=== PATIENT | male | born 1950 | race African-American/Black ===

== ENCOUNTER 2017-11-18 10:57 | Inpatient (IN) | payer OTHER, MEDICAID ==
[2017-11-18 13:33] LABS: BASOPHILS % (AUTO) 0.9 % (0.2-1.0); EOSINOPHILS # (AUTO) 0.1 x10^3/uL (0.0-0.2); EOSINOPHILS % (AUTO) 2.3 % (0.9-2.9); HEMATOCRIT 46.6 % (42.0-54.0); LYMPHOCYTES # (AUTO) 0.7 X10^3/uL (1.3-2.9); LYMPHOCYTES % (AUTO) 13.2 % (21.0-51.0); MEAN CORPUSCULAR HGB CONC 32.2 g/dL (33.0-35.0); MEAN CORPUSCULAR VOLUME 83.7 fL (80.0-100.0); MEAN PLATELET VOLUME 8.1 fL (7.4-11.0); MONOCYTES # (AUTO) 0.5 x10^3/uL (0.3-0.8); NEUTROPHILS % (AUTO) 74.6 % (42.0-75.0); PLATELET COUNT 249 X10^3/uL (150.0-450.0); RED BLOOD COUNT 5.57 X10^6/uL (4.7-6.0); RED CELL DISTRIBUTION WIDTH 18.3 % (11.6-16.5); WHITE BLOOD COUNT 5.4 X10^3/uL (3.6-10.0)
[2017-11-18 13:43] LABS: ALANINE AMINOTRANSFERASE 39 Units/L (12-78); ALKALINE PHOSPHATASE 82 Units/L (46-116); ASPARTATE AMINO TRANSFERASE 23 Units/L (15-37); BLOOD UREA NITROGEN 32 mg/dL (7-18); CALCIUM 8.9 mg/dL (8.5-10.1); CARBON DIOXIDE 29.3 mmol/L (21-32); CHLORIDE 105 mmol/L (98-107); COR CA(FOR HYPOALB) 9.7 mg/dL (8.5-10.1); CREATININE 1.22 mg/dL (0.70-1.30); SODIUM 139 mmol/L (136-145); TOTAL PROTEIN 7.8 g/dL (6.4-8.2); eGFR BLACK RACES > 60 (>60); eGFR NON BLACK RACES > 60 (>60)
[2017-11-18] MEDS: ROCEPHIN VIAL 1 GM 1 GM in NS 100 ML IV + SPIKE MINIBAG* 100 ML IV SCH (14:00)
[2017-11-18] MEDS: NS 1000 ML 1,000 ML IV SCH (14:15)
[2017-11-18 15:00] LABS: BILIRUBIN,URINE NEGATIVE (NEGATIVE); BLOOD/HEMOGLOBIN,URINE 1+ (NEGATIVE); GLUCOSE, URINE NEGATIVE (NEGATIVE); KETONES,URINE NEGATIVE (NEGATIVE); LEUKOCYTE ESTERASE ,URINE 3+ (NEGATIVE); NITRITES,URINE POSITIVE (NEGATIVE); PROTEIN,URINE 2+ (NEGATIVE); UROBILINOGEN,URINE NORMAL (NORMAL)
[2017-11-18 15:08] LABS: APPEARANCE,URINE SLIGHTLY HAZY (CLEAR); BACTERIA,URINE 3+ /HPF (NEGATIVE); COLOR,URINE YELLOW (YELLOW); RBC,URINE 0-5 /HPF (NONE SEEN); SQUAMOUS EPITHELIAL CELL,UR RARE /HPF (NEGATIVE)
--- NOTE | 2017-11-18 15:59 | DR.UPDATE ---
H&P Update History and Physical Update: WAS SEEN IN THE OFFICE TODAY. HE WAS ADMITTED FOR LLE PAIN, EDEMA, AND CELLULITIS WELL SHORTNESS OF BREATH. AN H&P WAS COMPLETED PRIOR TO ADMISSION. PATIENT HAS BEEN SEEN AND EXAMINED WITH NO CHANGES NOTED TO H&P. Changes noted: NO Yes with the following:
[2017-11-18] MEDS: DUONEB 0.5 MG/3 MG NEB SCH ×2 (17:30→20:00)
--- NOTE | 2017-11-18 17:33 | CT ---
CT head without contrast Indication: Fall with dyspnea and soft tissue swelling to the frontal region. Small laceration. Technique: Axial images the skullbase to the vertex without contrast. Coronal and sagittal reformats provided. Findings: There is contusion over the frontal bone with soft tissue swelling. There is no acute intra cranial hemorrhage, mass or mass effect. No extra-axial fluid collection identified. Global atrophy n oted. Paranasal sinuses and mastoid air cells are clear. Impression: No acute intracranial hemorrhage. Contusion over the frontal bone. Mild global cerebral a trophy. Reported By:
--- NOTE | 2017-11-18 17:44 | VAS ---
Ultrasound bilateral lower extremity venous Doppler Indication: Left lower extremity pain and swelling. Technique: Dynamic grayscale and Doppler imaging through the bilateral lower extremity veins compress ion techniques and spectral analysis. Findings: The bilateral common femoral veins, superficial femoral veins, and popliteal veins are covington nt and compressible with normal respiratory phasicity. Impression: No right or left lower extremity deep vein thrombosis. Reported By:
--- NOTE | 2017-11-18 17:47 | RAD ---
Chest AP portable Indicates though and dyspnea. Fall. Findings: There is cardiomegaly and COPD change with scarring in the bases. Fullness of the right hil a is noted, possibly prominent pulmonary arteries but underlying lesion should be excluded. PA and la teral chest follow-up recommended. Impression: Cardiomegaly and COPD change. Fullness of the right juan could represent lesion. PA and l ateral chest follow-up recommended to further evaluate the possibility of neoplasia Reported By:
[2017-11-18] MEDS: COLACE CAP 100 MG PO PRN (21:10)
[2017-11-18] MEDS: MILK OF MAGNESIA PO PRN (21:11)
[2017-11-19] MEDS: DUONEB 0.5 MG/3 MG NEB SCH ×7 (00:30→20:34)
[2017-11-19] MEDS: NS 1000 ML 1,000 ML IV SCH ×3 (03:19→21:05)
[2017-11-19 06:40] LABS: BASOPHILS % (AUTO) 0.8 % (0.2-1.0); EOSINOPHILS # (AUTO) 0.2 x10^3/uL (0.0-0.2); EOSINOPHILS % (AUTO) 4.7 % (0.9-2.9); HEMATOCRIT 40.9 % (42.0-54.0); HEMOGLOBIN 13.2 g/dL (13.5-18.0); LYMPHOCYTES # (AUTO) 0.7 X10^3/uL (1.3-2.9); MEAN CORPUSCULAR HEMOGLOBIN 26.9 pg (27.0-34.0); MEAN CORPUSCULAR HGB CONC 32.3 g/dL (33.0-35.0); MEAN CORPUSCULAR VOLUME 83.2 fL (80.0-100.0); MONOCYTES # (AUTO) 0.6 x10^3/uL (0.3-0.8); MONOCYTES % (AUTO) 13.2 % (0.0-13.0); NEUTROPHILS % (AUTO) 66.3 % (42.0-75.0); PLATELET COUNT 202 X10^3/uL (150.0-450.0); RED BLOOD COUNT 4.91 X10^6/uL (4.7-6.0); RED CELL DISTRIBUTION WIDTH 17.8 % (11.6-16.5); WHITE BLOOD COUNT 4.5 X10^3/uL (3.6-10.0)
[2017-11-19 06:59] LABS: ALANINE AMINOTRANSFERASE 29 Units/L (12-78); ALBUMIN 2.5 g/dL (3.4-5.0); ALKALINE PHOSPHATASE 64 Units/L (46-116); ASPARTATE AMINO TRANSFERASE 20 Units/L (15-37); BLOOD UREA NITROGEN 23 mg/dL (7-18); CALCIUM 7.8 mg/dL (8.5-10.1); CARBON DIOXIDE 28.8 mmol/L (21-32); CHLORIDE 107 mmol/L (98-107); CREATININE 0.93 mg/dL (0.70-1.30); SODIUM 141 mmol/L (136-145); TOTAL PROTEIN 6.6 g/dL (6.4-8.2); eGFR BLACK RACES > 60 (>60); eGFR NON BLACK RACES > 60 (>60)
[2017-11-19] MEDS ORDERED: ROCEPHIN VIAL 1 GM ONE (08:39)
[2017-11-19] MEDS: ROCEPHIN VIAL 1 GM 1 GM in NS 100 ML IV + SPIKE MINIBAG* 100 ML IV SCH (08:41)
--- NOTE | 2017-11-19 16:31 | CT ---
CT chest with contrast Indication: Shortness of breath Comparison: None available Technique: Multiple axial images of the chest were obtained from the thoracic inlet to the upper abdo men after the administration of IV contrast. Findings: The thyroid gland is unremarkable. Heart size is normal without pericardial effusion. Moderate lopez ry artery atherosclerotic disease is noted. The thoracic aorta is tortuous with however normal in gabriel iber and configuration. The pulmonary artery demonstrates normal opacification without central fillin g defect to suggest PTE. There is dilatation the pulmonary artery measuring 3.9 cm in greatest calibe r. There is centrilobular emphysema and diffuse peribronchial thickening. A few foci of ground-glass opacity within the periphery the right upper lobe scattered within the periphery the right lower lobe and more severely affecting the the right lower lobe most consistent with multi focal infiltrates. T here is mild scarring/atelectasis within the left lung base otherwise left lung is clear. No pleural effusion or pneumothorax. Imaging of the upper abdomen demonstrates no acute inflammatory process. No acute osseous abnormality. Impression: 1. Small peripheral ground-glass opacities within the right upper and middle lobes with more confluen t ground-glass opacities within the dependent right lower lobe are most consistent with multi focal i nfiltrate/pneumonia. 2. Bilateral peribronchial thickening likely represents acute on chronic bronchitis in the setting of COPD. 3. Small right-sided pleural effusion. 4. Borderline enlarged lower paratracheal, subcarinal and bilateral hilar lymph nodes are indetermina te, this is likely reactive to the above described acute infiltrates however correlation with follow- up imaging in 3-6 months is recommended to ensure stability/resolution. 5. Mild pulmonary arterial dilatation is most consistent with pulmonary arterial hypertension. 6. Moderate coronary artery atherosclerotic disease. Reported By:
[2017-11-20] MEDS: DUONEB 0.5 MG/3 MG NEB SCH ×6 (01:07→16:45)
[2017-11-20] MEDS ORDERED: LASIX IVP SCH (06:00)
[2017-11-20 06:46] LABS: BASOPHILS % (AUTO) 0.7 % (0.2-1.0); EOSINOPHILS # (AUTO) 0.2 x10^3/uL (0.0-0.2); EOSINOPHILS % (AUTO) 2.6 % (0.9-2.9); HEMOGLOBIN 13.4 g/dL (13.5-18.0); LYMPHOCYTES # (AUTO) 0.5 X10^3/uL (1.3-2.9); LYMPHOCYTES % (AUTO) 8.6 % (21.0-51.0); MEAN CORPUSCULAR HGB CONC 31.9 g/dL (33.0-35.0); MEAN CORPUSCULAR VOLUME 84.5 fL (80.0-100.0); MEAN PLATELET VOLUME 7.9 fL (7.4-11.0); MONOCYTES # (AUTO) 0.7 x10^3/uL (0.3-0.8); MONOCYTES % (AUTO) 11.2 % (0.0-13.0); NEUTROPHILS # (AUTO) 4.8 x10^3/uL (2.2-4.8); NEUTROPHILS % (AUTO) 76.9 % (42.0-75.0); PLATELET COUNT 219 X10^3/uL (150.0-450.0); RED BLOOD COUNT 4.97 X10^6/uL (4.7-6.0); RED CELL DISTRIBUTION WIDTH 18.4 % (11.6-16.5); WHITE BLOOD COUNT 6.3 X10^3/uL (3.6-10.0)
[2017-11-20 06:51] LABS: ALANINE AMINOTRANSFERASE 28 Units/L (12-78); ALBUMIN 2.7 g/dL (3.4-5.0); ALKALINE PHOSPHATASE 67 Units/L (46-116); ASPARTATE AMINO TRANSFERASE 27 Units/L (15-37); BLOOD UREA NITROGEN 14 mg/dL (7-18); CALCIUM 8.5 mg/dL (8.5-10.1); CARBON DIOXIDE 30.2 mmol/L (21-32); CHLORIDE 105 mmol/L (98-107); COR CA(FOR HYPOALB) 9.5 mg/dL (8.5-10.1); CREATININE 0.83 mg/dL (0.70-1.30); SODIUM 140 mmol/L (136-145); TOTAL PROTEIN 7.2 g/dL (6.4-8.2); eGFR BLACK RACES > 60 (>60); eGFR NON BLACK RACES > 60 (>60)
--- NOTE | 2017-11-20 07:33 | RAD ---
HISTORY: Shortness of breath. Prior history of COPD, PAD and diabetes. Study: Single-view chest Comparison: CT scan of the chest done 11/19/2017. Findings: Trachea is midline. There is cardiomegaly with aortic uncoiling and pulmonary vascular congestion. Th ere are changes of COPD with bronchitic changes in the lung bases. No significant pleural fluid is se en. A pneumothorax is not identified. Osseous structures are intact. IMPRESSION: COPD with bronchitic changes in the lung bases, more so on the right. Reported By:
[2017-11-20] MEDS: NS 1000 ML 1,000 ML IV SCH ×2 (08:25→17:31)
[2017-11-20] MEDS ORDERED: ROCEPHIN VIAL 1 GM ONE (08:33)
[2017-11-20] MEDS: ROCEPHIN VIAL 1 GM 1 GM in NS 100 ML IV + SPIKE MINIBAG* 100 ML IV SCH (08:34)
[2017-11-20] MEDS ORDERED: PATIENT'S HOME MEDICATION (Albuterol Sulfate [Proair Hfa] 2 PUFF) INH PRN (09:38)
[2017-11-20] MEDS ORDERED: PATIENT'S HOME MEDICATION (Aspirin [Aspirin] 81 MG) PO SCH (09:45)
[2017-11-20] MEDS: NORCO 5/325 MG TAB PO PRN (09:46)
[2017-11-20] MEDS: COLACE CAP 100 MG PO PRN (09:46)
[2017-11-20] MEDS: MILK OF MAGNESIA PO PRN (09:46)
[2017-11-20] MEDS: ZESTRIL TAB 5 MG PO SCH (10:23)
[2017-11-20] MEDS: NORVASC TAB 5 MG PO SCH (10:23)
[2017-11-20] MEDS ORDERED: PROVENTIL NEB TX 0.083% 2.5MG/ 3ML NEB PRN (13:00)
--- NOTE | 2017-11-20 14:25 | PCM.PROG ---
Progress Note - Progress Note for Day of Date: 11/19/17 - Subjective Subjective: WAS ADMITTED FOR LLE EDEMA, CELLULITIS, AND SHORTNESS OF BREATH. TODAY, HE IS ALERT AND ORIENTED, LYING IN BED ON MORNING ROUNDS. HE CONTINUES WITH COMPLAINTS OF SHORTNESS OF BREATH AND PAIN TO THE LEFT LOWER LEG. ON EXAMINATION, HEART IS REGULAR IN RATE AND RHYTHM. BIALTERAL LUNGS ARE NOTED WITH RHONCHI THROUGHOUT. HE IS CURRENTLY UTILIZING OXYGEN VIA NASAL CANNULA AT 2L/MIN. STAFF REPORTS THAT OXYGEN SATURATION HAVE DROPPED TO HIGH 80S ON NASAL CANNULA THROUGHOUT THE NIGHT. ABDOMEN IS ROUND, SOFT, AND NON- TENDER WITH NORMAL BOWEL SOUNDS NOTED IN ALL QUADRANTS. LEFT LOWER EXTREMITY CONTINUES WITH EDEMA AND PAIN TO PALPATION. WARMTH NOTED TO SITE. THERE IS NORMAL RANGE OF MOTION NOTED TO ALL EXTREMITIES. VENOUS DOPPLER WAS NEGATIVE FOR DVT. HIS VITALS THIS MORNING ARE 98.3-73-18-93%-105/70. LABS WERE OBTAINED. ABNORMAL LAB VALUES INCLUDE THE FOLLOWING: HGB 13.2, HCT 40.9, BUN 23, CALCIUM 7.8, ALBUMIN 2.5. A URINALYSIS WAS OBTAINED ON ADMISSION AND REVEALED WBC TNTC, RBC 0-5, BACTERIA 3+, LEUKOCYTES 3+. URINE CULTURE, SPUTUM CULTURE, AND BLOOD CULTURES ARE PENDING. A CHEST XRAY WAS OBTAINED ON ADMISSION AND REPORTED CARDIOMEGALY AND COPD CHANGE. FULLNESS OF THE RGHT VELIA COULD REPRESENT LESION. FOLLOW-UP RECOMMENDED TO FURTHER EVALUATE THE POSSIBILITY OF NEOPLASIA. TODAY, WE PLAN TO OBTAIN AN ECHOCARDIOGRAM AND A CHEST CT WITH CONTRAST. OTHERWISE, WE WILL CONTINUE WITH ROCEPHIN 1GM IV DAILY FOR CELLULITIS AND URINARY TRACT INFECTION. WE PLAN TO FOLLOW UP WITH AM LABS AND CONTINUE TO MONITOR PATIENT . - Past Medical Family Social History Past Med/Fam/Surg Hx: No changes since H&P Allergies: Allergies No Known Drug Allergies Allergy (Verified 11/18/17 13:50) - Review of Systems ROS: No change since H&P - Vital Signs and I&O's Vital Signs: Temperature 98.0 F Pulse Rate [Left Brachial] 75 Pulse Rate [Bilateral Radial] 77 Pulse Rate 79 Respiratory Rate 21 Blood Pressure [Right Arm] 102/76 Blood Pressure [Left Arm] 114/74 Blood Pressure 128/79 O2 Sat by Pulse Oximetry 92 Intake and Output: Intake & Output 11/18/17 11/19/17 11/20/1711/21/18 11:59 11:59 11:59 11:59 Intake Total 8667 9043 Output Total 485 7120 Balance 974 165 - Physical Exam Oriented: Normal Eyes: Normal Ear: Normal Nose: Normal Throat: Normal Respiratory: Right, Left, Generalized, Diminished, Rhonchi Cardiovascular: Normal : Normal Auscultation: Bowel Sounds: Normal Palpation: Normal Tenderness: Normal Skin: Tender (LEFT LOWER EXTREMITY ), Hot Musculoskeletal: Left, Leg, Swelling, Tender Psychiatric: Normal Mood Description: Calm Affect: Normal Speech Pattern: Clear, Appropriate - Laboratory and Diagnostics Result Diagrams: 11/20/17 06:07 11/20/17 06:07 Labs: 11/18/17 13:16 Blood Blood Culture - Preliminary 11/18/17 13:10 Blood Blood Culture - Preliminary 11/18/17 14:45 Urine,Clean Catch Urine Culture - Final Escherichia Coli 11/18/17 14:35 Sputum - Expectorated Sputum Sputum Culture - Final Enterobacter Cloacae 11/18/17 14:35 Sputum - Expectorated Sputum - Final Laboratory WBC 6.3 X10^3/uL (3.6-10.0) 11/20/17 06:07 RBC 4.97 X10^6/uL (4.7-6.0) 11/20/17 06:07 Hgb 13.4 g/dL (13.5-18.0) L 11/20/17 06:07 Hct 42.0 % (42.0-54.0) 11/20/17 06:07 MCV 84.5 fL (80.0-100.0) 11/20/17 06:07 MCH 27.0 pg (27.0-34.0) 11/20/17 06:07 MCHC 31.9 g/dL (33.0-35.0) L 11/20/17 06:07 RDW 18.4 % (11.6-16.5) H 11/20/17 06:07 Plt Count 219 X10^3/uL (150.0-450.0) 11/20/17 06:07 MPV 7.9 fL (7.4-11.0) 11/20/17 06:07 Neut % 76.9 % (42.0-75.0) H 11/20/17 06:07 Lymph % 8.6 % (21.0-51.0) L 11/20/17 06:07 [place] % 11.2 % (0.0-13.0) 11/20/17 06:07 Eos % 2.6 % (0.9-2.9) 11/20/17 06:07 Baso % 0.7 % (0.2-1.0) 11/20/17 06:07 Neut # 4.8 x10^3/uL (2.2-4.8) 11/20/17 06:07 Lymph # 0.5 X10^3/uL (1.3-2.9) L 11/20/17 06:07 [place] # 0.7 x10^3/uL (0.3-0.8) 11/20/17 06:07 Eos # 0.2 x10^3/uL (0.0-0.2) 11/20/17 06:07 Baso # 0.0 X10^3/uL (0.0-0.1) 11/20/17 06:07 Absolute Nucleated RBC 0.1 /100WBC 11/20/17 06:07 Sodium 140 mmol/L (136-145) 11/20/17 06:07 Corrected Sodium TNP 11/20/17 06:07 Potassium 4.6 mmol/L (3.5-5.1) 11/20/17 06:07 Chloride 105 mmol/L (98-107) 11/20/17 06:07 Carbon Dioxide 30.2 mmol/L (21-32) 11/20/17 06:07 BUN 14 mg/dL (7-18) 11/20/17 06:07 Creatinine 0.83 mg/dL (0.70-1.30) 11/20/17 06:07 Est GFR (MDRD) Af Amer > 60 (>60) 11/20/17 06:07 Est GFR (MDRD) Non-Af > 60 (>60) 11/20/17 06:07 Glucose 73 mg/dL (65-99) 11/20/17 06:07 Calcium 8.5 mg/dL (8.5-10.1) 11/20/17 06:07 Corrected Calcium 9.5 mg/dL (8.5-10.1) 11/20/17 06:07 Total Bilirubin 0.50 mg/dL (0.2-1.0) 11/20/17 06:07 AST 27 Units/L (15-37) 11/20/17 06:07 ALT 28 Units/L (12-78) 11/20/17 06:07 Alkaline Phosphatase 67 Units/L (46-116) 11/20/17 06:07 Total Protein 7.2 g/dL (6.4-8.2) 11/20/17 06:07 Albumin 2.7 g/dL (3.4-5.0) L 11/20/17 06:07 Globulin 4.5 g/dL (2.5-4.5) 11/20/17 06:07 Albumin/Globulin Ratio 0.6 Ratio (1.1-2.1) L 11/20/17 06:07 Specimen Type Clean catch urine 11/18/17 14:45 Urine Color Yellow (YELLOW) 11/18/17 14:45 Urine Appearance Slightly hazy (CLEAR) 11/18/17 14:45 Urine pH 5.0 (5.0 - 8.0) 11/18/17 14:45 Ur Specific [place] 1.020 (1.000-1.030) 11/18/17 14:45 Urine Protein 2+ (NEGATIVE) 11/18/17 14:45 Urine Glucose (UA) Negative (NEGATIVE) 11/18/17 14:45 Urine Ketones Negative (NEGATIVE) 11/18/17 14:45 Urine Occult Blood 1+ (NEGATIVE) 11/18/17 14:45 Urine Nitrite Positive (NEGATIVE) 11/18/17 14:45 Urine Bilirubin Negative (NEGATIVE) 11/18/17 14:45 Urine Urobilinogen Normal (NORMAL) 11/18/17 14:45 Ur Leukocyte Esterase 3+ (NEGATIVE) 11/18/17 14:45 Urine RBC 0-5 /HPF (NONE SEEN) 11/18/17 14:45 Urine WBC Tntc /HPF (NONE SEEN) 11/18/17 14:45 Ur Squamous Epith Cells Rare /HPF (NEGATIVE) 11/18/17 14:45 Urine Bacteria 3+ /HPF (NEGATIVE) 11/18/17 14:45 Ur Culture Indicated? Yes/culture set up 11/18/17 14:45 - Plan (1) Cellulitis Status: Acute Qualifiers: Site of cellulitis: extremity Site of cellulitis of extremity: lower extremity Laterality: left Qualified Code(s): L03.116 - Cellulitis of left lower limb Plan: ROCEPHIN 1GM IV DAILY, CONTINUE TO MONITOR (2) Shortness of breath Status: Acute Plan: CONTINUE SUPPLEMENTAL OXYGEN, OBTAIN ECHO AND CHEST CT, CONTINUE TO MONITOR (3) Urinary tract infection Status: Acute Qualifiers: Urinary tract infection type: acute cystitis Hematuria presence: without hematuria Qualified Code(s): N30.00 - Acute cystitis without hematuria Plan: CONTINUE ROCEPHIN 1GM IV DAILY, CONTINUE TO MONITOR
[2017-11-20 15:48] LABS: ABG BASE EXCESS 6.3 mmol/L (-2.0-2.0)
[2017-11-20 15:50] LABS: ABG HCO3 33.7 mmol/L (22-26)
--- NOTE | 2017-11-20 17:54 | RAD ---
STUDY: CHEST, ONE VIEW History: Decreased O2 saturations. Comparison: November 20, 2017 at 7:12 a.m. Findings: The trachea is midline. There are changes of COPD in both lungs. Patchy airspace and interstitial opa cities are noted in both lung bases. There is prominence of the right hilum. Multiple suprahilar mass on the right is noted. The cardiac silhouette, mediastinum and osseous structures are unchanged. IMPRESSION: 1. Bilateral basilar infiltrates. 2. COPD. 3. Hilar prominence, possible right suprahilar mass. Would consider CT chest for further evaluation. Reported By:
[2017-11-20] MEDS: PEPCID 20 MG IV PREMIX* 20 MG/50 ML BAG IV SCH (21:40)
[2017-11-20] MEDS: PROTONIX INJ 40 MG VIAL IVP SCH (21:40)
[2017-11-20] MEDS: SOLU-Medrol 40 MG VIAL IVP SCH (21:40)
[2017-11-21] MEDS: DUONEB 0.5 MG/3 MG NEB SCH ×6 (01:40→19:57)
[2017-11-21] MEDS: NS 1000 ML 1,000 ML IV SCH ×3 (04:59→19:49)
[2017-11-21] MEDS: SOLU-Medrol 40 MG VIAL IVP SCH ×3 (05:00→22:11)
[2017-11-21 05:30] LABS: ABG BASE EXCESS 5.9 mmol/L (-2.0-2.0)
[2017-11-21 06:50] LABS: BASOPHILS % (AUTO) 0.2 % (0.2-1.0); HEMATOCRIT 40.9 % (42.0-54.0); HEMOGLOBIN 13.1 g/dL (13.5-18.0); LYMPHOCYTES # (AUTO) 0.3 X10^3/uL (1.3-2.9); LYMPHOCYTES % (AUTO) 4.7 % (21.0-51.0); MEAN CORPUSCULAR HEMOGLOBIN 27.1 pg (27.0-34.0); MEAN CORPUSCULAR HGB CONC 31.9 g/dL (33.0-35.0); MEAN CORPUSCULAR VOLUME 84.8 fL (80.0-100.0); MEAN PLATELET VOLUME 8.3 fL (7.4-11.0); MONOCYTES # (AUTO) 0 x10^3/uL (0.3-0.8); MONOCYTES % (AUTO) 0.7 % (0.0-13.0); NEUTROPHILS # (AUTO) 5.1 x10^3/uL (2.2-4.8); NEUTROPHILS % (AUTO) 94.4 % (42.0-75.0); PLATELET COUNT 197 X10^3/uL (150.0-450.0); RED BLOOD COUNT 4.83 X10^6/uL (4.7-6.0); RED CELL DISTRIBUTION WIDTH 18.1 % (11.6-16.5); WHITE BLOOD COUNT 5.4 X10^3/uL (3.6-10.0)
[2017-11-21 07:12] LABS: PLATELET MORPHOLOGY COMMENT NORMAL (NORMAL)
[2017-11-21 07:27] LABS: ALANINE AMINOTRANSFERASE 27 Units/L (12-78); ALBUMIN 2.6 g/dL (3.4-5.0); ALKALINE PHOSPHATASE 59 Units/L (46-116); ASPARTATE AMINO TRANSFERASE 27 Units/L (15-37); BLOOD UREA NITROGEN 20 mg/dL (7-18); CALCIUM 7.9 mg/dL (8.5-10.1); CARBON DIOXIDE 28.6 mmol/L (21-32); CHLORIDE 106 mmol/L (98-107); COR NA(FOR HYPERGLY) 142 mmol/L (136-145); CREATININE 0.95 mg/dL (0.70-1.30); SODIUM 141 mmol/L (136-145); TOTAL PROTEIN 6.9 g/dL (6.4-8.2); eGFR BLACK RACES > 60 (>60); eGFR NON BLACK RACES > 60 (>60)
--- NOTE | 2017-11-21 07:44 | RAD ---
HISTORY: Shortness of breath Study: Chest AP portable Comparison: 11/20/2017 Findings: The heart is mildly enlarged. The aorta is calcified. The juan are normal. No congestive heart failur e is noted. The upper lung gonzalez are clear. Interstitial lung changes are present in the lower lobes bilaterally. There is some clearing of the peribronchial infiltrates present on the prior examinatio n. No pleural effusions are identified. IMPRESSION: Mild cardiomegaly without congestive heart failure Improving bibasilar peribronchial infiltrates which are superimposed on chronic interstitial lung prema nges Reported By:
[2017-11-21] MEDS: NORVASC TAB 5 MG PO SCH (09:56)
[2017-11-21] MEDS: ASPIRIN EC 81 MG PO SCH (09:56)
[2017-11-21] MEDS: ZESTRIL TAB 5 MG PO SCH (09:56)
[2017-11-21] MEDS: ROCEPHIN VIAL 1 GM 1 GM in NS 100 ML IV + SPIKE MINIBAG* 100 ML IV SCH (09:57)
[2017-11-21] MEDS: PROTONIX INJ 40 MG VIAL IVP SCH ×2 (09:57→22:10)
[2017-11-21] MEDS: PEPCID 20 MG IV PREMIX* 20 MG/50 ML BAG IV SCH ×2 (13:56→22:11)
[2017-11-21] MEDS ORDERED: VALIUM PO PRN (20:21)
[2017-11-21] MEDS: NORCO 5/325 MG TAB PO PRN (22:10)
[2017-11-21] MEDS: COLACE CAP 100 MG PO PRN (22:10)
[2017-11-21] MEDS: MILK OF MAGNESIA PO PRN (22:20)
[2017-11-22] MEDS: DUONEB 0.5 MG/3 MG NEB SCH ×5 (00:27→20:58)
[2017-11-22] MEDS: SOLU-Medrol 40 MG VIAL IVP SCH ×3 (05:20→21:36)
[2017-11-22 06:52] LABS: BASOPHILS % (AUTO) 0.3 % (0.2-1.0); HEMATOCRIT 39.5 % (42.0-54.0); HEMOGLOBIN 12.5 g/dL (13.5-18.0); LYMPHOCYTES # (AUTO) 0.3 X10^3/uL (1.3-2.9); LYMPHOCYTES % (AUTO) 7.4 % (21.0-51.0); MEAN CORPUSCULAR HEMOGLOBIN 26.8 pg (27.0-34.0); MEAN CORPUSCULAR HGB CONC 31.7 g/dL (33.0-35.0); MEAN CORPUSCULAR VOLUME 84.6 fL (80.0-100.0); MEAN PLATELET VOLUME 8.2 fL (7.4-11.0); MONOCYTES # (AUTO) 0.1 x10^3/uL (0.3-0.8); NEUTROPHILS # (AUTO) 3.2 x10^3/uL (2.2-4.8); NEUTROPHILS % (AUTO) 89.3 % (42.0-75.0); PLATELET COUNT 174 X10^3/uL (150.0-450.0); RED BLOOD COUNT 4.67 X10^6/uL (4.7-6.0); RED CELL DISTRIBUTION WIDTH 18.2 % (11.6-16.5); WHITE BLOOD COUNT 3.6 X10^3/uL (3.6-10.0)
[2017-11-22 06:59] LABS: ALANINE AMINOTRANSFERASE 27 Units/L (12-78); ALBUMIN 2.6 g/dL (3.4-5.0); ALKALINE PHOSPHATASE 52 Units/L (46-116); ASPARTATE AMINO TRANSFERASE 21 Units/L (15-37); BLOOD UREA NITROGEN 29 mg/dL (7-18); CHLORIDE 107 mmol/L (98-107); COR CA(FOR HYPOALB) 9.1 mg/dL (8.5-10.1); COR NA(FOR HYPERGLY) 144 mmol/L (136-145); CREATININE 1.03 mg/dL (0.70-1.30); SODIUM 142 mmol/L (136-145); TOTAL PROTEIN 6.6 g/dL (6.4-8.2); eGFR BLACK RACES > 60 (>60); eGFR NON BLACK RACES > 60 (>60)
--- NOTE | 2017-11-22 07:02 | RAD ---
HISTORY: Shortness of breath Study: Single-view chest Comparison: 11/21/2017 Findings: The trachea is midline. The cardiac silhouette is borderline in size with a tortuous thoracic aorta. Chronic interstitial lung changes throughout the right and left chest are observed with improved aer ation of the right and left base. The bony thorax is unremarkable. IMPRESSION: 1. Chronic interstitial lung changes with improving airspace opacification of the right and left bas e. Reported By:
[2017-11-22] MEDS: NS 1000 ML 1,000 ML IV SCH ×2 (08:49→21:36)
[2017-11-22] MEDS: ASPIRIN EC 81 MG PO SCH (09:02)
[2017-11-22] MEDS: NORVASC TAB 5 MG PO SCH (09:03)
[2017-11-22] MEDS: PEPCID 20 MG IV PREMIX* 20 MG/50 ML BAG IV SCH ×2 (09:03→21:45)
[2017-11-22] MEDS: ROCEPHIN VIAL 1 GM 1 GM in NS 100 ML IV + SPIKE MINIBAG* 100 ML IV SCH (09:03)
[2017-11-22] MEDS: PROTONIX INJ 40 MG VIAL IVP SCH ×2 (09:03→21:36)
[2017-11-22] MEDS: ZESTRIL TAB 5 MG PO SCH (09:04)
[2017-11-23] MEDS: DUONEB 0.5 MG/3 MG NEB SCH ×6 (01:10→20:53)
[2017-11-23 03:52] LABS: BILIRUBIN,URINE NEGATIVE (NEGATIVE); BLOOD/HEMOGLOBIN,URINE 2+ (NEGATIVE); GLUCOSE, URINE NEGATIVE (NEGATIVE); KETONES,URINE NEGATIVE (NEGATIVE); LEUKOCYTE ESTERASE ,URINE NEGATIVE (NEGATIVE); NITRITES,URINE NEGATIVE (NEGATIVE); PROTEIN,URINE 2+ (NEGATIVE); UROBILINOGEN,URINE NORMAL (NORMAL)
[2017-11-23 04:05] LABS: APPEARANCE,URINE CLEAR (CLEAR); BACTERIA,URINE NEGATIVE /HPF (NEGATIVE); COLOR,URINE YELLOW (YELLOW); HYALINE CASTS, URINE MODERATE /LPF (NEGATIVE); MUCUS,URINE FEW /HPF (NEGATIVE); SQUAMOUS EPITHELIAL CELL,UR RARE /HPF (NEGATIVE)
[2017-11-23 05:45] LABS: ABG BASE EXCESS 4.2 mmol/L (-2.0-2.0)
[2017-11-23 05:47] LABS: ABG ALLEN TEST POS
[2017-11-23] MEDS: SOLU-Medrol 40 MG VIAL IVP SCH ×3 (06:05→21:00)
[2017-11-23] MEDS: NS 1000 ML 1,000 ML IV SCH (06:05)
[2017-11-23 06:40] LABS: HEMOGLOBIN 14.2 g/dL (13.5-18.0); LYMPHOCYTES # (AUTO) 0.3 X10^3/uL (1.3-2.9); MEAN PLATELET VOLUME 8.3 fL (7.4-11.0)
[2017-11-23 06:50] LABS: BASOPHILS % (AUTO) 0.4 % (0.2-1.0); EOSINOPHILS % (AUTO) 0.1 % (0.9-2.9); HEMATOCRIT 44.4 % (42.0-54.0); LYMPHOCYTES % (AUTO) 6.1 % (21.0-51.0); MEAN CORPUSCULAR HEMOGLOBIN 27.4 pg (27.0-34.0); MEAN CORPUSCULAR VOLUME 85.6 fL (80.0-100.0); MONOCYTES # (AUTO) 0.2 x10^3/uL (0.3-0.8); MONOCYTES % (AUTO) 5.2 % (0.0-13.0); NEUTROPHILS % (AUTO) 88.2 % (42.0-75.0); PLATELET COUNT 191 X10^3/uL (150.0-450.0); RED BLOOD COUNT 5.19 X10^6/uL (4.7-6.0); RED CELL DISTRIBUTION WIDTH 18.4 % (11.6-16.5); WHITE BLOOD COUNT 4.5 X10^3/uL (3.6-10.0)
[2017-11-23 07:23] LABS: eGFR BLACK RACES > 60 (>60); eGFR NON BLACK RACES > 60 (>60)
--- NOTE | 2017-11-23 07:34 | RAD ---
HISTORY: Shortness of breath Study: Single-view chest Comparison: 11/22/2017 Findings: The trachea is midline. The cardiac silhouette is unremarkable. Improved aeration of left lower lob e. However, worsening opacification of the right base consistent with persistent bronchopneumonia. T he bony thorax is unremarkable. IMPRESSION: Worsening opacification of the right base consistent with persistent bronchopneumonia Reported By:
[2017-11-23 08:36] LABS: ALANINE AMINOTRANSFERASE 42 Units/L (12-78); ALBUMIN 3.2 g/dL (3.4-5.0); ALKALINE PHOSPHATASE 61 Units/L (46-116); ASPARTATE AMINO TRANSFERASE 34 Units/L (15-37); BLOOD UREA NITROGEN 32 mg/dL (7-18); CALCIUM 8.5 mg/dL (8.5-10.1); CARBON DIOXIDE 33.7 mmol/L (21-32); CHLORIDE 107 mmol/L (98-107); COR CA(FOR HYPOALB) 9.1 mg/dL (8.5-10.1); COR NA(FOR HYPERGLY) 143 mmol/L (136-145); CREATININE 1.08 mg/dL (0.70-1.30); SODIUM 142 mmol/L (136-145); TOTAL PROTEIN 8.4 g/dL (6.4-8.2)
[2017-11-23] MEDS: ASPIRIN EC 81 MG PO SCH (09:03)
[2017-11-23] MEDS: NORVASC TAB 5 MG PO SCH (09:04)
[2017-11-23] MEDS: PROTONIX INJ 40 MG VIAL IVP SCH ×2 (09:04→20:18)
[2017-11-23] MEDS: ZESTRIL TAB 5 MG PO SCH (09:04)
[2017-11-23] MEDS: ROCEPHIN VIAL 1 GM 1 GM in NS 100 ML IV + SPIKE MINIBAG* 100 ML IV SCH (09:05)
[2017-11-23] MEDS: D5W 1000 ML IV 1,000 ML IV SCH ×2 (09:10→18:16)
[2017-11-23] MEDS: PEPCID TAB 20 MG PO SCH ×3 (10:07→20:20)
[2017-11-23] MEDS: VALIUM INJ IVP PRN ×2 (11:46→21:56)
[2017-11-23 12:19] LABS: ABG BASE EXCESS 6.4 mmol/L (-2.0-2.0)
[2017-11-23 12:20] LABS: ABG HCO3 36.4 mmol/L (22-26)
[2017-11-23 13:57] LABS: APPEARANCE,URINE CLOUDY (CLEAR); COLOR,URINE YELLOW (YELLOW); GLUCOSE, URINE NEGATIVE (NEGATIVE); KETONES,URINE NEGATIVE (NEGATIVE); PROTEIN,URINE 2+ (NEGATIVE)
[2017-11-23 13:58] LABS: BILIRUBIN,URINE NEGATIVE (NEGATIVE); BLOOD/HEMOGLOBIN,URINE 5+ (NEGATIVE); NITRITES,URINE NEGATIVE (NEGATIVE)
[2017-11-23 13:59] LABS: BACTERIA,URINE TRACE /HPF (NEGATIVE); LEUKOCYTE ESTERASE ,URINE 1+ (NEGATIVE); RBC,URINE 3+ /HPF (NONE SEEN); SQUAMOUS EPITHELIAL CELL,UR FEW /HPF (NEGATIVE); UROBILINOGEN,URINE NORMAL (NORMAL)
[2017-11-23 14:00] LABS: YEAST,URINE FEW /HPF (NEGATIVE)
[2017-11-23 16:29] LABS: ABG BASE EXCESS 7.3 mmol/L (-2.0-2.0); ABG HCO3 35.1 mmol/L (22-26)
[2017-11-24] MEDS: DUONEB 0.5 MG/3 MG NEB SCH ×6 (01:14→20:05)
[2017-11-24] MEDS: D5W 1000 ML IV 1,000 ML IV SCH ×3 (02:28→21:24)
--- NOTE | 2017-11-24 05:27 | PCM.PROG ---
Progress Note - Progress Note for Day of Date: 11/20/17 - Subjective Subjective: DEMAR WAS ADMITTED FOR LLE EDEMA, CELLULITIS, AND SHORTNESS OF BREATH. TODAY, HE IS ALERT AND ORIENTED, LYING IN BED ON MORNING ROUNDS. HE CONTINUES WITH COMPLAINTS OF SHORTNESS OF BREATH AND PAIN TO THE LEFT LOWER LEG. ON EXAMINATION, HEART IS REGULAR IN RATE AND RHYTHM. BIALTERAL LUNGS ARE NOTED WITH RHONCHI THROUGHOUT. HE IS CURRENTLY UTILIZING OXYGEN VIA VENTI-MASK. ABDOMEN IS ROUND, SOFT, AND NON-TENDER WITH NORMAL BOWEL SOUNDS NOTED IN ALL QUADRANTS. LEFT LOWER EXTREMITY CONTINUES WITH EDEMA AND PAIN TO PALPATION. WARMTH NOTED TO SITE. THERE IS NORMAL RANGE OF MOTION NOTED TO ALL EXTREMITIES. HIS VITALS THIS MORNING ARE 98.2-82-25-93%98/63. OXYGEN SATURATION FELL INTO THE 80S THROUGHOUT THE NIGHT AND PATIENT WAS PLACED ON VENTI-MASK. LABS WERE OBTAINED. ABNORMAL LAB VALUES INCLUDE THE FOLLOWING: HGB 13.4, ALBUMIN 2.7. URINE CULTURE REPORTS GROWTH OF E.COLI. SPUTUM CULTURE REPORTS GROWTH OF ENTEROBACTER CLOACAE. BOTH ARE SENSITIVE TO THE ROCEPHIN THAT HE IS CURRENTLY ON. BLOOD CULTURES ARE PENDING. A CHEST XRAY WAS OBTAINED AND REPORTED COPD WITH BRONCHIATIC CHANGES IN THE LUNG BASES, MORESO ON THE RIGHT. AN ECHOCARDIOGRAM WAS OBTAINED YESTERDAY AND REPORTED AN EJECTION FRACTION OF 60%. CHEST CT REPORTED SMALL PERIPHERAL GROUND GLASS OPACITIES IN THE RIGHT UPPER AND MIDDLE LOBES CONSISTENT WITH PNEUMONIA. BILATERAL PERIBRONCHIAL THICKENING LIKELY REPRESENTING ACUTE ON CHRONIC IN THE SETTING OF COPD. SMALL RIGHT SIDED PLEURAL EFFUSION. MILD PULMONARY ARTERIAL DILATION MOST CONSISTENT WITH PULMONARY ARTERIAL HTN. MILD CORONARY ARTERY ATHEROSCLEROTIC DISEASE. AN ABG WAS OBTAINED DUE TO COMPLAINTS OF SHORTNESS OF BREATH AND DECREASED OXYGEN SATURATIONS. IT REVEALED PC02 61, P02 26, HC03 33.47, 02 SATURATION 44.0 RA, BASE EXCESS 6.3. TODAY, WE WILL START PATIENT ON SOLU-MEDROL 80MG IV Q8H, PROVENTIL NEB TX, NORVASC 5MG DAILY, AD WILL DECREASE LISINOPRIL TO 5MG PO DAILY , AND PROTONIX 40MG IV BID. OTHERWISE, WE WILL CONTINUE WITH ROCEPHIN 1GM IV DAILY FOR CELLULITIS AND URINARY TRACT INFECTION. WE PLAN TO FOLLOW UP WITH AM LABS AND CONTINUE TO MONITOR PATIENT . - Past Medical Family Social History Past Med/Fam/Surg Hx: No changes since H&P Allergies: Allergies No Known Drug Allergies Allergy (Verified 11/18/17 13:50) - Review of Systems ROS: No change since H&P - Vital Signs and I&O's Vital Signs: Temperature 97.8 F Pulse Rate [Left Brachial] 56 Pulse Rate [Bilateral Radial] 77 Pulse Rate 60 Respiratory Rate 25 Blood Pressure [Right Arm] 102/76 Blood Pressure [Left Arm] 117/75 Blood Pressure 128/79 O2 Sat by Pulse Oximetry 100 Intake and Output: Intake & Output 11/21/17 11/22/17 11/23/17 11/24/17 11:59 11:59 11:59 11:59 Intake Total 2730 1481 1120 1087 Output Total 800 179 260 1623 Balance 1930 581 520 87 - Physical Exam Oriented: Normal Eyes: Normal Ear: Normal Nose: Normal Throat: Normal Respiratory: Right, Left, Generalized, Diminished, Rhonchi Cardiovascular: Normal : Normal Auscultation: Bowel Sounds: Normal Palpation: Normal Tenderness: Normal Skin: Tender (LEFT LOWER EXTREMITY ), Hot Musculoskeletal: Left, Leg, Swelling, Tender Psychiatric: Normal Mood Description: Calm Affect: Normal Speech Pattern: Clear, Appropriate - Laboratory and Diagnostics Result Diagrams: 11/23/17 05:59 11/23/17 05:59 Labs: 11/18/17 13:10 Blood Blood Culture - Preliminary 11/18/17 13:16 Blood Blood Culture - Preliminary 11/18/17 14:45 Urine,Clean Catch Urine Culture - Final Escherichia Coli 11/18/17 14:35 Sputum - Expectorated Sputum Sputum Culture - Final Enterobacter Cloacae 11/18/17 14:35 Sputum - Expectorated Sputum - Final Laboratory WBC 4.5 X10^3/uL (3.6-10.0) 11/23/17 05:59 RBC 5.19 X10^6/uL (4.7-6.0) 11/23/17 05:59 Hgb 14.2 g/dL (13.5-18.0) 11/23/17 05:59 Hct 44.4 % (42.0-54.0) 11/23/17 05:59 MCV 85.6 fL (80.0-100.0) 11/23/17 05:59 MCH 27.4 pg (27.0-34.0) 11/23/17 05:59 MCHC 32.0 g/dL (33.0-35.0) L 11/23/17 05:59 RDW 18.4 % (11.6-16.5) H 11/23/17 05:59 Plt Count 191 X10^3/uL (150.0-450.0) 11/23/17 05:59 Plt Count Comment Adequate (ADEQUATE) 11/21/17 05:55 MPV 8.3 fL (7.4-11.0) 11/23/17 05:59 Neut % 88.2 % (42.0-75.0) H 11/23/17 05:59 Lymph % 6.1 % (21.0-51.0) L 11/23/17 05:59 [place] % 5.2 % (0.0-13.0) 11/23/17 05:59 Eos % 0.1 % (0.9-2.9) L 11/23/17 05:59 Baso % 0.4 % (0.2-1.0) 11/23/17 05:59 Neut # 4.0 x10^3/uL (2.2-4.8) 11/23/17 05:59 Lymph # 0.3 X10^3/uL (1.3-2.9) L 11/23/17 05:59 [place] # 0.2 x10^3/uL (0.3-0.8) L 11/23/17 05:59 Eos # 0.0 x10^3/uL (0.0-0.2) 11/23/17 05:59 Baso # 0.0 X10^3/uL (0.0-0.1) 11/23/17 05:59 Absolute Nucleated RBC 0.2 /100WBC 11/23/17 05:59 Total Counted 100 11/21/17 05:55 Neutrophils % (Manual) 93 % (39-76) H 11/21/17 05:55 Lymphocytes % (Manual) 6 % (13-43) L 11/21/17 05:55 Monocytes % (Manual) 1 % (4-9) L 11/21/17 05:55 Plt Morphology Comment Normal (NORMAL) 11/21/17 05:55 RBC Morphology Normal (NORMAL) 11/21/17 05:55 Sample Site Rb 11/23/17 16:22 ABG pH 7.340 (7.35-7.45) L 11/23/17 16:22 ABG pCO2 65.0 mmHg (35.0-45.0) H* 11/23/17 16:22 ABG pO2 89.0 mmHg (80.0-100.0) 11/23/17 16:22 ABG HCO3 35.1 mmol/L (22-26) H* 11/23/17 16:22 ABG O2 Saturation 96.0 % (90-100) 11/23/17 16:22 ABG Base Excess 7.3 mmol/L (-2.0-2.0) H 11/23/17 16:22 Colin Test Na 11/23/17 16:22 A-a Gradient 79.0 mmHg 11/23/17 16:22 FiO2 35.000 11/23/17 16:22 Blood Gas Comments Pt linda well. cdn 11/23/17 16:22 Sodium 142 mmol/L (136-145) 11/23/17 05:59 Corrected Sodium 143 mmol/L (136-145) 11/23/17 05:59 Potassium 6.0 mmol/L (3.5-5.1) H* 11/23/17 05:59 Chloride 107 mmol/L (98-107) 11/23/17 05:59 Carbon Dioxide 33.7 mmol/L (21-32) H 11/23/17 05:59 BUN 32 mg/dL (7-18) H 11/23/17 05:59 Creatinine 1.08 mg/dL (0.70-1.30) 11/23/17 05:59 Est GFR (MDRD) Af Amer > 60 (>60) 11/23/17 05:59 Est GFR (MDRD) Non-Af > 60 (>60) 11/23/17 05:59 Glucose 126 mg/dL (65-99) H 11/23/17 05:59 Calcium 8.5 mg/dL (8.5-10.1) 11/23/17 05:59 Corrected Calcium 9.1 mg/dL (8.5-10.1) 11/23/17 05:59 Total Bilirubin 0.30 mg/dL (0.2-1.0) 11/23/17 05:59 AST 34 Units/L (15-37) 11/23/17 05:59 ALT 42 Units/L (12-78) 11/23/17 05:59 Alkaline Phosphatase 61 Units/L (46-116) 11/23/17 05:59 Total Protein 8.4 g/dL (6.4-8.2) H 11/23/17 05:59 Albumin 3.2 g/dL (3.4-5.0) L 11/23/17 05:59 Globulin 5.2 g/dL (2.5-4.5) H 11/23/17 05:59 Albumin/Globulin Ratio 0.6 Ratio (1.1-2.1) L 11/23/17 05:59 Specimen Type Catherized urine 11/23/17 13:37 Urine Color Yellow (YELLOW) 11/23/17 13:37 Urine Appearance Cloudy (CLEAR) 11/23/17 13:37 Urine pH 5.0 (5.0 - 8.0) 11/23/17 13:37 Ur Specific [place] 1.025 (1.000-1.030) 11/23/17 13:37 Urine Protein 2+ (NEGATIVE) 11/23/17 13:37 Urine Glucose (UA) Negative (NEGATIVE) 11/23/17 13:37 Urine Ketones Negative (NEGATIVE) 11/23/17 13:37 Urine Occult Blood 5+ (NEGATIVE) 11/23/17 13:37 Urine Nitrite Negative (NEGATIVE) 11/23/17 13:37 Urine Bilirubin Negative (NEGATIVE) 11/23/17 13:37 Urine Urobilinogen Normal (NORMAL) 11/23/17 13:37 Ur Leukocyte Esterase 1+ (NEGATIVE) 11/23/17 13:37 Urine RBC 3+ /HPF (NONE SEEN) 11/23/17 13:37 Urine WBC 2+ /HPF (NONE SEEN) 11/23/17 13:37 Ur Squamous Epith Cells Few /HPF (NEGATIVE) 11/23/17 13:37 Urine Bacteria Trace /HPF (NEGATIVE) 11/23/17 13:37 Hyaline Casts Moderate /LPF (NEGATIVE) 11/23/17 02:24 Urine Mucus Few /HPF (NEGATIVE) 11/23/17 02:24 Urine Yeast Few /HPF (NEGATIVE) 11/23/17 13:37 Ur Culture Indicated? Yes/culture set up 11/23/17 13:37 - Plan (1) Cellulitis Status: Acute Qualifiers: Site of cellulitis: extremity Site of cellulitis of extremity: lower extremity Laterality: left Qualified Code(s): L03.116 - Cellulitis of left lower limb Plan: ROCEPHIN 1GM IV DAILY, CONTINUE TO MONITOR (2) Shortness of breath Status: Acute Plan: CONTINUE SUPPLEMENTAL OXYGEN, OBTAIN ECHO AND CHEST CT, CONTINUE TO MONITOR (3) Urinary tract infection Status: Acute Qualifiers: Urinary tract infection type: acute cystitis Hematuria presence: without hematuria Qualified Code(s): N30.00 - Acute cystitis without hematuria Plan: CONTINUE ROCEPHIN 1GM IV DAILY, CONTINUE TO MONITOR
[2017-11-24 05:37] LABS: ABG HCO3 38.1 mmol/L (22-26)
[2017-11-24 06:17] LABS: BASOPHILS % (AUTO) 0.9 % (0.2-1.0); HEMATOCRIT 42.3 % (42.0-54.0); HEMOGLOBIN 13.5 g/dL (13.5-18.0); LYMPHOCYTES # (AUTO) 0.2 X10^3/uL (1.3-2.9); LYMPHOCYTES % (AUTO) 5.6 % (21.0-51.0); MEAN CORPUSCULAR HEMOGLOBIN 27.1 pg (27.0-34.0); MEAN CORPUSCULAR HGB CONC 31.9 g/dL (33.0-35.0); MEAN CORPUSCULAR VOLUME 84.9 fL (80.0-100.0); MEAN PLATELET VOLUME 8.5 fL (7.4-11.0); MONOCYTES # (AUTO) 0.2 x10^3/uL (0.3-0.8); MONOCYTES % (AUTO) 5.9 % (0.0-13.0); NEUTROPHILS # (AUTO) 3.1 x10^3/uL (2.2-4.8); NEUTROPHILS % (AUTO) 87.6 % (42.0-75.0); PLATELET COUNT 147 X10^3/uL (150.0-450.0); RED BLOOD COUNT 4.98 X10^6/uL (4.7-6.0); RED CELL DISTRIBUTION WIDTH 17.6 % (11.6-16.5); WHITE BLOOD COUNT 3.6 X10^3/uL (3.6-10.0)
[2017-11-24 06:23] LABS: ALANINE AMINOTRANSFERASE 40 Units/L (12-78); ALBUMIN 2.8 g/dL (3.4-5.0); ALKALINE PHOSPHATASE 50 Units/L (46-116); ASPARTATE AMINO TRANSFERASE 26 Units/L (15-37); BLOOD UREA NITROGEN 33 mg/dL (7-18); CALCIUM 8.4 mg/dL (8.5-10.1); CARBON DIOXIDE 31.6 mmol/L (21-32); CHLORIDE 106 mmol/L (98-107); COR CA(FOR HYPOALB) 9.4 mg/dL (8.5-10.1); COR NA(FOR HYPERGLY) 142 mmol/L (136-145); CREATININE 1.02 mg/dL (0.70-1.30); SODIUM 141 mmol/L (136-145); TOTAL PROTEIN 7.1 g/dL (6.4-8.2); eGFR BLACK RACES > 60 (>60); eGFR NON BLACK RACES > 60 (>60)
[2017-11-24 07:00] LABS: BAND NEUTROPHILS % 4 % (0-10)
[2017-11-24 07:01] LABS: PLATELET MORPHOLOGY COMMENT NORMAL (NORMAL)
--- NOTE | 2017-11-24 07:44 | RAD ---
History: Shortness of breath, COPD, diabetes, comparison 11/23/2017 Study: Portable AP erect chest labeled 6:44 a.m. shows the cardiac silhouette to be mildly enlarged. The pulmonary vasculature appears at upper limits normal. There has been improvement in the opacity in the right base. Overall fluid status has improved. Impression: 1. Improving fluid status. 2. Clearing infiltration right base. Reported By:
[2017-11-24] MEDS: ASPIRIN EC 81 MG PO SCH (09:58)
[2017-11-24] MEDS: NORVASC TAB 5 MG PO SCH ×2 (09:59→10:06)
[2017-11-24] MEDS: PEPCID TAB 20 MG PO SCH ×2 (09:59→22:25)
[2017-11-24] MEDS: ROCEPHIN VIAL 1 GM 1 GM in NS 100 ML IV + SPIKE MINIBAG* 100 ML IV SCH (09:59)
[2017-11-24] MEDS: PROTONIX INJ 40 MG VIAL IVP SCH ×2 (10:00→21:00)
[2017-11-24] MEDS: ZESTRIL TAB 5 MG PO SCH ×2 (10:00→10:05)
--- NOTE | 2017-11-24 13:08 | PCM.PROG ---
Progress Note - Progress Note for Day of Date: 11/21/17 - Subjective Subjective: IS BEING TREATED FOR LLE CELLULITIS, PEUMONIA, COPD EXACERBATION, AND A URINARY TRACT INFECTION. TODAY, HE IS ALERT AND ORIENTED, LYING IN BED ON MORNING ROUNDS. HE CONTINUES WITH COMPLAINTS OF SHORTNESS OF BREATH AND PAIN TO THE LEFT LOWER LEG. ON EXAMINATION, HEART IS REGULAR IN RATE AND RHYTHM. BIALTERAL LUNGS ARE NOTED WITH RHONCHI THROUGHOUT. HE IS CURRENTLY UTILIZING HIGH FLOW HEATED OXYGEN. ABDOMEN IS ROUND, SOFT, AND NON-TENDER WITH NORMAL BOWEL SOUNDS NOTED IN ALL QUADRANTS. LEFT LOWER EXTREMITY CONTINUES WITH EDEMA AND PAIN TO PALPATION. WARMTH NOTED TO SITE. THERE IS NORMAL RANGE OF MOTION NOTED TO ALL EXTREMITIES. HIS VITALS THIS MORNING ARE 99.2-90-32-90%-99/ 57. OXYGEN SATURATIONS CONTINUE TO RUN IN THE LOW 90S ON OXYGEN. LABS WERE OBTAINED. ABNORMAL LAB VALUES INCLUDE THE FOLLOWING: HGB 13.1, HCT 40.9, POTASSIUM 5.3, BUN 20, GLUCOSE 133, CALCIUM 7.9. AN ABG WAS OBTAINED AND REVEALED PH 7.320, PC02 66, P02 77, HC03 34, BASE EXCESS 5.9. A CHEST XRAY WAS OBTAINED AND REPORTED MILD CARDIOMEGALY WITHOUT CONGESTIVE HEART FAILURE. IMPROVING BIBASILAR PERIBRONCHIAL INFILTRATES WHICH ARE SUPERIMPOSED ON CHRONIC INTERSTITIAL LUNG CHANGES. TODAY, WE WILL CONTINUE WITH IV ANTIBIOTICS, RESPIRATORY TREATMENTS, AND SUPPLEMENTAL OXYGEN. WE PLAN TO FOLLOW UP WITH AM LABS AND CONTINUE TO MONITOR PATIENT. - Past Medical Family Social History Past Med/Fam/Surg Hx: No changes since H&P Allergies: Allergies No Known Drug Allergies Allergy (Verified 11/18/17 13:50) - Review of Systems ROS: No change since H&P - Vital Signs and I&O's Vital Signs: Temperature 97.8 F Pulse Rate [Left Brachial] 66 Pulse Rate [Bilateral Radial] 77 Pulse Rate 60 Respiratory Rate 24 Blood Pressure [Right Arm] 102/76 Blood Pressure [Left Arm] 118/67 Blood Pressure 128/79 O2 Sat by Pulse Oximetry 99 Intake and Output: Intake & Output 11/22/17 11/23/17 11/24/17 11/25/17 11:59 11:59 11:59 11:59 Intake Total 1481 1120 1087 Output Total 560 378 9289 Balance 581 520 87 - Physical Exam Oriented: Normal Eyes: Normal Ear: Normal Nose: Normal Throat: Normal Respiratory: Right, Left, Generalized, Diminished, Rhonchi Cardiovascular: Normal : Normal Auscultation: Bowel Sounds: Normal Palpation: Normal Tenderness: Normal Skin: Tender (LEFT LOWER EXTREMITY ), Hot Musculoskeletal: Left, Leg, Swelling, Tender Psychiatric: Normal Mood Description: Calm Affect: Normal Speech Pattern: Clear, Appropriate - Laboratory and Diagnostics Result Diagrams: 11/24/17 05:37 11/24/17 05:37 Labs: 11/18/17 13:10 Blood Blood Culture - Final 11/18/17 13:16 Blood Blood Culture - Final 11/18/17 14:45 Urine,Clean Catch Urine Culture - Final Escherichia Coli 11/18/17 14:35 Sputum - Expectorated Sputum Sputum Culture - Final Enterobacter Cloacae 11/18/17 14:35 Sputum - Expectorated Sputum - Final Laboratory WBC 3.6 X10^3/uL (3.6-10.0) 11/24/17 05:37 RBC 4.98 X10^6/uL (4.7-6.0) 11/24/17 05:37 Hgb 13.5 g/dL (13.5-18.0) 11/24/17 05:37 Hct 42.3 % (42.0-54.0) 11/24/17 05:37 MCV 84.9 fL (80.0-100.0) 11/24/17 05:37 MCH 27.1 pg (27.0-34.0) 11/24/17 05:37 MCHC 31.9 g/dL (33.0-35.0) L 11/24/17 05:37 RDW 17.6 % (11.6-16.5) H 11/24/17 05:37 Plt Count 147 X10^3/uL (150.0-450.0) L 11/24/17 05:37 Plt Count Comment Adequate (ADEQUATE) 11/24/17 05:37 MPV 8.5 fL (7.4-11.0) 11/24/17 05:37 Neut % 87.6 % (42.0-75.0) H 11/24/17 05:37 Lymph % 5.6 % (21.0-51.0) L 11/24/17 05:37 [place] % 5.9 % (0.0-13.0) 11/24/17 05:37 Eos % 0.0 % (0.9-2.9) L 11/24/17 05:37 Baso % 0.9 % (0.2-1.0) 11/24/17 05:37 Neut # 3.1 x10^3/uL (2.2-4.8) 11/24/17 05:37 Lymph # 0.2 X10^3/uL (1.3-2.9) L 11/24/17 05:37 [place] # 0.2 x10^3/uL (0.3-0.8) L 11/24/17 05:37 Eos # 0.0 x10^3/uL (0.0-0.2) 11/24/17 05:37 Baso # 0.0 X10^3/uL (0.0-0.1) 11/24/17 05:37 Absolute Nucleated RBC 0.1 /100WBC 11/24/17 05:37 Total Counted 100 11/24/17 05:37 Neutrophils % (Manual) 80 % (39-76) H 11/24/17 05:37 Band Neutrophils % 4 % (0-10) 11/24/17 05:37 Lymphocytes % (Manual) 12 % (13-43) L 11/24/17 05:37 Monocytes % (Manual) 4 % (4-9) 11/24/17 05:37 Plt Morphology Comment Normal (NORMAL) 11/24/17 05:37 RBC Morphology Normal (NORMAL) 11/24/17 05:37 Sample Site [facility] 11/24/17 05:19 ABG pH 7.260 (7.35-7.45) L 11/24/17 05:19 ABG pCO2 85.0 mmHg (35.0-45.0) H* 11/24/17 05:19 ABG pO2 78.0 mmHg (80.0-100.0) L 11/24/17 05:19 ABG HCO3 38.1 mmol/L (22-26) H* 11/24/17 05:19 ABG O2 Saturation 93.0 % (90-100) 11/24/17 05:19 ABG Base Excess 8.0 mmol/L (-2.0-2.0) H 11/24/17 05:19 Colin Test Na 11/24/17 05:19 A-a Gradient 65.0 mmHg 11/24/17 05:19 FiO2 35.000 11/24/17 05:19 Blood Gas Comments Sally abg well-mtf 11/24/17 05:19 Sodium 141 mmol/L (136-145) 11/24/17 05:37 Corrected Sodium 142 mmol/L (136-145) 11/24/17 05:37 Potassium 5.7 mmol/L (3.5-5.1) H 11/24/17 05:37 Chloride 106 mmol/L (98-107) 11/24/17 05:37 Carbon Dioxide 31.6 mmol/L (21-32) 11/24/17 05:37 BUN 33 mg/dL (7-18) H 11/24/17 05:37 Creatinine 1.02 mg/dL (0.70-1.30) 11/24/17 05:37 Est GFR (MDRD) Af Amer > 60 (>60) 11/24/17 05:37 Est GFR (MDRD) Non-Af > 60 (>60) 11/24/17 05:37 Glucose 144 mg/dL (65-99) H 11/24/17 05:37 Calcium 8.4 mg/dL (8.5-10.1) L 11/24/17 05:37 Corrected Calcium 9.4 mg/dL (8.5-10.1) 11/24/17 05:37 Total Bilirubin 0.40 mg/dL (0.2-1.0) 11/24/17 05:37 AST 26 Units/L (15-37) 11/24/17 05:37 ALT 40 Units/L (12-78) 11/24/17 05:37 Alkaline Phosphatase 50 Units/L (46-116) 11/24/17 05:37 Total Protein 7.1 g/dL (6.4-8.2) 11/24/17 05:37 Albumin 2.8 g/dL (3.4-5.0) L 11/24/17 05:37 Globulin 4.3 g/dL (2.5-4.5) 11/24/17 05:37 Albumin/Globulin Ratio 0.7 Ratio (1.1-2.1) L 11/24/17 05:37 Specimen Type Catherized urine 11/23/17 13:37 Urine Color Yellow (YELLOW) 11/23/17 13:37 Urine Appearance Cloudy (CLEAR) 11/23/17 13:37 Urine pH 5.0 (5.0 - 8.0) 11/23/17 13:37 Ur Specific [place] 1.025 (1.000-1.030) 11/23/17 13:37 Urine Protein 2+ (NEGATIVE) 11/23/17 13:37 Urine Glucose (UA) Negative (NEGATIVE) 11/23/17 13:37 Urine Ketones Negative (NEGATIVE) 11/23/17 13:37 Urine Occult Blood 5+ (NEGATIVE) 11/23/17 13:37 Urine Nitrite Negative (NEGATIVE) 11/23/17 13:37 Urine Bilirubin Negative (NEGATIVE) 11/23/17 13:37 Urine Urobilinogen Normal (NORMAL) 11/23/17 13:37 Ur Leukocyte Esterase 1+ (NEGATIVE) 11/23/17 13:37 Urine RBC 3+ /HPF (NONE SEEN) 11/23/17 13:37 Urine WBC 2+ /HPF (NONE SEEN) 11/23/17 13:37 Ur Squamous Epith Cells Few /HPF (NEGATIVE) 11/23/17 13:37 Urine Bacteria Trace /HPF (NEGATIVE) 11/23/17 13:37 Hyaline Casts Moderate /LPF (NEGATIVE) 11/23/17 02:24 Urine Mucus Few /HPF (NEGATIVE) 11/23/17 02:24 Urine Yeast Few /HPF (NEGATIVE) 11/23/17 13:37 Ur Culture Indicated? Yes/culture set up 11/23/17 13:37 - Plan (1) Pneumonia Status: Acute Qualifiers: Pneumonia type: due to other aerobic Gram-negative bacteria Laterality: bilateral Lung location: lower lobe of lung Qualified Code(s): J15.6 - Pneumonia due to other Gram-negative bacteria Plan: CONTINUE ROCEPHIN, CONTINUE RESPIRATORY TREATMENTS, CONTINUE SUPPLEMETAL OXYGEN, CONTINUE TO MONITOR (2) COPD with acute exacerbation Status: Acute Plan: CONTINUE RESPIRATORY TREATMENTS, CONTINUE SUPPLEMETAL OXYGEN, CONTINUE TO MONITOR (3) Respiratory failure with hypercapnia Status: Acute Qualifiers: Chronicity: acute Qualified Code(s): J96.02 - Acute respiratory failure with hypercapnia Plan: CONTINUE ROCEPHIN, CONTINUE RESPIRATORY TREATMENTS, CONTINUE SUPPLEMETAL OXYGEN, CONTINUE TO MONITOR (4) Cellulitis Status: Acute Qualifiers: Site of cellulitis: extremity Site of cellulitis of extremity: lower extremity Laterality: left Qualified Code(s): L03.116 - Cellulitis of left lower limb Plan: ROCEPHIN 1GM IV DAILY, CONTINUE TO MONITOR (5) Shortness of breath Status: Acute Plan: CONTINUE SUPPLEMENTAL OXYGEN, OBTAIN ECHO AND CHEST CT, CONTINUE TO MONITOR (6) Urinary tract infection Status: Acute Qualifiers: Urinary tract infection type: acute cystitis Hematuria presence: without hematuria Qualified Code(s): N30.00 - Acute cystitis without hematuria Plan: CONTINUE ROCEPHIN 1GM IV DAILY, CONTINUE TO MONITOR
[2017-11-24 13:34] LABS: ABG HCO3 35.7 mmol/L (22-26)
[2017-11-24 14:18] LABS: ABG BASE EXCESS 9.8 mmol/L (-2.0-2.0)
[2017-11-24] MEDS: COLACE CAP 100 MG PO SCH (22:24)
[2017-11-24] MEDS: MILK OF MAGNESIA PO SCH (22:25)
[2017-11-25] MEDS: DUONEB 0.5 MG/3 MG NEB SCH ×6 (00:52→22:00)
[2017-11-25 06:00] LABS: ABG BASE EXCESS 13.7 mmol/L (-2.0-2.0)
[2017-11-25 06:01] LABS: ABG HCO3 42.4 mmol/L (22-26)
[2017-11-25 06:13] LABS: BASOPHILS % (AUTO) 0.1 % (0.2-1.0); EOSINOPHILS % (AUTO) 0.9 % (0.9-2.9); HEMATOCRIT 43.7 % (42.0-54.0); HEMOGLOBIN 13.9 g/dL (13.5-18.0); LYMPHOCYTES # (AUTO) 0.4 X10^3/uL (1.3-2.9); LYMPHOCYTES % (AUTO) 6.6 % (21.0-51.0); MEAN CORPUSCULAR HEMOGLOBIN 26.8 pg (27.0-34.0); MEAN CORPUSCULAR HGB CONC 31.9 g/dL (33.0-35.0); MEAN CORPUSCULAR VOLUME 84.1 fL (80.0-100.0); MEAN PLATELET VOLUME 8.5 fL (7.4-11.0); MONOCYTES # (AUTO) 0.6 x10^3/uL (0.3-0.8); MONOCYTES % (AUTO) 10.8 % (0.0-13.0); NEUTROPHILS # (AUTO) 4.5 x10^3/uL (2.2-4.8); NEUTROPHILS % (AUTO) 81.6 % (42.0-75.0); PLATELET COUNT 161 X10^3/uL (150.0-450.0); RED CELL DISTRIBUTION WIDTH 17.3 % (11.6-16.5); WHITE BLOOD COUNT 5.5 X10^3/uL (3.6-10.0)
[2017-11-25 06:23] LABS: ALANINE AMINOTRANSFERASE 43 Units/L (12-78); ALBUMIN 2.7 g/dL (3.4-5.0); ALKALINE PHOSPHATASE 51 Units/L (46-116); ASPARTATE AMINO TRANSFERASE 28 Units/L (15-37); BLOOD UREA NITROGEN 25 mg/dL (7-18); CALCIUM 8.2 mg/dL (8.5-10.1); CARBON DIOXIDE 34.3 mmol/L (21-32); CHLORIDE 103 mmol/L (98-107); COR CA(FOR HYPOALB) 9.2 mg/dL (8.5-10.1); CREATININE 0.82 mg/dL (0.70-1.30); SODIUM 140 mmol/L (136-145); TOTAL PROTEIN 6.9 g/dL (6.4-8.2); eGFR BLACK RACES > 60 (>60); eGFR NON BLACK RACES > 60 (>60)
--- NOTE | 2017-11-25 06:31 | RAD ---
HISTORY: Shortness of breath Study: Chest AP portable Comparison: 11/24/2017 Findings: The heart is within normal limits in size. The juan are normal. The aorta is calcified. No congestive heart failure is noted. The lungs are generally hyperinflated although there is some subsegmental at electasis in the right lung base. No acute infiltrates or pleural effusions are identified. The bony thorax is unremarkable. IMPRESSION: Mild cardiomegaly without congestive heart failure Subsegmental atelectasis right lung base Reported By:
[2017-11-25] MEDS: D5W 1000 ML IV 1,000 ML IV SCH ×3 (08:18→16:07)
[2017-11-25] MEDS ORDERED: AMINOPHYLLINE INJ 1,000 MG in DEXTROSE 5% 460 ML IV PRN (09:40)
[2017-11-25] MEDS: MILK OF MAGNESIA PO SCH ×3 (09:44→22:07)
[2017-11-25] MEDS: COLACE CAP 100 MG PO SCH ×2 (09:44→22:06)
[2017-11-25] MEDS: PEPCID TAB 20 MG PO SCH ×2 (09:44→22:07)
[2017-11-25] MEDS: NORVASC TAB 5 MG PO SCH (09:45)
[2017-11-25] MEDS: ZESTRIL TAB 5 MG PO SCH (09:46)
[2017-11-25] MEDS: ASPIRIN EC 81 MG PO SCH (09:46)
[2017-11-25] MEDS ORDERED: NS 100 ML IV 100 ML IV ONE (09:47)
[2017-11-25] MEDS: PROTONIX INJ 40 MG VIAL IVP SCH ×2 (09:53→21:00)
[2017-11-25] MEDS: ROCEPHIN VIAL 1 GM 1 GM in NS 100 ML IV + SPIKE MINIBAG* 100 ML IV SCH (09:53)
[2017-11-25] MEDS: AMINOPHYLLINE IV PRN ×3 (11:20→22:05)
[2017-11-25] MEDS: D5W IV PRN ×3 (11:20→22:05)
--- NOTE | 2017-11-25 13:12 | PCM.PROG ---
Progress Note - Progress Note for Day of Date: 11/22/17 - Subjective Subjective: IS BEING TREATED FOR LLE CELLULITIS, PEUMONIA, COPD EXACERBATION, AND A URINARY TRACT INFECTION. TODAY, HE IS LYING IN BED WITH EYES CLOSED ON MORNING ROUNDS. PATIENT IS DIFFICULT TO AROUSE THIS MORNING. ON EXAMINATION, HEART IS REGULAR IN RATE AND RHYTHM. BIALTERAL LUNGS ARE NOTED WITH SCATTERED WHEEZING AND RHONCHI THROUGHOUT. HE IS CURRENTLY UTILIZING HIGH FLOW HEATED OXYGEN. ABDOMEN IS ROUND, SOFT, AND NON-TENDER WITH NORMAL BOWEL SOUNDS NOTED IN ALL QUADRANTS. LEFT LOWER EXTREMITY CONTINUES WITH EDEMA AND WARMTH NOTED TO SITE. STAFF REPORTS THAT PATIENT HAS HAD INTERMITTENT CONFUSION THROUGHOUT THE NIGHT. HIS VITALS THIS MORNING ARE 98.7-73-18-93%-91/51. OXYGEN SATURATIONS CONTINUE TO RUN IN THE LOW 90S ON OXYGEN. LABS WERE OBTAINED. ABNORMAL LAB VALUES INCLUDE THE FOLLOWING: RBC 4.67, HGB 12.5, HCT 39.5, POTASSIUM 5.4, BUN 29, GLUCOSE 168, CALCIUM 8.0, ALBUMIN 2.6. A CHEST XRAY WAS OBTAINED AND REPORTED CHRONIC INTERSTITIAL LUNG CHANGES WITH IMPROVING AIRSPACE OPACIFICATION OF THE RIGHT AND LEFT BASE. TODAY, WE WILL CONTINUE WITH IV ANTIBIOTICS, RESPIRATORY TREATMENTS, AND SUPPLEMENTAL OXYGEN. WE PLAN TO FOLLOW UP WITH AM LABS AND CONTINUE TO MONITOR PATIENT. - Past Medical Family Social History Past Med/Fam/Surg Hx: No changes since H&P Allergies: Allergies No Known Drug Allergies Allergy (Verified 11/18/17 13:50) - Review of Systems ROS: No change since H&P - Vital Signs and I&O's Vital Signs: Temperature 98.1 F Pulse Rate [Left Brachial] 83 Pulse Rate [Bilateral Radial] 77 Pulse Rate 79 Respiratory Rate 25 Blood Pressure [Right Arm] 102/76 Blood Pressure [Left Arm] 127/76 Blood Pressure 128/79 O2 Sat by Pulse Oximetry 99 Intake and Output: Intake & Output 11/23/17 11/24/17 11/25/17 11/26/17 11:59 11:59 11:59 11:59 Intake Total 1120 1087 1159 Output Total 600 1000 1350 Balance 520 87 -191 - Physical Exam Oriented: Other (DROWSY ) Eyes: Normal Ear: Normal Nose: Normal Throat: Normal Respiratory: Right, Left, Generalized, Wheezes, Rhonchi Cardiovascular: Normal : Normal Auscultation: Bowel Sounds: Normal Palpation: Normal Tenderness: Normal Skin: Tender (LEFT LOWER EXTREMITY ), Hot Musculoskeletal: Left, Leg, Swelling, Tender Psychiatric: Normal Mood Description: Calm Affect: Normal Speech Pattern: Clear, Appropriate - Laboratory and Diagnostics Result Diagrams: 11/25/17 05:35 11/25/17 05:35 Labs: 11/23/17 13:37 Urine,Catheterized Urine Culture - Final 11/18/17 13:10 Blood Blood Culture - Final 11/18/17 13:16 Blood Blood Culture - Final 11/18/17 14:45 Urine,Clean Catch Urine Culture - Final Escherichia Coli 11/18/17 14:35 Sputum - Expectorated Sputum Sputum Culture - Final Enterobacter Cloacae 11/18/17 14:35 Sputum - Expectorated Sputum - Final Laboratory WBC 5.5 X10^3/uL (3.6-10.0) 11/25/17 05:35 RBC 5.20 X10^6/uL (4.7-6.0) 11/25/17 05:35 Hgb 13.9 g/dL (13.5-18.0) 11/25/17 05:35 Hct 43.7 % (42.0-54.0) 11/25/17 05:35 MCV 84.1 fL (80.0-100.0) 11/25/17 05:35 MCH 26.8 pg (27.0-34.0) L 11/25/17 05:35 MCHC 31.9 g/dL (33.0-35.0) L 11/25/17 05:35 RDW 17.3 % (11.6-16.5) H 11/25/17 05:35 Plt Count 161 X10^3/uL (150.0-450.0) 11/25/17 05:35 Plt Count Comment Adequate (ADEQUATE) 11/24/17 05:37 MPV 8.5 fL (7.4-11.0) 11/25/17 05:35 Neut % 81.6 % (42.0-75.0) H 11/25/17 05:35 Lymph % 6.6 % (21.0-51.0) L 11/25/17 05:35 [place] % 10.8 % (0.0-13.0) 11/25/17 05:35 Eos % 0.9 % (0.9-2.9) 11/25/17 05:35 Baso % 0.1 % (0.2-1.0) L 11/25/17 05:35 Neut # 4.5 x10^3/uL (2.2-4.8) 11/25/17 05:35 Lymph # 0.4 X10^3/uL (1.3-2.9) L 11/25/17 05:35 [place] # 0.6 x10^3/uL (0.3-0.8) 11/25/17 05:35 Eos # 0.0 x10^3/uL (0.0-0.2) 11/25/17 05:35 Baso # 0.0 X10^3/uL (0.0-0.1) 11/25/17 05:35 Absolute Nucleated RBC 0.3 /100WBC 11/25/17 05:35 Total Counted 100 11/24/17 05:37 Neutrophils % (Manual) 80 % (39-76) H 11/24/17 05:37 Band Neutrophils % 4 % (0-10) 11/24/17 05:37 Lymphocytes % (Manual) 12 % (13-43) L 11/24/17 05:37 Monocytes % (Manual) 4 % (4-9) 11/24/17 05:37 Plt Morphology Comment Normal (NORMAL) 11/24/17 05:37 RBC Morphology Normal (NORMAL) 11/24/17 05:37 Sample Site [facility] 11/25/17 05:42 ABG pH 7.360 (7.35-7.45) 11/25/17 05:42 ABG pCO2 75.0 mmHg (35.0-45.0) H* 11/25/17 05:42 ABG pO2 67.0 mmHg (80.0-100.0) L 11/25/17 05:42 ABG HCO3 42.4 mmol/L (22-26) H* 11/25/17 05:42 ABG O2 Saturation 92.0 % (90-100) 11/25/17 05:42 ABG Base Excess 13.7 mmol/L (-2.0-2.0) H 11/25/17 05:42 Colin Test Na 11/25/17 05:42 A-a Gradient 89.0 mmHg 11/25/17 05:42 FiO2 35.000 11/25/17 05:42 Blood Gas Comments Sally abg well-mtf 11/25/17 05:42 Sodium 140 mmol/L (136-145) 11/25/17 05:35 Corrected Sodium TNP 11/25/17 05:35 Potassium 4.7 mmol/L (3.5-5.1) 11/25/17 05:35 Chloride 103 mmol/L (98-107) 11/25/17 05:35 Carbon Dioxide 34.3 mmol/L (21-32) H 11/25/17 05:35 BUN 25 mg/dL (7-18) H 11/25/17 05:35 Creatinine 0.82 mg/dL (0.70-1.30) 11/25/17 05:35 Est GFR (MDRD) Af Amer > 60 (>60) 11/25/17 05:35 Est GFR (MDRD) Non-Af > 60 (>60) 11/25/17 05:35 Glucose 95 mg/dL (65-99) 11/25/17 05:35 Calcium 8.2 mg/dL (8.5-10.1) L 11/25/17 05:35 Corrected Calcium 9.2 mg/dL (8.5-10.1) 11/25/17 05:35 Total Bilirubin 0.80 mg/dL (0.2-1.0) 11/25/17 05:35 AST 28 Units/L (15-37) 11/25/17 05:35 ALT 43 Units/L (12-78) 11/25/17 05:35 Alkaline Phosphatase 51 Units/L (46-116) 11/25/17 05:35 Total Protein 6.9 g/dL (6.4-8.2) 11/25/17 05:35 Albumin 2.7 g/dL (3.4-5.0) L 11/25/17 05:35 Globulin 4.2 g/dL (2.5-4.5) 11/25/17 05:35 Albumin/Globulin Ratio 0.6 Ratio (1.1-2.1) L 11/25/17 05:35 Specimen Type Catherized urine 11/23/17 13:37 Urine Color Yellow (YELLOW) 11/23/17 13:37 Urine Appearance Cloudy (CLEAR) 11/23/17 13:37 Urine pH 5.0 (5.0 - 8.0) 11/23/17 13:37 Ur Specific [place] 1.025 (1.000-1.030) 11/23/17 13:37 Urine Protein 2+ (NEGATIVE) 11/23/17 13:37 Urine Glucose (UA) Negative (NEGATIVE) 11/23/17 13:37 Urine Ketones Negative (NEGATIVE) 11/23/17 13:37 Urine Occult Blood 5+ (NEGATIVE) 11/23/17 13:37 Urine Nitrite Negative (NEGATIVE) 11/23/17 13:37 Urine Bilirubin Negative (NEGATIVE) 11/23/17 13:37 Urine Urobilinogen Normal (NORMAL) 11/23/17 13:37 Ur Leukocyte Esterase 1+ (NEGATIVE) 11/23/17 13:37 Urine RBC 3+ /HPF (NONE SEEN) 11/23/17 13:37 Urine WBC 2+ /HPF (NONE SEEN) 11/23/17 13:37 Ur Squamous Epith Cells Few /HPF (NEGATIVE) 11/23/17 13:37 Urine Bacteria Trace /HPF (NEGATIVE) 11/23/17 13:37 Hyaline Casts Moderate /LPF (NEGATIVE) 11/23/17 02:24 Urine Mucus Few /HPF (NEGATIVE) 11/23/17 02:24 Urine Yeast Few /HPF (NEGATIVE) 11/23/17 13:37 Ur Culture Indicated? Yes/culture set up 11/23/17 13:37 Theophylline 8.1 ug/mL (10-20) L 11/25/17 12:25 - Plan (1) Pneumonia Status: Acute Qualifiers: Pneumonia type: due to other aerobic Gram-negative bacteria Laterality: bilateral Lung location: lower lobe of lung Qualified Code(s): J15.6 - Pneumonia due to other Gram-negative bacteria Plan: CONTINUE ROCEPHIN, CONTINUE RESPIRATORY TREATMENTS, CONTINUE SUPPLEMETAL OXYGEN, CONTINUE TO MONITOR (2) COPD with acute exacerbation Status: Acute Plan: CONTINUE RESPIRATORY TREATMENTS, CONTINUE SUPPLEMETAL OXYGEN, CONTINUE TO MONITOR (3) Respiratory failure with hypercapnia Status: Acute Qualifiers: Chronicity: acute Qualified Code(s): J96.02 - Acute respiratory failure with hypercapnia Plan: CONTINUE ROCEPHIN, CONTINUE RESPIRATORY TREATMENTS, CONTINUE SUPPLEMETAL OXYGEN, CONTINUE TO MONITOR (4) Cellulitis Status: Acute Qualifiers: Site of cellulitis: extremity Site of cellulitis of extremity: lower extremity Laterality: left Qualified Code(s): L03.116 - Cellulitis of left lower limb Plan: ROCEPHIN 1GM IV DAILY, CONTINUE TO MONITOR (5) Shortness of breath Status: Acute Plan: CONTINUE SUPPLEMENTAL OXYGEN, OBTAIN ECHO AND CHEST CT, CONTINUE TO MONITOR (6) Urinary tract infection Status: Acute Qualifiers: Urinary tract infection type: acute cystitis Hematuria presence: without hematuria Qualified Code(s): N30.00 - Acute cystitis without hematuria Plan: CONTINUE ROCEPHIN 1GM IV DAILY, CONTINUE TO MONITOR
[2017-11-25 16:59] VITALS: BMI 19.5
[2017-11-26] MEDS: DUONEB 0.5 MG/3 MG NEB SCH ×5 (01:02→20:46)
[2017-11-26] MEDS: D5W 1000 ML IV 1,000 ML IV SCH ×3 (04:30→17:25)
[2017-11-26 05:10] LABS: ABG BASE EXCESS 16.4 mmol/L (-2.0-2.0)
[2017-11-26 05:11] LABS: ABG HCO3 44.4 mmol/L (22-26)
[2017-11-26 06:19] LABS: BASOPHILS % (AUTO) 0.4 % (0.2-1.0); EOSINOPHILS % (AUTO) 0.3 % (0.9-2.9); HEMATOCRIT 43.3 % (42.0-54.0); LYMPHOCYTES # (AUTO) 0.4 X10^3/uL (1.3-2.9); MEAN CORPUSCULAR HEMOGLOBIN 26.7 pg (27.0-34.0); MEAN CORPUSCULAR HGB CONC 32.4 g/dL (33.0-35.0); MEAN CORPUSCULAR VOLUME 82.7 fL (80.0-100.0); MEAN PLATELET VOLUME 8.4 fL (7.4-11.0); MONOCYTES # (AUTO) 0.8 x10^3/uL (0.3-0.8); MONOCYTES % (AUTO) 9.7 % (0.0-13.0); NEUTROPHILS # (AUTO) 6.7 x10^3/uL (2.2-4.8); NEUTROPHILS % (AUTO) 84.6 % (42.0-75.0); PLATELET COUNT 135 X10^3/uL (150.0-450.0); RED BLOOD COUNT 5.24 X10^6/uL (4.7-6.0); RED CELL DISTRIBUTION WIDTH 16.9 % (11.6-16.5); WHITE BLOOD COUNT 7.9 X10^3/uL (3.6-10.0)
[2017-11-26 06:36] LABS: ALANINE AMINOTRANSFERASE 33 Units/L (12-78); ALBUMIN 2.4 g/dL (3.4-5.0); ALKALINE PHOSPHATASE 48 Units/L (46-116); ASPARTATE AMINO TRANSFERASE 23 Units/L (15-37); BLOOD UREA NITROGEN 18 mg/dL (7-18); CALCIUM 8.2 mg/dL (8.5-10.1); CHLORIDE 98 mmol/L (98-107); COR CA(FOR HYPOALB) 9.5 mg/dL (8.5-10.1); COR NA(FOR HYPERGLY) 136 mmol/L (136-145); CREATININE 0.88 mg/dL (0.70-1.30); SODIUM 136 mmol/L (136-145); TOTAL PROTEIN 6.3 g/dL (6.4-8.2); eGFR BLACK RACES > 60 (>60); eGFR NON BLACK RACES > 60 (>60)
--- NOTE | 2017-11-26 07:15 | RAD ---
AP chest. Indication: Shortness of breath Comparison: 11/25/2017. Findings: There is increasing patchy consolidation within the right lower lob e consistent with a right lower lobe pneumonia. Small right-sided pleural effusion. Chronic interstit ial lung changes are noted bilaterally. No left-sided pleural effusion or pneumothorax. Heart size un changed. No pneumothorax. No acute osseous abnormality. Impression: Increasing patchy consolidation within the right lower lobe is most consistent with an ac violeta pneumonia with a small right-sided parapneumonic effusion. Reported By:
[2017-11-26] MEDS: AMINOPHYLLINE IV PRN ×2 (07:50→15:30)
[2017-11-26] MEDS: D5W IV PRN ×2 (07:50→15:30)
[2017-11-26] MEDS ORDERED: NS 100 ML IV 100 ML IV ONE (08:48)
[2017-11-26] MEDS: ZESTRIL TAB 5 MG PO SCH (08:55)
[2017-11-26] MEDS: COLACE CAP 100 MG PO SCH ×2 (08:55→20:58)
[2017-11-26] MEDS: NORCO 5/325 MG TAB PO PRN (08:55)
[2017-11-26] MEDS: PEPCID TAB 20 MG PO SCH ×2 (08:55→20:58)
[2017-11-26] MEDS: ASPIRIN EC 81 MG PO SCH (08:55)
[2017-11-26] MEDS: NORVASC TAB 5 MG PO SCH (08:55)
[2017-11-26] MEDS: ROCEPHIN VIAL 1 GM 1 GM in NS 100 ML IV + SPIKE MINIBAG* 100 ML IV SCH (08:56)
[2017-11-26] MEDS: PROTONIX INJ 40 MG VIAL IVP SCH ×2 (08:56→20:59)
[2017-11-26] MEDS: MILK OF MAGNESIA PO SCH ×2 (10:05→21:05)
--- NOTE | 2017-11-26 15:37 | CT ---
HISTORY: Shortness of breath, pneumonia, COPD, and ARDS. Study: CT chest with contrast Comparison: CT chest dated November 19, 2017 and chest x-ray dated same day. Technique: Multiple axial images of the chest were obtained from the thoracic inlet to the upper abdo men after the administration of IV contrast. MIP images were obtained. Dose reduction techniques incl uding Automated Exposure Control (AEC) and adjustment of mA and kV were utilized. Findings: The mediastinum does not demonstrate significant pathological lymphadenopathy. There is no paracardi al effusion observed. The thoracic aorta is normal in its contour without evidence for aneurysmal di latation. The central pulmonary arterial system does not demonstrate central filling defects to sugg est pulmonary emboli. Coronary artery and thoracic aorta calcifications. Enlarged main and bilateral pulmonary arteries likely representing pulmonary hypertension. Moderate centrilobular and paraseptal emphysematous changes. Right lower lobe focal consolidation wit h associated small pleural effusion. Small left pleural effusion with associated compressive atelecta sis versus early infiltrate. Patchy airspace disease is also seen within the right middle lobe. No lomeli spicious pulmonary nodule, mass, or pneumothorax. The visualized upper abdominal structures are unrem arkable. Degenerative changes of the spine. No aggressive osseous lesions. IMPRESSION: 1. Constellation of findings likely representing multifocal pneumonia. 2. No CT evidence to suggest pulmonary embolus. 3. Other chronic findings as above. Reported By:
--- NOTE | 2017-11-26 20:45 | PCM.PROG ---
Progress Note - Progress Note for Day of Date: 11/23/17 - Subjective Subjective: IS BEING TREATED FOR LLE CELLULITIS, PEUMONIA, COPD EXACERBATION, AND A URINARY TRACT INFECTION. TODAY, HE IS LYING IN BED WITH EYES CLOSED ON MORNING ROUNDS. PATIENT CONTINUES TO BE DIFFICULT TO AROUSE THIS MORNING. HE IS CURRENTLY UTILIZING THE BIPAP. ON EXAMINATION, HEART IS REGULAR IN RATE AND RHYTHM. BIALTERAL LUNGS ARE CONTINUE WITH SCATTERED WHEEZING AND RHONCHI THROUGHOUT. ABDOMEN IS ROUND, SOFT, AND NON-TENDER WITH NORMAL BOWEL SOUNDS NOTED IN ALL QUADRANTS. LEFT LOWER EXTREMITY CONTINUES WITH EDEMA AND WARMTH NOTED TO SITE, HOWEVER, THIS HAS DECREASED SINCE YESTERDAY. STAFF REPORTS THAT PATIENT HAS BEEN DROWSY AND DIFFICULT TO AROUSE SINCE YESTERDAY. HIS VITALS THIS MORNING ARE 97.7-76-27-98%-128/84. OXYGEN SATURATIONS CONTINUE TO RUN IN THE LOW 90S ON OXYGEN. LABS WERE OBTAINED. ABNORMAL LAB VALUES INCLUDE THE FOLLOWING: POTASSIUM 6.0, CARBON DIOXIDE 33.7, BUN 32, GLUCOSE 126, TOTAL PROTEIN 8.4, ALBUMIN 3.2, GLOBULIN 5.2. AN ABG WAS OBTAINED AND REVEALED PH 7.340, PC02 65, P02 89, HC03 35.1, BASE EXCESS 7.3. PATIENT WAS CATHETERIZED THROUGHOUT THE NIGHT DUE TO SHORNTESS OF BREATH AND TO OBTAIN ACCURATE OUTPUT. A URINALYSIS WAS OBTAINED AND HAS IMPROVED SINCE URINALYSIS ON ADMISSION. A CHEST XRAY WAS OBTAINED AND REPORTED WORSENING OPACIFICATION OF THE RIGHT LUNG BASE CONSISTENT WITH PERSISTENT BRONCHOPNEUMONIA. TODAY, WE WILL PLACE PATIENT ON THE BIPAP. OTHERWISE, WE WILL CONTINUE WITH IV ANTIBIOTICS AND RESPIRATORY TREATMENTS. WE PLAN TO FOLLOW UP WITH AM LABS AND CONTINUE TO MONITOR PATIENT. - Past Medical Family Social History Past Med/Fam/Surg Hx: No changes since H&P Allergies: Allergies No Known Drug Allergies Allergy (Verified 11/18/17 13:50) - Review of Systems ROS: No change since H&P - Vital Signs and I&O's Vital Signs: Temperature 98.6 F Pulse Rate [Left Brachial] 82 Pulse Rate [Bilateral Radial] 77 Pulse Rate 76 Respiratory Rate 20 Blood Pressure [Right Arm] 102/76 Blood Pressure [Left Arm] 97/58 Blood Pressure 128/79 O2 Sat by Pulse Oximetry 90 Intake and Output: Intake & Output 03/05/18 11/25/17 11/26/17 11/27/17 11:59 11:59 11:59 11:59 Intake Total 1087 1159 1272 660 Output Total 1000 1350 3400 2200 Balance 38 -745 -0054 -2409 - Physical Exam Oriented: Other (DROWSY ) Eyes: Normal Ear: Normal Nose: Normal Throat: Normal Respiratory: Right, Left, Generalized, Wheezes, Rhonchi Cardiovascular: Normal : Normal Auscultation: Bowel Sounds: Normal Palpation: Normal Tenderness: Normal Skin: Tender, Hot Musculoskeletal: Left, Leg, Swelling, Tender Psychiatric: Normal Mood Description: Calm Affect: Normal Speech Pattern: Clear, Appropriate - Laboratory and Diagnostics Result Diagrams: 11/26/17 05:45 11/26/17 05:45 Labs: 11/23/17 13:37 Urine,Catheterized Urine Culture - Final 11/18/17 13:10 Blood Blood Culture - Final 11/18/17 13:16 Blood Blood Culture - Final 11/18/17 14:45 Urine,Clean Catch Urine Culture - Final Escherichia Coli 11/18/17 14:35 Sputum - Expectorated Sputum Sputum Culture - Final Enterobacter Cloacae 11/18/17 14:35 Sputum - Expectorated Sputum - Final Laboratory WBC 7.9 X10^3/uL (3.6-10.0) 11/26/17 05:45 RBC 5.24 X10^6/uL (4.7-6.0) 11/26/17 05:45 Hgb 14.0 g/dL (13.5-18.0) 11/26/17 05:45 Hct 43.3 % (42.0-54.0) 11/26/17 05:45 MCV 82.7 fL (80.0-100.0) 11/26/17 05:45 MCH 26.7 pg (27.0-34.0) L 11/26/17 05:45 MCHC 32.4 g/dL (33.0-35.0) L 11/26/17 05:45 RDW 16.9 % (11.6-16.5) H 11/26/17 05:45 Plt Count 135 X10^3/uL (150.0-450.0) L 11/26/17 05:45 Plt Count Comment Adequate (ADEQUATE) 11/24/17 05:37 MPV 8.4 fL (7.4-11.0) 11/26/17 05:45 Neut % 84.6 % (42.0-75.0) H 11/26/17 05:45 Lymph % 5.0 % (21.0-51.0) L 11/26/17 05:45 Randall % 9.7 % (0.0-13.0) 11/26/17 05:45 Eos % 0.3 % (0.9-2.9) L 11/26/17 05:45 Baso % 0.4 % (0.2-1.0) 11/26/17 05:45 Neut # 6.7 x10^3/uL (2.2-4.8) H 11/26/17 05:45 Lymph # 0.4 X10^3/uL (1.3-2.9) L 11/26/17 05:45 Randall # 0.8 x10^3/uL (0.3-0.8) 11/26/17 05:45 Eos # 0.0 x10^3/uL (0.0-0.2) 11/26/17 05:45 Baso # 0.0 X10^3/uL (0.0-0.1) 11/26/17 05:45 Absolute Nucleated RBC 0.1 /100WBC 11/26/17 05:45 Total Counted 100 11/24/17 05:37 Neutrophils % (Manual) 80 % (39-76) H 11/24/17 05:37 Band Neutrophils % 4 % (0-10) 11/24/17 05:37 Lymphocytes % (Manual) 12 % (13-43) L 11/24/17 05:37 Monocytes % (Manual) 4 % (4-9) 11/24/17 05:37 Plt Morphology Comment Normal (NORMAL) 11/24/17 05:37 RBC Morphology Normal (NORMAL) 11/24/17 05:37 Sample Site Lbra 11/26/17 04:55 ABG pH 7.410 (7.35-7.45) 11/26/17 04:55 ABG pCO2 70.0 mmHg (35.0-45.0) H* 11/26/17 04:55 ABG pO2 63.0 mmHg (80.0-100.0) L 11/26/17 04:55 ABG HCO3 44.4 mmol/L (22-26) H* 11/26/17 04:55 ABG O2 Saturation 92.0 % (90-100) 11/26/17 04:55 ABG Base Excess 16.4 mmol/L (-2.0-2.0) H 11/26/17 04:55 Colin Test Na 11/26/17 04:55 A-a Gradient 78.0 mmHg 11/26/17 04:55 FiO2 32.000 11/26/17 04:55 Blood Gas Comments Sally abg well-mtf 11/26/17 04:55 Sodium 136 mmol/L (136-145) 11/26/17 05:45 Corrected Sodium 136 mmol/L (136-145) 11/26/17 05:45 Potassium 4.6 mmol/L (3.5-5.1) 11/26/17 05:45 Chloride 98 mmol/L (98-107) 11/26/17 05:45 Carbon Dioxide 37.0 mmol/L (21-32) H 11/26/17 05:45 BUN 18 mg/dL (7-18) 11/26/17 05:45 Creatinine 0.88 mg/dL (0.70-1.30) 11/26/17 05:45 Est GFR (MDRD) Af Amer > 60 (>60) 11/26/17 05:45 Est GFR (MDRD) Non-Af > 60 (>60) 11/26/17 05:45 Glucose 117 mg/dL (65-99) H 11/26/17 05:45 Calcium 8.2 mg/dL (8.5-10.1) L 11/26/17 05:45 Corrected Calcium 9.5 mg/dL (8.5-10.1) 11/26/17 05:45 Total Bilirubin 1.10 mg/dL (0.2-1.0) H 11/26/17 05:45 AST 23 Units/L (15-37) 11/26/17 05:45 ALT 33 Units/L (12-78) 11/26/17 05:45 Alkaline Phosphatase 48 Units/L (46-116) 11/26/17 05:45 Total Protein 6.3 g/dL (6.4-8.2) L 11/26/17 05:45 Albumin 2.4 g/dL (3.4-5.0) L 11/26/17 05:45 Globulin 3.9 g/dL (2.5-4.5) 11/26/17 05:45 Albumin/Globulin Ratio 0.6 Ratio (1.1-2.1) L 11/26/17 05:45 Specimen Type Catherized urine 11/23/17 13:37 Urine Color Yellow (YELLOW) 11/23/17 13:37 Urine Appearance Cloudy (CLEAR) 11/23/17 13:37 Urine pH 5.0 (5.0 - 8.0) 11/23/17 13:37 Ur Specific [place] 1.025 (1.000-1.030) 11/23/17 13:37 Urine Protein 2+ (NEGATIVE) 11/23/17 13:37 Urine Glucose (UA) Negative (NEGATIVE) 11/23/17 13:37 Urine Ketones Negative (NEGATIVE) 11/23/17 13:37 Urine Occult Blood 5+ (NEGATIVE) 11/23/17 13:37 Urine Nitrite Negative (NEGATIVE) 11/23/17 13:37 Urine Bilirubin Negative (NEGATIVE) 11/23/17 13:37 Urine Urobilinogen Normal (NORMAL) 11/23/17 13:37 Ur Leukocyte Esterase 1+ (NEGATIVE) 11/23/17 13:37 Urine RBC 3+ /HPF (NONE SEEN) 11/23/17 13:37 Urine WBC 2+ /HPF (NONE SEEN) 11/23/17 13:37 Ur Squamous Epith Cells Few /HPF (NEGATIVE) 11/23/17 13:37 Urine Bacteria Trace /HPF (NEGATIVE) 11/23/17 13:37 Hyaline Casts Moderate /LPF (NEGATIVE) 11/23/17 02:24 Urine Mucus Few /HPF (NEGATIVE) 11/23/17 02:24 Urine Yeast Few /HPF (NEGATIVE) 11/23/17 13:37 Ur Culture Indicated? Yes/culture set up 11/23/17 13:37 Theophylline 8.8 ug/mL (10-20) L 11/26/17 14:06 - Plan (1) Pneumonia Status: Acute Qualifiers: Pneumonia type: due to other aerobic Gram-negative bacteria Laterality: bilateral Lung location: lower lobe of lung Qualified Code(s): J15.6 - Pneumonia due to other Gram-negative bacteria Plan: CONTINUE ROCEPHIN, CONTINUE RESPIRATORY TREATMENTS, CONTINUE SUPPLEMETAL OXYGEN, CONTINUE TO MONITOR (2) COPD with acute exacerbation Status: Acute Plan: CONTINUE RESPIRATORY TREATMENTS, CONTINUE SUPPLEMETAL OXYGEN, CONTINUE TO MONITOR (3) Respiratory failure with hypercapnia Status: Acute Qualifiers: Chronicity: acute Qualified Code(s): J96.02 - Acute respiratory failure with hypercapnia Plan: BIPAP, CONTINUE ROCEPHIN, CONTINUE RESPIRATORY TREATMENTS, CONTINUE SUPPLEMETAL OXYGEN, CONTINUE TO MONITOR (4) Cellulitis Status: Acute Qualifiers: Site of cellulitis: extremity Site of cellulitis of extremity: lower extremity Laterality: left Qualified Code(s): L03.116 - Cellulitis of left lower limb Plan: ROCEPHIN 1GM IV DAILY, CONTINUE TO MONITOR (5) Shortness of breath Status: Acute Plan: PLACE ON BIPAP, CONTINUE TO MONITOR (6) Urinary tract infection Status: Acute Qualifiers: Urinary tract infection type: acute cystitis Hematuria presence: without hematuria Qualified Code(s): N30.00 - Acute cystitis without hematuria Plan: CONTINUE ROCEPHIN 1GM IV DAILY, CONTINUE TO MONITOR
--- NOTE | 2017-11-26 21:39 | PCM.PROG ---
Progress Note - Progress Note for Day of Date: 11/24/17 - Subjective Subjective: IS BEING TREATED FOR LLE CELLULITIS, PEUMONIA, COPD EXACERBATION, AND A URINARY TRACT INFECTION. TODAY, HE IS LYING IN BED WITH EYES CLOSED ON MORNING ROUNDS. PATIENT AWAKENS TO VERBAL STIMULI, BUT QUICKLY FALLS BACK TO SLEEP. HE CONTINUES TO UTILIZE THE BIPAP. PATIENTS SON IS AT BEDSIDE. ON EXAMINATION, HEART IS REGULAR IN RATE AND RHYTHM. BIALTERAL LUNGS CONTINUE WITH SCATTERED WHEEZING AND RHONCHI THROUGHOUT. ABDOMEN IS ROUND, SOFT , AND NON-TENDER WITH NORMAL BOWEL SOUNDS NOTED IN ALL QUADRANTS. LEFT LOWER EXTREMITY CONTINUES WITH EDEMA AND WARMTH NOTED TO SITE, HOWEVER, IT CONTINUES TO IMPROVE. STAFF REPORTS THAT PATIENT HAS BEEN COMBATIVE AND CONFUSED AT TIMES. THEY REPORT HAVING A DIFFICULT TIME GETTING PATIENT TO LEAVE BIPAP MASK ON. PATIENT WAS PLACED IN SOFT WRIST RESTRAINTS DUE TO PULLING AT IV LINES AND MONTENEGRO CATHETER. HIS VITALS THIS MORNING ARE 97.8-56-19-100%-112/72. LABS WERE OBTAINED. ABNORMAL LAB VALUES INCLUDE THE FOLLOWING: PLT COUNT 147, POTASSIUM 5.7, BUN 33, GLUCOSE 144, CALCIUM 8.4, ALBUMIN 2.8. AN ABG WAS OBTAINED AND REVEALED PH 7.270, PC02 87.0, P02 72, HC03 40, BASE EXCESS 9.8. A CHEST XRAY WAS OBTAINED AND REPORTED IMPROVING FLUID STATUS, CLEARING INFILTRATION RIGHT BASE. WE DISCUSSED PATIENTS CONDITION WITH HIS SON. PATIENTS SON WISHES THAT ALL MEASURES EXCEPT CPR BE TAKEN SHOULD PATIENTS RESPIRATORY STATUS WORSEN. WE WILL CONTINUE WITH IV ANTIBIOTICS AND RESPIRATORY TREATMENTS TODAY. WE PLAN TO FOLLOW UP WITH AM LABS AND CONTINUE TO MONITOR PATIENT. - Past Medical Family Social History Past Med/Fam/Surg Hx: No changes since H&P Allergies: Allergies No Known Drug Allergies Allergy (Verified 11/18/17 13:50) - Review of Systems ROS: No change since H&P - Vital Signs and I&O's Vital Signs: Temperature 98.6 F Pulse Rate [Left Brachial] 82 Pulse Rate [Bilateral Radial] 77 Pulse Rate 103 Respiratory Rate 20 Blood Pressure [Right Arm] 102/76 Blood Pressure [Left Arm] 97/58 Blood Pressure 128/79 O2 Sat by Pulse Oximetry 95 Intake and Output: Intake & Output 11/24/17 11/25/17 11/26/17 11/27/17 11:59 11:59 11:59 11:59 Intake Total 1087 1159 1272 660 Output Total 1000 1350 3400 2200 Balance 03 -113 -0042 -2554 - Physical Exam Oriented: Other (DROWSY ) Eyes: Normal Ear: Normal Nose: Normal Throat: Normal Respiratory: Right, Left, Generalized, Wheezes, Rhonchi Cardiovascular: Normal : Normal Auscultation: Bowel Sounds: Normal Palpation: Normal Tenderness: Normal Skin: Tender, Hot Musculoskeletal: Left, Leg, Swelling, Tender Psychiatric: Normal Mood Description: Calm Affect: Normal Speech Pattern: Clear, Appropriate - Laboratory and Diagnostics Result Diagrams: 11/26/17 05:45 11/26/17 05:45 Labs: 11/23/17 13:37 Urine,Catheterized Urine Culture - Final 11/18/17 13:10 Blood Blood Culture - Final 11/18/17 13:16 Blood Blood Culture - Final 11/18/17 14:45 Urine,Clean Catch Urine Culture - Final Escherichia Coli 11/18/17 14:35 Sputum - Expectorated Sputum Sputum Culture - Final Enterobacter Cloacae 11/18/17 14:35 Sputum - Expectorated Sputum - Final Laboratory WBC 7.9 X10^3/uL (3.6-10.0) 11/26/17 05:45 RBC 5.24 X10^6/uL (4.7-6.0) 11/26/17 05:45 Hgb 14.0 g/dL (13.5-18.0) 11/26/17 05:45 Hct 43.3 % (42.0-54.0) 11/26/17 05:45 MCV 82.7 fL (80.0-100.0) 11/26/17 05:45 MCH 26.7 pg (27.0-34.0) L 11/26/17 05:45 MCHC 32.4 g/dL (33.0-35.0) L 11/26/17 05:45 RDW 16.9 % (11.6-16.5) H 11/26/17 05:45 Plt Count 135 X10^3/uL (150.0-450.0) L 11/26/17 05:45 Plt Count Comment Adequate (ADEQUATE) 11/24/17 05:37 MPV 8.4 fL (7.4-11.0) 11/26/17 05:45 Neut % 84.6 % (42.0-75.0) H 11/26/17 05:45 Lymph % 5.0 % (21.0-51.0) L 11/26/17 05:45 Sullivan % 9.7 % (0.0-13.0) 11/26/17 05:45 Eos % 0.3 % (0.9-2.9) L 11/26/17 05:45 Baso % 0.4 % (0.2-1.0) 11/26/17 05:45 Neut # 6.7 x10^3/uL (2.2-4.8) H 11/26/17 05:45 Lymph # 0.4 X10^3/uL (1.3-2.9) L 11/26/17 05:45 Sullivan # 0.8 x10^3/uL (0.3-0.8) 11/26/17 05:45 Eos # 0.0 x10^3/uL (0.0-0.2) 11/26/17 05:45 Baso # 0.0 X10^3/uL (0.0-0.1) 11/26/17 05:45 Absolute Nucleated RBC 0.1 /100WBC 11/26/17 05:45 Total Counted 100 11/24/17 05:37 Neutrophils % (Manual) 80 % (39-76) H 11/24/17 05:37 Band Neutrophils % 4 % (0-10) 11/24/17 05:37 Lymphocytes % (Manual) 12 % (13-43) L 11/24/17 05:37 Monocytes % (Manual) 4 % (4-9) 11/24/17 05:37 Plt Morphology Comment Normal (NORMAL) 11/24/17 05:37 RBC Morphology Normal (NORMAL) 11/24/17 05:37 Sample Site Lbra 11/26/17 04:55 ABG pH 7.410 (7.35-7.45) 11/26/17 04:55 ABG pCO2 70.0 mmHg (35.0-45.0) H* 11/26/17 04:55 ABG pO2 63.0 mmHg (80.0-100.0) L 11/26/17 04:55 ABG HCO3 44.4 mmol/L (22-26) H* 11/26/17 04:55 ABG O2 Saturation 92.0 % (90-100) 11/26/17 04:55 ABG Base Excess 16.4 mmol/L (-2.0-2.0) H 11/26/17 04:55 Colin Test Na 11/26/17 04:55 A-a Gradient 78.0 mmHg 11/26/17 04:55 FiO2 32.000 11/26/17 04:55 Blood Gas Comments Sally abg well-mtf 11/26/17 04:55 Sodium 136 mmol/L (136-145) 11/26/17 05:45 Corrected Sodium 136 mmol/L (136-145) 11/26/17 05:45 Potassium 4.6 mmol/L (3.5-5.1) 11/26/17 05:45 Chloride 98 mmol/L (98-107) 11/26/17 05:45 Carbon Dioxide 37.0 mmol/L (21-32) H 11/26/17 05:45 BUN 18 mg/dL (7-18) 11/26/17 05:45 Creatinine 0.88 mg/dL (0.70-1.30) 11/26/17 05:45 Est GFR (MDRD) Af Amer > 60 (>60) 11/26/17 05:45 Est GFR (MDRD) Non-Af > 60 (>60) 11/26/17 05:45 Glucose 117 mg/dL (65-99) H 11/26/17 05:45 Calcium 8.2 mg/dL (8.5-10.1) L 11/26/17 05:45 Corrected Calcium 9.5 mg/dL (8.5-10.1) 11/26/17 05:45 Total Bilirubin 1.10 mg/dL (0.2-1.0) H 11/26/17 05:45 AST 23 Units/L (15-37) 11/26/17 05:45 ALT 33 Units/L (12-78) 11/26/17 05:45 Alkaline Phosphatase 48 Units/L (46-116) 11/26/17 05:45 Total Protein 6.3 g/dL (6.4-8.2) L 11/26/17 05:45 Albumin 2.4 g/dL (3.4-5.0) L 11/26/17 05:45 Globulin 3.9 g/dL (2.5-4.5) 11/26/17 05:45 Albumin/Globulin Ratio 0.6 Ratio (1.1-2.1) L 11/26/17 05:45 Specimen Type Catherized urine 11/23/17 13:37 Urine Color Yellow (YELLOW) 11/23/17 13:37 Urine Appearance Cloudy (CLEAR) 11/23/17 13:37 Urine pH 5.0 (5.0 - 8.0) 11/23/17 13:37 Ur Specific [place] 1.025 (1.000-1.030) 11/23/17 13:37 Urine Protein 2+ (NEGATIVE) 11/23/17 13:37 Urine Glucose (UA) Negative (NEGATIVE) 11/23/17 13:37 Urine Ketones Negative (NEGATIVE) 11/23/17 13:37 Urine Occult Blood 5+ (NEGATIVE) 11/23/17 13:37 Urine Nitrite Negative (NEGATIVE) 11/23/17 13:37 Urine Bilirubin Negative (NEGATIVE) 11/23/17 13:37 Urine Urobilinogen Normal (NORMAL) 11/23/17 13:37 Ur Leukocyte Esterase 1+ (NEGATIVE) 11/23/17 13:37 Urine RBC 3+ /HPF (NONE SEEN) 11/23/17 13:37 Urine WBC 2+ /HPF (NONE SEEN) 11/23/17 13:37 Ur Squamous Epith Cells Few /HPF (NEGATIVE) 11/23/17 13:37 Urine Bacteria Trace /HPF (NEGATIVE) 11/23/17 13:37 Hyaline Casts Moderate /LPF (NEGATIVE) 11/23/17 02:24 Urine Mucus Few /HPF (NEGATIVE) 11/23/17 02:24 Urine Yeast Few /HPF (NEGATIVE) 11/23/17 13:37 Ur Culture Indicated? Yes/culture set up 11/23/17 13:37 Theophylline 8.8 ug/mL (10-20) L 11/26/17 14:06 - Plan (1) Pneumonia Status: Acute Qualifiers: Pneumonia type: due to other aerobic Gram-negative bacteria Laterality: bilateral Lung location: lower lobe of lung Qualified Code(s): J15.6 - Pneumonia due to other Gram-negative bacteria Plan: CONTINUE ROCEPHIN, CONTINUE RESPIRATORY TREATMENTS, CONTINUE SUPPLEMETAL OXYGEN, CONTINUE TO MONITOR (2) COPD with acute exacerbation Status: Acute Plan: CONTINUE RESPIRATORY TREATMENTS, CONTINUE SUPPLEMETAL OXYGEN, CONTINUE TO MONITOR (3) Respiratory failure with hypercapnia Status: Acute Qualifiers: Chronicity: acute Qualified Code(s): J96.02 - Acute respiratory failure with hypercapnia Plan: BIPAP, CONTINUE ROCEPHIN, CONTINUE RESPIRATORY TREATMENTS, CONTINUE SUPPLEMETAL OXYGEN, CONTINUE TO MONITOR (4) Cellulitis Status: Acute Qualifiers: Site of cellulitis: extremity Site of cellulitis of extremity: lower extremity Laterality: left Qualified Code(s): L03.116 - Cellulitis of left lower limb Plan: ROCEPHIN 1GM IV DAILY, CONTINUE TO MONITOR (5) Shortness of breath Status: Acute Plan: BIPAP, CONTINUE TO MONITOR (6) Urinary tract infection Status: Acute Qualifiers: Urinary tract infection type: acute cystitis Hematuria presence: without hematuria Qualified Code(s): N30.00 - Acute cystitis without hematuria Plan: CONTINUE ROCEPHIN 1GM IV DAILY, CONTINUE TO MONITOR
[2017-11-27] MEDS: DUONEB 0.5 MG/3 MG NEB SCH ×6 (00:47→20:25)
[2017-11-27] MEDS: D5W 1000 ML IV 1,000 ML IV SCH ×3 (01:46→18:13)
[2017-11-27 06:13] LABS: BASOPHILS % (AUTO) 0.1 % (0.2-1.0); EOSINOPHILS # (AUTO) 0.1 x10^3/uL (0.0-0.2); EOSINOPHILS % (AUTO) 1.2 % (0.9-2.9); HEMATOCRIT 42.6 % (42.0-54.0); HEMOGLOBIN 13.8 g/dL (13.5-18.0); LYMPHOCYTES # (AUTO) 0.3 X10^3/uL (1.3-2.9); MEAN CORPUSCULAR HGB CONC 32.3 g/dL (33.0-35.0); MEAN CORPUSCULAR VOLUME 83.4 fL (80.0-100.0); MEAN PLATELET VOLUME 8.7 fL (7.4-11.0); MONOCYTES # (AUTO) 0.9 x10^3/uL (0.3-0.8); MONOCYTES % (AUTO) 9.3 % (0.0-13.0); NEUTROPHILS # (AUTO) 8.3 x10^3/uL (2.2-4.8); NEUTROPHILS % (AUTO) 86.4 % (42.0-75.0); PLATELET COUNT 120 X10^3/uL (150.0-450.0); RED BLOOD COUNT 5.11 X10^6/uL (4.7-6.0); RED CELL DISTRIBUTION WIDTH 16.7 % (11.6-16.5); WHITE BLOOD COUNT 9.6 X10^3/uL (3.6-10.0)
[2017-11-27 06:18] LABS: ALANINE AMINOTRANSFERASE 25 Units/L (12-78); ALKALINE PHOSPHATASE 49 Units/L (46-116); ASPARTATE AMINO TRANSFERASE 19 Units/L (15-37); BLOOD UREA NITROGEN 14 mg/dL (7-18); CALCIUM 7.8 mg/dL (8.5-10.1); CARBON DIOXIDE 37.5 mmol/L (21-32); CHLORIDE 98 mmol/L (98-107); COR CA(FOR HYPOALB) 9.4 mg/dL (8.5-10.1); CREATININE 0.86 mg/dL (0.70-1.30); SODIUM 137 mmol/L (136-145); TOTAL PROTEIN 5.9 g/dL (6.4-8.2); eGFR BLACK RACES > 60 (>60); eGFR NON BLACK RACES > 60 (>60)
[2017-11-27 06:50] LABS: ABG BASE EXCESS 16.6 mmol/L (-2.0-2.0)
[2017-11-27 06:51] LABS: ABG HCO3 43.4 mmol/L (22-26)
--- NOTE | 2017-11-27 07:03 | RAD ---
HISTORY: Shortness of breath Study: Chest AP portable Comparison: 11/26/2017 chest x-ray and chest CT Findings: The heart is within normal limits in size. The juan are normal. The lungs are well inflated. Increasi ng infiltrate is present in the right lower lobe most consistent with pneumonia. The remainder of the lung gonzalez appear free of acute infiltrates. No pleural effusions are identified. The bony thorax i s unremarkable. IMPRESSION: Increasing right lower lobe infiltrate Reported By:
[2017-11-27] MEDS ORDERED: D5 LR 1000 ML 1,000 ML IV ONE (08:06)
[2017-11-27] MEDS: NORVASC TAB 5 MG PO SCH (09:46)
[2017-11-27] MEDS: ZESTRIL TAB 5 MG PO SCH (10:05)
[2017-11-27] MEDS: ASPIRIN EC 81 MG PO SCH (10:06)
[2017-11-27] MEDS: PEPCID TAB 20 MG PO SCH ×2 (10:06→20:47)
[2017-11-27] MEDS: MILK OF MAGNESIA PO SCH ×2 (10:06→20:47)
[2017-11-27] MEDS: PROTONIX INJ 40 MG VIAL IVP SCH ×2 (10:06→20:47)
[2017-11-27] MEDS: COLACE CAP 100 MG PO SCH ×2 (10:06→20:47)
[2017-11-27] MEDS: AMINOPHYLLINE IV PRN (11:00)
[2017-11-27] MEDS: D5W IV PRN (11:00)
[2017-11-28] MEDS: D5W 1000 ML IV 1,000 ML IV SCH ×3 (01:29→12:04)
[2017-11-28] MEDS: DUONEB 0.5 MG/3 MG NEB SCH ×6 (01:45→20:27)
[2017-11-28 04:05] LABS: ABG ALLEN TEST POS
[2017-11-28 06:12] LABS: BASOPHILS % (AUTO) 0.2 % (0.2-1.0); EOSINOPHILS # (AUTO) 0.2 x10^3/uL (0.0-0.2); EOSINOPHILS % (AUTO) 2.7 % (0.9-2.9); HEMATOCRIT 41.8 % (42.0-54.0); HEMOGLOBIN 13.5 g/dL (13.5-18.0); LYMPHOCYTES # (AUTO) 0.3 X10^3/uL (1.3-2.9); LYMPHOCYTES % (AUTO) 3.5 % (21.0-51.0); MEAN CORPUSCULAR HEMOGLOBIN 26.9 pg (27.0-34.0); MEAN CORPUSCULAR HGB CONC 32.4 g/dL (33.0-35.0); MEAN PLATELET VOLUME 8.6 fL (7.4-11.0); MONOCYTES # (AUTO) 0.9 x10^3/uL (0.3-0.8); NEUTROPHILS # (AUTO) 6.4 x10^3/uL (2.2-4.8); NEUTROPHILS % (AUTO) 81.6 % (42.0-75.0); PLATELET COUNT 144 X10^3/uL (150.0-450.0); RED BLOOD COUNT 5.04 X10^6/uL (4.7-6.0); RED CELL DISTRIBUTION WIDTH 16.6 % (11.6-16.5); WHITE BLOOD COUNT 7.9 X10^3/uL (3.6-10.0)
[2017-11-28 06:21] LABS: ALANINE AMINOTRANSFERASE 32 Units/L (12-78); ALBUMIN 2.3 g/dL (3.4-5.0); ALKALINE PHOSPHATASE 53 Units/L (46-116); ASPARTATE AMINO TRANSFERASE 29 Units/L (15-37); BLOOD UREA NITROGEN 9 mg/dL (7-18); CALCIUM 8.2 mg/dL (8.5-10.1); CARBON DIOXIDE 34.7 mmol/L (21-32); CHLORIDE 98 mmol/L (98-107); COR CA(FOR HYPOALB) 9.6 mg/dL (8.5-10.1); COR NA(FOR HYPERGLY) 135 mmol/L (136-145); CREATININE 0.83 mg/dL (0.70-1.30); SODIUM 135 mmol/L (136-145); TOTAL PROTEIN 6.3 g/dL (6.4-8.2); eGFR BLACK RACES > 60 (>60); eGFR NON BLACK RACES > 60 (>60)
--- NOTE | 2017-11-28 06:45 | RAD ---
Examination: AP chest History: SOB Comparison 11/27/2017 Findings: Continued normal heart size. Minimal infiltrate unchanged left base. Improving aeration of the right lower lung with persistent infiltrate. No new abnormality. Impression: Improving right lower lung infiltrate with no new abnormality identified since 1 day annamaria sen Reported By:
[2017-11-28] MEDS ORDERED: ROCEPHIN 1 GM IV PREMIX 1 GM/50 ML IV.SOLN. IV ONE (08:41)
[2017-11-28] MEDS: MILK OF MAGNESIA PO SCH ×2 (08:52→20:42)
[2017-11-28] MEDS: PROTONIX INJ 40 MG VIAL IVP SCH ×2 (08:52→20:43)
[2017-11-28] MEDS: ASPIRIN EC 81 MG PO SCH (08:53)
[2017-11-28] MEDS: ROCEPHIN VIAL 1 GM 1 GM in NS 100 ML IV 100 ML IV SCH (08:53)
[2017-11-28] MEDS: NORVASC TAB 5 MG PO SCH (08:54)
[2017-11-28] MEDS: ZESTRIL TAB 5 MG PO SCH (08:54)
[2017-11-28] MEDS: THEO-DUR TAB 200 MG PO SCH ×2 (08:54→20:43)
[2017-11-28] MEDS: COLACE CAP 100 MG PO SCH ×2 (08:54→20:42)
[2017-11-28] MEDS: PEPCID TAB 20 MG PO SCH ×2 (08:54→20:42)
--- NOTE | 2017-11-28 11:22 | PCM.PROG ---
Progress Note - Progress Note for Day of Date: 11/25/17 - Subjective Subjective: IS BEING TREATED FOR LLE CELLULITIS, PEUMONIA, COPD EXACERBATION, AND A URINARY TRACT INFECTION. TODAY, HE IS LYING IN BED WITH EYES OPEN ON MORNING ROUNDS. HE IS MORE ALERT TODAY THAN HE HAS BEEN. HE RESPONDS TO VERBAL COMMANDS APPROPRIATELY. STAFF REPORTS THAT ALTERED MENTAL STATUS HAS IMPROVED. PATIENT IS NOTED WITH COMPLAINTS OF SHORTNESS OF BREATH. HE CONTINUES TO UTILIZE THE BIPAP. ON EXAMINATION, HEART IS REGULAR IN RATE AND RHYTHM. BIALTERAL LUNGS CONTINUE WITH SCATTERED WHEEZING AND RHONCHI THROUGHOUT. ABDOMEN IS ROUND, SOFT, AND NON-TENDER WITH NORMAL BOWEL SOUNDS NOTED IN ALL QUADRANTS. A MONTENEGRO CATHETER IS NOTED TO BEDSIDE DRAINAGE. HIS VITALS THIS MORNING ARE 97.7-77-26-99% bipap-142/85. LABS WERE OBTAINED. ABNORMAL LAB VALUES INCLUDE THE FOLLOWING: CARBON DIOXIDE 34.3, BUN 25, CALCIUM 8.2, ALBUMIN 2.7. AN ABG WAS OBTAINED AND REVEALED PH 7.360, PC02 75, PC02 67, HC03 42.4, BASE EXCESS 13.7. A CHEST XRAY WAS OBTAINED AND REPORTED MILD CARDIOMEGALY WITHOUT CHF. SUBSEGMENTAL ATELECTASIS RIGHT LUNG BASE. TODAY, WE WILL START AN AMINOPHYLLINE DRIP PER PROTOCOL. OTHERWISE, WE WILL CONTINUE WITH IV ANTIBIOTICS AND RESPIRATORY TREATMENTS TODAY. WE PLAN TO FOLLOW UP WITH AM LABS AND CONTINUE TO MONITOR PATIENT. - Past Medical Family Social History Past Med/Fam/Surg Hx: No changes since H&P Allergies: Allergies No Known Drug Allergies Allergy (Verified 11/18/17 13:50) - Review of Systems ROS: No change since H&P - Vital Signs and I&O's Vital Signs: Temperature 99.4 F Pulse Rate [Left Brachial] 113 Pulse Rate [Bilateral Radial] 77 Pulse Rate 80 Respiratory Rate 44 Blood Pressure [Right Arm] 102/76 Blood Pressure [Left Arm] 91/50 Blood Pressure 128/79 O2 Sat by Pulse Oximetry 95 Intake and Output: Intake & Output 11/25/17 11/26/17 11/27/17 11/28/17 11:59 11:59 11:59 11:59 Intake Total 1159 1272 1740 1853 Output Total 1350 3400 2750 3300 Balance -605 -0862 -0964 -1405 - Physical Exam Oriented: Normal Eyes: Normal Ear: Normal Nose: Normal Throat: Normal Respiratory: Right, Left, Generalized, Wheezes, Rhonchi Cardiovascular: Normal : Normal Auscultation: Bowel Sounds: Normal Palpation: Normal Tenderness: Normal Skin: Tender, Hot Musculoskeletal: Left, Leg, Swelling, Tender Psychiatric: Normal Mood Description: Calm Affect: Normal Speech Pattern: Clear, Appropriate - Laboratory and Diagnostics Result Diagrams: 11/28/17 05:45 11/28/17 05:45 Labs: 11/28/17 03:35 Sputum - Expectorated Sputum - Final 11/23/17 13:37 Urine,Catheterized Urine Culture - Final 11/18/17 13:10 Blood Blood Culture - Final 11/18/17 13:16 Blood Blood Culture - Final 11/18/17 14:45 Urine,Clean Catch Urine Culture - Final Escherichia Coli 11/18/17 14:35 Sputum - Expectorated Sputum Sputum Culture - Final Enterobacter Cloacae 11/18/17 14:35 Sputum - Expectorated Sputum - Final Laboratory WBC 7.9 X10^3/uL (3.6-10.0) 11/28/17 05:45 RBC 5.04 X10^6/uL (4.7-6.0) 11/28/17 05:45 Hgb 13.5 g/dL (13.5-18.0) 11/28/17 05:45 Hct 41.8 % (42.0-54.0) L 11/28/17 05:45 MCV 83.0 fL (80.0-100.0) 11/28/17 05:45 MCH 26.9 pg (27.0-34.0) L 11/28/17 05:45 MCHC 32.4 g/dL (33.0-35.0) L 11/28/17 05:45 RDW 16.6 % (11.6-16.5) H 11/28/17 05:45 Plt Count 144 X10^3/uL (150.0-450.0) L 11/28/17 05:45 Plt Count Comment Adequate (ADEQUATE) 11/24/17 05:37 MPV 8.6 fL (7.4-11.0) 11/28/17 05:45 Neut % 81.6 % (42.0-75.0) H 11/28/17 05:45 Lymph % 3.5 % (21.0-51.0) L 11/28/17 05:45 [place] % 12.0 % (0.0-13.0) 11/28/17 05:45 Eos % 2.7 % (0.9-2.9) 11/28/17 05:45 Baso % 0.2 % (0.2-1.0) 11/28/17 05:45 Neut # 6.4 x10^3/uL (2.2-4.8) H 11/28/17 05:45 Lymph # 0.3 X10^3/uL (1.3-2.9) L 11/28/17 05:45 [place] # 0.9 x10^3/uL (0.3-0.8) H 11/28/17 05:45 Eos # 0.2 x10^3/uL (0.0-0.2) 11/28/17 05:45 Baso # 0.0 X10^3/uL (0.0-0.1) 11/28/17 05:45 Absolute Nucleated RBC 0.0 /100WBC 11/28/17 05:45 Total Counted 100 11/24/17 05:37 Neutrophils % (Manual) 80 % (39-76) H 11/24/17 05:37 Band Neutrophils % 4 % (0-10) 11/24/17 05:37 Lymphocytes % (Manual) 12 % (13-43) L 11/24/17 05:37 Monocytes % (Manual) 4 % (4-9) 11/24/17 05:37 Plt Morphology Comment Normal (NORMAL) 11/24/17 05:37 RBC Morphology Normal (NORMAL) 11/24/17 05:37 Sample Site Rrad 11/28/17 03:46 ABG pH 7.470 (7.35-7.45) H 11/28/17 03:46 ABG pCO2 55.0 mmHg (35.0-45.0) H* 11/28/17 03:46 ABG pO2 51.0 mmHg (80.0-100.0) L 11/28/17 03:46 ABG HCO3 40.0 mmol/L (22-26) H* 11/28/17 03:46 ABG O2 Saturation 88.0 % (90-100) L 11/28/17 03:46 ABG Base Excess 14.0 mmol/L (-2.0-2.0) H 11/28/17 03:46 Colin Test Pos 11/28/17 03:46 A-a Gradient 272.0 mmHg 11/28/17 03:46 FiO2 55.000 11/28/17 03:46 Blood Gas Comments Sally abg well-mtf 11/28/17 03:46 Sodium 135 mmol/L (136-145) L 11/28/17 05:45 Corrected Sodium 135 mmol/L (136-145) L 11/28/17 05:45 Potassium 3.8 mmol/L (3.5-5.1) 11/28/17 05:45 Chloride 98 mmol/L (98-107) 11/28/17 05:45 Carbon Dioxide 34.7 mmol/L (21-32) H 11/28/17 05:45 BUN 9 mg/dL (7-18) 11/28/17 05:45 Creatinine 0.83 mg/dL (0.70-1.30) 11/28/17 05:45 Est GFR (MDRD) Af Amer > 60 (>60) 11/28/17 05:45 Est GFR (MDRD) Non-Af > 60 (>60) 11/28/17 05:45 Glucose 119 mg/dL (65-99) H 11/28/17 05:45 Calcium 8.2 mg/dL (8.5-10.1) L 11/28/17 05:45 Corrected Calcium 9.6 mg/dL (8.5-10.1) 11/28/17 05:45 Total Bilirubin 1.00 mg/dL (0.2-1.0) 11/28/17 05:45 AST 29 Units/L (15-37) 11/28/17 05:45 ALT 32 Units/L (12-78) 11/28/17 05:45 Alkaline Phosphatase 53 Units/L (46-116) 11/28/17 05:45 Total Protein 6.3 g/dL (6.4-8.2) L 11/28/17 05:45 Albumin 2.3 g/dL (3.4-5.0) L 11/28/17 05:45 Globulin 4.0 g/dL (2.5-4.5) 11/28/17 05:45 Albumin/Globulin Ratio 0.6 Ratio (1.1-2.1) L 11/28/17 05:45 Specimen Type Catherized urine 11/23/17 13:37 Urine Color Yellow (YELLOW) 11/23/17 13:37 Urine Appearance Cloudy (CLEAR) 11/23/17 13:37 Urine pH 5.0 (5.0 - 8.0) 11/23/17 13:37 Ur Specific [place] 1.025 (1.000-1.030) 11/23/17 13:37 Urine Protein 2+ (NEGATIVE) 11/23/17 13:37 Urine Glucose (UA) Negative (NEGATIVE) 11/23/17 13:37 Urine Ketones Negative (NEGATIVE) 11/23/17 13:37 Urine Occult Blood 5+ (NEGATIVE) 11/23/17 13:37 Urine Nitrite Negative (NEGATIVE) 11/23/17 13:37 Urine Bilirubin Negative (NEGATIVE) 11/23/17 13:37 Urine Urobilinogen Normal (NORMAL) 11/23/17 13:37 Ur Leukocyte Esterase 1+ (NEGATIVE) 11/23/17 13:37 Urine RBC 3+ /HPF (NONE SEEN) 11/23/17 13:37 Urine WBC 2+ /HPF (NONE SEEN) 11/23/17 13:37 Ur Squamous Epith Cells Few /HPF (NEGATIVE) 11/23/17 13:37 Urine Bacteria Trace /HPF (NEGATIVE) 11/23/17 13:37 Hyaline Casts Moderate /LPF (NEGATIVE) 11/23/17 02:24 Urine Mucus Few /HPF (NEGATIVE) 11/23/17 02:24 Urine Yeast Few /HPF (NEGATIVE) 11/23/17 13:37 Ur Culture Indicated? Yes/culture set up 11/23/17 13:37 Theophylline 18.8 ug/mL (10-20) 11/28/17 09:15 - Plan (1) Pneumonia Status: Acute Qualifiers: Pneumonia type: due to other aerobic Gram-negative bacteria Laterality: bilateral Lung location: lower lobe of lung Qualified Code(s): J15.6 - Pneumonia due to other Gram-negative bacteria Plan: CONTINUE ROCEPHIN, CONTINUE RESPIRATORY TREATMENTS, CONTINUE SUPPLEMETAL OXYGEN, CONTINUE TO MONITOR (2) COPD with acute exacerbation Status: Acute Plan: AMINOPHYLLINE DRIP, CONTINUE RESPIRATORY TREATMENTS, CONTINUE SUPPLEMETAL OXYGEN, CONTINUE TO MONITOR (3) Respiratory failure with hypercapnia Status: Acute Qualifiers: Chronicity: acute Qualified Code(s): J96.02 - Acute respiratory failure with hypercapnia Plan: AMINOPHYLLINE DRIP, BIPAP, CONTINUE ROCEPHIN, CONTINUE RESPIRATORY TREATMENTS, CONTINUE SUPPLEMETAL OXYGEN, CONTINUE TO MONITOR (4) Cellulitis Status: Acute Qualifiers: Site of cellulitis: extremity Site of cellulitis of extremity: lower extremity Laterality: left Qualified Code(s): L03.116 - Cellulitis of left lower limb Plan: ROCEPHIN 1GM IV DAILY, CONTINUE TO MONITOR (5) Shortness of breath Status: Acute Plan: BIPAP, CONTINUE TO MONITOR (6) Urinary tract infection Status: Acute Qualifiers: Urinary tract infection type: acute cystitis Hematuria presence: without hematuria Qualified Code(s): N30.00 - Acute cystitis without hematuria Plan: CONTINUE ROCEPHIN 1GM IV DAILY, CONTINUE TO MONITOR
[2017-11-29] MEDS: DUONEB 0.5 MG/3 MG NEB SCH ×6 (00:56→20:25)
[2017-11-29] MEDS: D5W 1000 ML IV 1,000 ML IV SCH ×2 (01:00→21:08)
[2017-11-29] MEDS ORDERED: DULCOLAX SUPPOSITORY 10 MG RECTAL ONE (04:46)
[2017-11-29 06:10] LABS: BASOPHILS % (AUTO) 0.2 % (0.2-1.0); EOSINOPHILS # (AUTO) 0.4 x10^3/uL (0.0-0.2); EOSINOPHILS % (AUTO) 5.3 % (0.9-2.9); HEMATOCRIT 44.1 % (42.0-54.0); HEMOGLOBIN 14.4 g/dL (13.5-18.0); LYMPHOCYTES # (AUTO) 0.6 X10^3/uL (1.3-2.9); LYMPHOCYTES % (AUTO) 6.8 % (21.0-51.0); MEAN CORPUSCULAR HEMOGLOBIN 27.2 pg (27.0-34.0); MEAN CORPUSCULAR HGB CONC 32.7 g/dL (33.0-35.0); MEAN PLATELET VOLUME 8.6 fL (7.4-11.0); MONOCYTES # (AUTO) 1.3 x10^3/uL (0.3-0.8); NEUTROPHILS # (AUTO) 5.8 x10^3/uL (2.2-4.8); NEUTROPHILS % (AUTO) 71.7 % (42.0-75.0); PLATELET COUNT 176 X10^3/uL (150.0-450.0); RED BLOOD COUNT 5.32 X10^6/uL (4.7-6.0); RED CELL DISTRIBUTION WIDTH 16.7 % (11.6-16.5); WHITE BLOOD COUNT 8.1 X10^3/uL (3.6-10.0)
[2017-11-29 06:24] LABS: ALANINE AMINOTRANSFERASE 45 Units/L (12-78); ALBUMIN 2.7 g/dL (3.4-5.0); ALKALINE PHOSPHATASE 67 Units/L (46-116); ASPARTATE AMINO TRANSFERASE 39 Units/L (15-37); BLOOD UREA NITROGEN 9 mg/dL (7-18); CALCIUM 8.6 mg/dL (8.5-10.1); CARBON DIOXIDE 30.8 mmol/L (21-32); CHLORIDE 99 mmol/L (98-107); COR CA(FOR HYPOALB) 9.6 mg/dL (8.5-10.1); CREATININE 0.96 mg/dL (0.70-1.30); SODIUM 135 mmol/L (136-145); TOTAL PROTEIN 7.2 g/dL (6.4-8.2); eGFR BLACK RACES > 60 (>60); eGFR NON BLACK RACES > 60 (>60)
[2017-11-29] MEDS: THEO-DUR TAB 200 MG PO SCH ×2 (09:00→21:07)
[2017-11-29] MEDS: PROTONIX INJ 40 MG VIAL IVP SCH ×2 (09:15→21:07)
[2017-11-29] MEDS: ROCEPHIN VIAL 1 GM 1 GM in NS 100 ML IV 100 ML IV SCH (09:15)
[2017-11-29] MEDS: NORVASC TAB 5 MG PO SCH (09:17)
[2017-11-29] MEDS: ASPIRIN EC 81 MG PO SCH (09:17)
[2017-11-29] MEDS: ZESTRIL TAB 5 MG PO SCH (09:17)
[2017-11-29] MEDS: PEPCID TAB 20 MG PO SCH ×2 (09:18→21:06)
[2017-11-29] MEDS: MILK OF MAGNESIA PO SCH ×2 (10:32→21:07)
[2017-11-29] MEDS: COLACE CAP 100 MG PO SCH ×2 (10:32→21:06)
[2017-11-30] MEDS: DUONEB 0.5 MG/3 MG NEB SCH ×6 (00:45→20:39)
[2017-11-30] MEDS: D5W 1000 ML IV 1,000 ML IV SCH (03:00)
[2017-11-30 06:09] LABS: BASOPHILS % (AUTO) 0.3 % (0.2-1.0); EOSINOPHILS # (AUTO) 0.2 x10^3/uL (0.0-0.2); EOSINOPHILS % (AUTO) 3.1 % (0.9-2.9); HEMATOCRIT 42.3 % (42.0-54.0); HEMOGLOBIN 13.8 g/dL (13.5-18.0); LYMPHOCYTES # (AUTO) 0.5 X10^3/uL (1.3-2.9); LYMPHOCYTES % (AUTO) 7.2 % (21.0-51.0); MEAN CORPUSCULAR HEMOGLOBIN 27.2 pg (27.0-34.0); MEAN CORPUSCULAR HGB CONC 32.7 g/dL (33.0-35.0); MEAN CORPUSCULAR VOLUME 83.3 fL (80.0-100.0); MEAN PLATELET VOLUME 8.5 fL (7.4-11.0); MONOCYTES # (AUTO) 1.6 x10^3/uL (0.3-0.8); MONOCYTES % (AUTO) 21.2 % (0.0-13.0); NEUTROPHILS # (AUTO) 5.1 x10^3/uL (2.2-4.8); NEUTROPHILS % (AUTO) 68.2 % (42.0-75.0); PLATELET COUNT 178 X10^3/uL (150.0-450.0); RED BLOOD COUNT 5.08 X10^6/uL (4.7-6.0); WHITE BLOOD COUNT 7.5 X10^3/uL (3.6-10.0)
[2017-11-30 06:22] LABS: ALANINE AMINOTRANSFERASE 41 Units/L (12-78); ALBUMIN 2.4 g/dL (3.4-5.0); ALKALINE PHOSPHATASE 60 Units/L (46-116); ASPARTATE AMINO TRANSFERASE 32 Units/L (15-37); BLOOD UREA NITROGEN 12 mg/dL (7-18); CALCIUM 8.3 mg/dL (8.5-10.1); CARBON DIOXIDE 33.7 mmol/L (21-32); CHLORIDE 98 mmol/L (98-107); COR CA(FOR HYPOALB) 9.6 mg/dL (8.5-10.1); COR NA(FOR HYPERGLY) 134 mmol/L (136-145); CREATININE 0.87 mg/dL (0.70-1.30); SODIUM 134 mmol/L (136-145); TOTAL PROTEIN 6.6 g/dL (6.4-8.2); eGFR BLACK RACES > 60 (>60); eGFR NON BLACK RACES > 60 (>60)
--- NOTE | 2017-11-30 07:23 | RAD ---
HISTORY: Shortness of breath. Lower extremity edema, pain, cellulitis. Study: Single-view chest, done portably Comparison: 11/28/2017. Findings: Cardiac monitoring electrodes are noted on the chest. There is hyper expansion of the left lung with evidence of volume loss in the right lung base. [id number] mediastinal shift is appreciated with e levation of the right hemidiaphragm. Even with these changes, there is improvement in atelectasis or infiltrate in the right lower lobe region. Increased interstitial markings are present bilaterally, f avoring COPD. There is cardiomegaly with aortic uncoiling. No pneumothorax is seen. Osseous structure s are intact. IMPRESSION: COPD with improving atelectasis or infiltrate in the right lower lobe. Hypertensive configuration. Reported By:
[2017-11-30 07:35] LABS: ANISOCYTOSIS 1+; PLATELET MORPHOLOGY COMMENT NORMAL (NORMAL)
[2017-11-30] MEDS: PROTONIX INJ 40 MG VIAL IVP SCH ×2 (08:28→21:00)
[2017-11-30] MEDS: ROCEPHIN VIAL 1 GM 1 GM in NS 100 ML IV 100 ML IV SCH (08:29)
[2017-11-30] MEDS: ZESTRIL TAB 5 MG PO SCH (08:29)
[2017-11-30] MEDS: PEPCID TAB 20 MG PO SCH ×2 (08:29→21:00)
[2017-11-30] MEDS: THEO-DUR TAB 200 MG PO SCH ×2 (08:29→21:00)
[2017-11-30] MEDS: NORVASC TAB 5 MG PO SCH (08:29)
[2017-11-30] MEDS: ASPIRIN EC 81 MG PO SCH (08:29)
[2017-11-30] MEDS: COLACE CAP 100 MG PO SCH ×2 (08:30→21:00)
[2017-11-30] MEDS: MILK OF MAGNESIA PO SCH ×2 (08:30→21:00)
[2017-11-30] MEDS: D5 1/2 NS 1000 ML 1,000 ML IV SCH (21:00)
[2017-12-01] MEDS: DUONEB 0.5 MG/3 MG NEB SCH ×6 (01:22→21:28)
[2017-12-01 05:19] LABS: BASOPHILS # (AUTO) 0.1 X10^3/uL (0.0-0.1); BASOPHILS % (AUTO) 0.7 % (0.2-1.0); EOSINOPHILS # (AUTO) 0.2 x10^3/uL (0.0-0.2); EOSINOPHILS % (AUTO) 2.7 % (0.9-2.9); HEMATOCRIT 40.8 % (42.0-54.0); HEMOGLOBIN 13.2 g/dL (13.5-18.0); LYMPHOCYTES # (AUTO) 0.6 X10^3/uL (1.3-2.9); LYMPHOCYTES % (AUTO) 7.2 % (21.0-51.0); MEAN CORPUSCULAR HEMOGLOBIN 26.9 pg (27.0-34.0); MEAN CORPUSCULAR HGB CONC 32.5 g/dL (33.0-35.0); MEAN CORPUSCULAR VOLUME 82.9 fL (80.0-100.0); MEAN PLATELET VOLUME 8.6 fL (7.4-11.0); MONOCYTES # (AUTO) 1.9 x10^3/uL (0.3-0.8); NEUTROPHILS % (AUTO) 68.4 % (42.0-75.0); PLATELET COUNT 193 X10^3/uL (150.0-450.0); RED BLOOD COUNT 4.92 X10^6/uL (4.7-6.0); RED CELL DISTRIBUTION WIDTH 16.3 % (11.6-16.5); WHITE BLOOD COUNT 8.8 X10^3/uL (3.6-10.0)
[2017-12-01 05:25] LABS: ALANINE AMINOTRANSFERASE 42 Units/L (12-78); ALBUMIN 2.3 g/dL (3.4-5.0); ALKALINE PHOSPHATASE 57 Units/L (46-116); ASPARTATE AMINO TRANSFERASE 33 Units/L (15-37); BLOOD UREA NITROGEN 10 mg/dL (7-18); CARBON DIOXIDE 32.6 mmol/L (21-32); CHLORIDE 99 mmol/L (98-107); COR CA(FOR HYPOALB) 9.4 mg/dL (8.5-10.1); CREATININE 0.78 mg/dL (0.70-1.30); SODIUM 136 mmol/L (136-145); TOTAL PROTEIN 6.3 g/dL (6.4-8.2); eGFR BLACK RACES > 60 (>60); eGFR NON BLACK RACES > 60 (>60)
[2017-12-01 05:57] LABS: BAND NEUTROPHILS % 4 % (0-10); PLATELET MORPHOLOGY COMMENT NORMAL (NORMAL)
--- NOTE | 2017-12-01 06:40 | RAD ---
HISTORY: Shortness of breath Study: Chest AP portable Comparison: 11/28/2017, 11/30/2017 Findings: The heart is within normal limits in size. The juan are normal. The lungs are generally hyperinflated . A focus of abnormal parenchymal density in the right lung base likely represents some infiltrate an d volume loss not significantly changed from the prior examination. The remainder of the lung gonzalez are free of infiltrates. No pleural effusions are identified. The bony thorax is unremarkable. IMPRESSION: No change right basilar lung infiltrate with some associated volume loss Otherwise the lungs are generally hyperinflated Reported By:
[2017-12-01] MEDS: ROCEPHIN VIAL 1 GM 1 GM in NS 100 ML IV 100 ML IV SCH (08:38)
[2017-12-01] MEDS: ASPIRIN EC 81 MG PO SCH (08:39)
[2017-12-01] MEDS: NORVASC TAB 5 MG PO SCH (08:39)
[2017-12-01] MEDS: ZESTRIL TAB 5 MG PO SCH (08:39)
[2017-12-01] MEDS: PROTONIX INJ 40 MG VIAL IVP SCH ×2 (08:39→20:38)
[2017-12-01] MEDS: PEPCID TAB 20 MG PO SCH ×2 (08:39→20:38)
[2017-12-01] MEDS: THEO-DUR TAB 200 MG PO SCH ×2 (08:40→20:37)
[2017-12-01] MEDS: COLACE CAP 100 MG PO SCH ×2 (08:40→20:37)
[2017-12-01] MEDS: MILK OF MAGNESIA PO SCH ×2 (08:40→20:37)
[2017-12-01] MEDS ORDERED: MERREM PREMIX IV 500 MG 500 MG/50 ML BAG IV SCH (10:00)
[2017-12-01] MEDS: MERREM VIAL 500 MG in NS 100 ML IV + SPIKE MINIBAG* 100 ML IV SCH ×3 (13:00→21:55)
[2017-12-01] MEDS: D5 1/2 NS 1000 ML 1,000 ML IV SCH (13:25)
--- NOTE | 2017-12-01 19:59 | PCM.PROG ---
Progress Note - Progress Note for Day of Date: 12/01/17 - Subjective Subjective: IS BEING TREATED FOR LLE CELLULITIS, PEUMONIA, COPD EXACERBATION, AND A URINARY TRACT INFECTION. TODAY, HE IS LYING IN BED WITH EYES OPEN ON MORNING ROUNDS. STAFF REPORTS THAT PATIENT HAS BEEN SOMEWHAT CONFUSED THIS MORNING AND THROUGHOUT THE NIGHT. PATIENT CONTINUES WITH COMPLAINTS OF SHORTNESS OF BREATH, BUT REPORTS IMPROVEMENT SINCE ADMISSION. ON EXAMINATION, HEART IS REGULAR IN RATE AND RHYTHM. BIALTERAL LUNGS CONTINUE WITH SCATTERED WHEEZING AND RHONCHI THROUGHOUT. HE IS CURRENTLY UTILIZING OXYGEN VIA NASAL CANNULA AT 2L/MIN. ABDOMEN IS ROUND, SOFT, AND NON-TENDER WITH NORMAL BOWEL SOUNDS NOTED IN ALL QUADRANTS. HIS VITALS THIS MORNING ARE 98.7-97-27-97% nc-116/78. LABS WERE OBTAINED. ABNORMAL LAB VALUES INCLUDE THE FOLLOWING: HGB 13.2, HCT 40.8, CARBON DIOXIDE 32.6, CALCIUM 8.0, TOTAL PROTEIN 6.3, ALBUMIN 2.3. SPUTUM CULTURE THAT WAS OBTAINED ON 11/28/17 REPORTED GROWTH OF ACINETOBACTER BAUMANNI/HAEMOLY. A CHEST XRAY WAS OBTAINED AND REPORTED NO CHANGE IN RIGHT BASILAR BUNG INFILTRATE WITH SOME ASSOCIATED VOLUME LOSS. OTHERWISE THE LUNGS ARE GENERALLY HYPERINFLATED. PATIENT HAS BEEN ACCEPTED AT A [facility] IN [place], [place]. HIS ROOM WILL BE AVAILABLE TOMORROW. TODAY, WE WILL CHANGE IV ANTIBIOTICS TO MEROPENEM 500MG PO TID AND CONTINUE WITH RESPIRATORY TREATMENTS. OTHERWISE, WE PLAN TO FOLLOW UP WITH AM LABS AND CONTINUE TO MONITOR PATIENT. - Past Medical Family Social History Past Med/Fam/Surg Hx: No changes since H&P Allergies: Allergies No Known Drug Allergies Allergy (Verified 11/18/17 13:50) - Review of Systems ROS: No change since H&P - Vital Signs and I&O's Vital Signs: Temperature 98.5 F Pulse Rate [Left Brachial] 82 Pulse Rate [Bilateral Radial] 77 Pulse Rate 80 Respiratory Rate 20 Blood Pressure [Right Arm] 102/76 Blood Pressure [Left Arm] 101/67 Blood Pressure 128/79 O2 Sat by Pulse Oximetry 93 Intake and Output: Intake & Output 11/29/17 11/30/17 12/01/17 12/02/17 10:59 11:59 11:59 11:59 Intake Total 1524 480 Output Total 1900 500 Balance -376 -20 - Physical Exam Oriented: Normal Eyes: Normal Ear: Normal Nose: Normal Throat: Normal Respiratory: Right, Left, Generalized, Wheezes, Rhonchi Cardiovascular: Normal : Normal Auscultation: Bowel Sounds: Normal Palpation: Normal Tenderness: Normal Skin: Tender, Hot Musculoskeletal: Left, Leg, Swelling, Tender Psychiatric: Normal Mood Description: Calm Affect: Normal Speech Pattern: Clear, Appropriate - Laboratory and Diagnostics Result Diagrams: 12/01/17 04:48 12/01/17 04:48 Labs: 11/28/17 03:35 Sputum - Expectorated Sputum Sputum Culture - Final Acinetobacter Baumanii/Haemoly 11/28/17 03:35 Sputum - Expectorated Sputum - Final 11/23/17 13:37 Urine,Catheterized Urine Culture - Final 11/18/17 13:10 Blood Blood Culture - Final 11/18/17 13:16 Blood Blood Culture - Final 11/18/17 14:45 Urine,Clean Catch Urine Culture - Final Escherichia Coli 11/18/17 14:35 Sputum - Expectorated Sputum Sputum Culture - Final Enterobacter Cloacae 11/18/17 14:35 Sputum - Expectorated Sputum - Final Laboratory WBC 8.8 X10^3/uL (3.6-10.0) 12/01/17 04:48 RBC 4.92 X10^6/uL (4.7-6.0) 12/01/17 04:48 Hgb 13.2 g/dL (13.5-18.0) L 12/01/17 04:48 Hct 40.8 % (42.0-54.0) L 12/01/17 04:48 MCV 82.9 fL (80.0-100.0) 12/01/17 04:48 MCH 26.9 pg (27.0-34.0) L 12/01/17 04:48 MCHC 32.5 g/dL (33.0-35.0) L 12/01/17 04:48 RDW 16.3 % (11.6-16.5) 12/01/17 04:48 Plt Count 193 X10^3/uL (150.0-450.0) 12/01/17 04:48 Plt Count Comment Adequate (ADEQUATE) 12/01/17 04:48 MPV 8.6 fL (7.4-11.0) 12/01/17 04:48 Neut % 68.4 % (42.0-75.0) 12/01/17 04:48 Lymph % 7.2 % (21.0-51.0) L 12/01/17 04:48 [place] % 21.0 % (0.0-13.0) H 12/01/17 04:48 Eos % 2.7 % (0.9-2.9) 12/01/17 04:48 Baso % 0.7 % (0.2-1.0) 12/01/17 04:48 Neut # 6.0 x10^3/uL (2.2-4.8) H 12/01/17 04:48 Lymph # 0.6 X10^3/uL (1.3-2.9) L 12/01/17 04:48 [place] # 1.9 x10^3/uL (0.3-0.8) H 12/01/17 04:48 Eos # 0.2 x10^3/uL (0.0-0.2) 12/01/17 04:48 Baso # 0.1 X10^3/uL (0.0-0.1) 12/01/17 04:48 Absolute Nucleated RBC 0.0 /100WBC 12/01/17 04:48 Total Counted 100 12/01/17 04:48 Neutrophils % (Manual) 68 % (39-76) 12/01/17 04:48 Band Neutrophils % 4 % (0-10) 12/01/17 04:48 Lymphocytes % (Manual) 10 % (13-43) L 12/01/17 04:48 Monocytes % (Manual) 13 % (4-9) H 12/01/17 04:48 Eosinophils % (Manual) 5 % (0-6) 12/01/17 04:48 Plt Morphology Comment Normal (NORMAL) 12/01/17 04:48 RBC Morphology Normal (NORMAL) 12/01/17 04:48 Anisocytosis 1+ A 11/30/17 05:30 Sample Site Rrad 11/28/17 03:46 ABG pH 7.470 (7.35-7.45) H 11/28/17 03:46 ABG pCO2 55.0 mmHg (35.0-45.0) H* 11/28/17 03:46 ABG pO2 51.0 mmHg (80.0-100.0) L 11/28/17 03:46 ABG HCO3 40.0 mmol/L (22-26) H* 11/28/17 03:46 ABG O2 Saturation 88.0 % (90-100) L 11/28/17 03:46 ABG Base Excess 14.0 mmol/L (-2.0-2.0) H 11/28/17 03:46 Colin Test Pos 11/28/17 03:46 A-a Gradient 272.0 mmHg 11/28/17 03:46 FiO2 55.000 11/28/17 03:46 Blood Gas Comments Sally abg well-mtf 11/28/17 03:46 Sodium 136 mmol/L (136-145) 12/01/17 04:48 Corrected Sodium TNP 12/01/17 04:48 Potassium 3.9 mmol/L (3.5-5.1) 12/01/17 04:48 Chloride 99 mmol/L (98-107) 12/01/17 04:48 Carbon Dioxide 32.6 mmol/L (21-32) H 12/01/17 04:48 BUN 10 mg/dL (7-18) 12/01/17 04:48 Creatinine 0.78 mg/dL (0.70-1.30) 12/01/17 04:48 Est GFR (MDRD) Af Amer > 60 (>60) 12/01/17 04:48 Est GFR (MDRD) Non-Af > 60 (>60) 12/01/17 04:48 Glucose 96 mg/dL (65-99) 12/01/17 04:48 Calcium 8.0 mg/dL (8.5-10.1) L 12/01/17 04:48 Corrected Calcium 9.4 mg/dL (8.5-10.1) 12/01/17 04:48 Total Bilirubin 0.80 mg/dL (0.2-1.0) 12/01/17 04:48 AST 33 Units/L (15-37) 12/01/17 04:48 ALT 42 Units/L (12-78) 12/01/17 04:48 Alkaline Phosphatase 57 Units/L (46-116) 12/01/17 04:48 Total Protein 6.3 g/dL (6.4-8.2) L 12/01/17 04:48 Albumin 2.3 g/dL (3.4-5.0) L 12/01/17 04:48 Globulin 4.0 g/dL (2.5-4.5) 12/01/17 04:48 Albumin/Globulin Ratio 0.6 Ratio (1.1-2.1) L 12/01/17 04:48 Specimen Type Catherized urine 11/23/17 13:37 Urine Color Yellow (YELLOW) 11/23/17 13:37 Urine Appearance Cloudy (CLEAR) 11/23/17 13:37 Urine pH 5.0 (5.0 - 8.0) 11/23/17 13:37 Ur Specific [place] 1.025 (1.000-1.030) 11/23/17 13:37 Urine Protein 2+ (NEGATIVE) 11/23/17 13:37 Urine Glucose (UA) Negative (NEGATIVE) 11/23/17 13:37 Urine Ketones Negative (NEGATIVE) 11/23/17 13:37 Urine Occult Blood 5+ (NEGATIVE) 11/23/17 13:37 Urine Nitrite Negative (NEGATIVE) 11/23/17 13:37 Urine Bilirubin Negative (NEGATIVE) 11/23/17 13:37 Urine Urobilinogen Normal (NORMAL) 11/23/17 13:37 Ur Leukocyte Esterase 1+ (NEGATIVE) 11/23/17 13:37 Urine RBC 3+ /HPF (NONE SEEN) 11/23/17 13:37 Urine WBC 2+ /HPF (NONE SEEN) 11/23/17 13:37 Ur Squamous Epith Cells Few /HPF (NEGATIVE) 11/23/17 13:37 Urine Bacteria Trace /HPF (NEGATIVE) 11/23/17 13:37 Hyaline Casts Moderate /LPF (NEGATIVE) 11/23/17 02:24 Urine Mucus Few /HPF (NEGATIVE) 11/23/17 02:24 Urine Yeast Few /HPF (NEGATIVE) 11/23/17 13:37 Ur Culture Indicated? Yes/culture set up 11/23/17 13:37 Theophylline 18.8 ug/mL (10-20) 11/28/17 09:15 - Plan (1) Pneumonia Status: Acute Qualifiers: Pneumonia type: due to other aerobic Gram-negative bacteria Laterality: bilateral Lung location: lower lobe of lung Qualified Code(s): J15.6 - Pneumonia due to other Gram-negative bacteria Plan: MEROPENEM 500MG PO TID, CONTINUE RESPIRATORY TREATMENTS, CONTINUE SUPPLEMETAL OXYGEN, CONTINUE TO MONITOR (2) COPD with acute exacerbation Status: Acute Plan: CONTINUE JENSEN-DUR, CONTINUE RESPIRATORY TREATMENTS, CONTINUE SUPPLEMETAL OXYGEN, CONTINUE TO MONITOR (3) Respiratory failure with hypercapnia Status: Acute Qualifiers: Chronicity: acute Qualified Code(s): J96.02 - Acute respiratory failure with hypercapnia Plan: CONTINUE JENSEN-DUR, MEROPENEM 500MG IV TID, CONTINUE RESPIRATORY TREATMENTS , CONTINUE SUPPLEMETAL OXYGEN, CONTINUE TO MONITOR (4) Cellulitis Status: Acute Qualifiers: Site of cellulitis: extremity Site of cellulitis of extremity: lower extremity Laterality: left Qualified Code(s): L03.116 - Cellulitis of left lower limb Plan: ROCEPHIN 1GM IV DAILY, CONTINUE TO MONITOR (5) Shortness of breath Status: Acute Plan: SUPPLEMENTAL OXYGEN, CONTINUE TO MONITOR (6) Urinary tract infection Status: Acute Qualifiers: Urinary tract infection type: acute cystitis Hematuria presence: without hematuria Qualified Code(s): N30.00 - Acute cystitis without hematuria Plan: MEROPENEM 500MG PO TID, CONTINUE TO MONITOR
[2017-12-02] MEDS: DUONEB 0.5 MG/3 MG NEB SCH ×3 (00:52→08:54)
[2017-12-02] MEDS: MERREM VIAL 500 MG in NS 100 ML IV + SPIKE MINIBAG* 100 ML IV SCH (05:47)
[2017-12-02 06:09] LABS: BASOPHILS % (AUTO) 0.5 % (0.2-1.0); EOSINOPHILS # (AUTO) 0.2 x10^3/uL (0.0-0.2); EOSINOPHILS % (AUTO) 3.4 % (0.9-2.9); HEMATOCRIT 41.1 % (42.0-54.0); HEMOGLOBIN 13.4 g/dL (13.5-18.0); LYMPHOCYTES # (AUTO) 0.5 X10^3/uL (1.3-2.9); LYMPHOCYTES % (AUTO) 7.8 % (21.0-51.0); MEAN CORPUSCULAR HEMOGLOBIN 27.1 pg (27.0-34.0); MEAN CORPUSCULAR HGB CONC 32.5 g/dL (33.0-35.0); MEAN CORPUSCULAR VOLUME 83.2 fL (80.0-100.0); MONOCYTES # (AUTO) 1.3 x10^3/uL (0.3-0.8); MONOCYTES % (AUTO) 18.7 % (0.0-13.0); NEUTROPHILS # (AUTO) 4.9 x10^3/uL (2.2-4.8); NEUTROPHILS % (AUTO) 69.6 % (42.0-75.0); PLATELET COUNT 187 X10^3/uL (150.0-450.0); RED BLOOD COUNT 4.94 X10^6/uL (4.7-6.0); RED CELL DISTRIBUTION WIDTH 16.2 % (11.6-16.5)
[2017-12-02 06:24] LABS: ALANINE AMINOTRANSFERASE 43 Units/L (12-78); ALBUMIN 2.3 g/dL (3.4-5.0); ALKALINE PHOSPHATASE 57 Units/L (46-116); ASPARTATE AMINO TRANSFERASE 34 Units/L (15-37); BLOOD UREA NITROGEN 10 mg/dL (7-18); CALCIUM 8.1 mg/dL (8.5-10.1); CARBON DIOXIDE 34.3 mmol/L (21-32); CHLORIDE 100 mmol/L (98-107); COR CA(FOR HYPOALB) 9.5 mg/dL (8.5-10.1); CREATININE 0.82 mg/dL (0.70-1.30); SODIUM 137 mmol/L (136-145); TOTAL PROTEIN 6.5 g/dL (6.4-8.2); eGFR BLACK RACES > 60 (>60); eGFR NON BLACK RACES > 60 (>60)
[2017-12-02] MEDS: PROTONIX INJ 40 MG VIAL IVP SCH (08:58)
[2017-12-02] MEDS: COLACE CAP 100 MG PO SCH (08:58)
[2017-12-02] MEDS: ASPIRIN EC 81 MG PO SCH (08:58)
[2017-12-02] MEDS: ZESTRIL TAB 5 MG PO SCH (08:58)
[2017-12-02] MEDS: MILK OF MAGNESIA PO SCH (08:58)
[2017-12-02] MEDS: NORVASC TAB 5 MG PO SCH (08:58)
[2017-12-02] MEDS: THEO-DUR TAB 200 MG PO SCH (08:58)
[2017-12-02] MEDS: PEPCID TAB 20 MG PO SCH (08:58)
[2017-12-02 12:28] VITALS: BP 110/75
== END 2017-12-02 12:25 | DRG 177 ==
LOC: UNDOADMOB 10:57 → OBS 10:57 → OBSVTOIN 11-20 09:00 → ICU 11-20 10:10
PROVIDERS: ADMIT Internal Medicine; ATTEND Internal Medicine
DX: J15.6 Pneumonia due to other Gram-negative bacteria (principal); J44.1 Chronic obstructive pulmonary disease with (acute) exacerbation; N30.00 Acute cystitis without hematuria; J96.02 Acute respiratory failure with hypercapnia; L03.116 Cellulitis of left lower limb; R60.0 Localized edema; B96.29 Other Escherichia coli [E. coli] as the cause of diseases classified elsewhere; Z66 Do not resuscitate; M79.605 Pain in left leg; I10 Essential (primary) hypertension; R06.02 Shortness of breath; B96.89 Other specified bacterial agents as the cause of diseases classified elsewhere
CPT/HCPCS: 36415; 36600; 70450; 71045; 71260; 80053; 80198; 81001; 82803; 85025; 87040; 87070; 87077; 87086; 87088; 87186; 87205; 93306; 93970; 94640; 94660; 94760; 97535; A4216; A4222; A4618; A7030; C9113; G8987; G8988; S0028; G0378; J0280; J0696; J1940; J2185; J2920; J3360; J7042; J7120; J7620

== ENCOUNTER → 2018-01-08 | Outpatient (CLI) | payer OTHER, MEDICAID ==
[~2018-01-08] MED LIST: NS 100 ML IV 100 ML IV ONE
--- NOTE | 2018-01-08 09:47 | CT ---
HISTORY: Cough, shortness of breath, abnormal previous CT of the chest Study: CT chest with contrast Comparison: November 26, 2017 Technique: Multiple axial images of the chest were obtained from the thoracic inlet to the upper abdo men with the administration of IV contrast. Dose reduction techniques including automated exposure co ntrol ADC and adjustment of mA and kv were utilized. Findings: The mediastinum does not demonstrate significant pathological lymphadenopathy. There is no pericardi al effusion observed. Atherosclerotic changes are seen within the visualized coronary arteries and ao rta. Otherwise the thoracic aorta is normal in its contour without evidence for aneurysmal dilatation . Prominence of the main and bilateral pulmonary arteries is again demonstrated suggesting pulmonary hypertension. Emphysematous changes are seen throughout both lungs. The previously noted focal right lower lobe consolidation has improved however patchy ill-defined nodular opacities remain within bot h lungs predominantly in the lower lobes right greater than left. These findings may reflect residual infiltrate however clinical correlation and continued close interval follow-up is recommended for fu rther evaluation and to exclude underlying malignancy. Degenerative changes of visualized spine are n oted. IMPRESSION: Improved aeration of the right lower lobe with residual patchy ill-defined nodular opacities within b oth lungs as discussed above. Recommend clinical correlation and follow-up exam within 2-3 months unl ess clinically indicated sooner. Emphysematous changes. Other findings as noted above. Reported By:
== END | disposition home or self-care (01) ==
LOC: RAD 08:36
PROVIDERS: ATTEND Nurse Practitioner Family
DX: R93.8 Abnormal findings on diagnostic imaging of other specified body structures (principal); J44.9 Chronic obstructive pulmonary disease, unspecified; R05 Cough; R06.02 Shortness of breath
CPT/HCPCS: 71260; A4222

== ENCOUNTER 2018-08-19 15:15 | Inpatient (IN) ==
[2018-08-19] MEDS ORDERED: DUONEB 0.5 MG/3 MG ONE (15:40)
[2018-08-19] MEDS ORDERED: DUONEB 0.5 MG/3 MG NEB ONE (16:00)
[2018-08-19] MEDS ORDERED: SOLU-Medrol 125 MG VIAL ONE (16:23)
[2018-08-19 16:26] LABS: BASOPHILS # (AUTO) 0.1 X10^3/uL (0.0-0.1); BASOPHILS % (AUTO) 1.3 % (0.2-1.0); EOSINOPHILS # (AUTO) 0.2 x10^3/uL (0.0-0.2); EOSINOPHILS % (AUTO) 4.8 % (0.9-2.9); HEMATOCRIT 39.2 % (42.0-54.0); HEMOGLOBIN 12.7 g/dL (13.5-18.0); LYMPHOCYTES % (AUTO) 20.5 % (21.0-51.0); MEAN CORPUSCULAR HGB CONC 32.4 g/dL (33.0-35.0); MEAN CORPUSCULAR VOLUME 86.5 fL (80.0-100.0); MEAN PLATELET VOLUME 7.7 fL (7.4-11.0); MONOCYTES # (AUTO) 0.5 x10^3/uL (0.3-0.8); MONOCYTES % (AUTO) 10.4 % (0.0-13.0); NEUTROPHILS # (AUTO) 3.1 x10^3/uL (2.2-4.8); PLATELET COUNT 212 X10^3/uL (150.0-450.0); RED BLOOD COUNT 4.53 X10^6/uL (4.7-6.0); RED CELL DISTRIBUTION WIDTH 16.5 % (11.6-16.5); WHITE BLOOD COUNT 4.9 X10^3/uL (3.6-10.0)
[2018-08-19] MEDS ORDERED: SOLU-Medrol 125 MG VIAL IVP ONE (16:27)
--- NOTE | 2018-08-19 16:27 | RAD ---
Indication: Cough Exam: Portable chest Comparison: 12/01/2017 Findings: The left ventricle is mildly enlarged but unchanged. The pulmonary vessels are less prominent centrally. The lungs are hyperinflated and emphysematous with probable chronic interstitial changes throughout and mild densities along the lung bases which are less prominent . No effusion or pneumothorax is seen. Impression: Stable mild left ventricular enlargement with mild central pulmonary congestion or pulmonary artery hypertension which is less prominent. Chronic obstructive lung changes and probable chronic interstitial changes throughout with mild discoid atelectasis or scarring scattered along the lung bases which is less prominent. Reported By:
--- NOTE | 2018-08-19 16:35 | DR.SOBA ---
HPI Time Seen Time Seen by Provider: 08/19/18 16:22 Primary Care Physician Primary Care Physician: GAIL MONTERO Complaints Chief Complaint Doctors Comments: Patient presents with complaint of cough, congestion and dyspnea. He has a history of COPD on home oxygen. He states that he has not been using his oxygen. Chief Complaint:: PT SENT OVER TO BE EVALUATED FOR CCC, SOB , AND WHEEZING PER EDD Payne .PT WEARS HOME O2 AND PT IS WHEEZING NO DISTRESS NOTED AND PT HAS HX OF COPD, BR Source History Provided: Patient Mode of Arrival Mode of Arrival: Ambulatory Timing Onset of Chief Complaint: 07/19/18 PMH PMH Past Medical History: Yes Past Medical History: Diabetes and Hypertension Past Medical History Comment: COPD, Past Surgical History: Yes Surgical History: Other Family History History of Family Medical Conditions: No Family Medical History: Hypertension Social History Does patient currently use any type of tobacco product: No Have you used tobacco products in the last 12 months: No Type of Tobacco Use: None Does any household member use tobacco: No Alcohol Use: None Do you use any recreational Drugs:: No Lives With: Alone Lives Where: Home infectious screening In the last 2 months have you had wt loss of >10#?: NO Have you had fever, night sweats or hemotysis?: No Have you traveled outside the country in the last 6 months?: No Isolation: Standard PE Vital Signs Vitals: Temperature 98.0 F Pulse Rate [Right] 80 Pulse Rate 86 Respiratory Rate 20 Blood Pressure [Right Arm] 108/61 Blood Pressure [Left Arm] 110/75 Blood Pressure 120/87 O2 Sat by Pulse Oximetry 95 General Limitations: No Limitations and Language Barrier General Appearance: Alert, In No Apparent Distress and Anxious Head Head Exam: Normal Inspection, Atraumatic and Normocephalic Eyes Eye exam: Normal Appearance, PERRL and EOMI ENT ENT Exam: Normal Exam, Normal Oropharynx and Normal External Ear Exam Neck Neck Exam: Normal Inspection, Full ROM and Trachea Midline Respiratory Respiratory Exam: Normal Lung Sounds Bilat Respiratory Exam: Bilateral: Clear to Auscultation Abdominal Exam Abdominal Exam: Normal Inspection, Normal Bowel Sounds and Soft Extremities Extremities Exam: Normal Inspection and Full ROM Back Back Exam: Normal Inspection and Full ROM Neurologic Neurological Exam: Alert, Oriented X3 and CN II-XII Intact Psychiatric Psychiatric Exam: Normal Affect and Normal Mood Skin Skin Exam: Warm, Dry and Intact ROR Labs Reviewed Laboratory Results Reviewed?: Yes Result Diagrams: 08/19/18 16:16 08/19/18 16:16 Laboratory: WBC 4.9 X10^3/uL (3.6-10.0) 08/19/18 16:16 RBC 4.53 X10^6/uL (4.7-6.0) L 08/19/18 16:16 Hgb 12.7 g/dL (13.5-18.0) L 08/19/18 16:16 Hct 39.2 % (42.0-54.0) L 08/19/18 16:16 MCV 86.5 fL (80.0-100.0) 08/19/18 16:16 MCH 28.0 pg (27.0-34.0) 08/19/18 16:16 MCHC 32.4 g/dL (33.0-35.0) L 08/19/18 16:16 RDW 16.5 % (11.6-16.5) 08/19/18 16:16 Plt Count 212 X10^3/uL (150.0-450.0) 08/19/18 16:16 MPV 7.7 fL (7.4-11.0) 08/19/18 16:16 Neut % (Auto) 63.0 % (42.0-75.0) 08/19/18 16:16 Lymph % (Auto) 20.5 % (21.0-51.0) L 08/19/18 16:16 Lipscomb % (Auto) 10.4 % (0.0-13.0) 08/19/18 16:16 Eos % (Auto) 4.8 % (0.9-2.9) H 08/19/18 16:16 Baso % (Auto) 1.3 % (0.2-1.0) H 08/19/18 16:16 Neut # (Auto) 3.1 x10^3/uL (2.2-4.8) 08/19/18 16:16 Lymph # (Auto) 1.0 X10^3/uL (1.3-2.9) L 08/19/18 16:16 Lipscomb # (Auto) 0.5 x10^3/uL (0.3-0.8) 08/19/18 16:16 Eos # (Auto) 0.2 x10^3/uL (0.0-0.2) 08/19/18 16:16 Baso # (Auto) 0.1 X10^3/uL (0.0-0.1) 08/19/18 16:16 Absolute Nucleated RBC 0.0 /100WBC 08/19/18 16:16 D-Dimer 811 ng/mL (0-400) H* 08/19/18 16:16 Sample Site Rr 08/19/18 21:41 ABG pH 7.410 (7.35-7.45) 08/19/18 21:41 ABG pCO2 59.0 mmHg (35.0-45.0) H* 08/19/18 21:41 ABG pO2 105.0 mmHg (80.0-100.0) H 08/19/18 21:41 ABG HCO3 37.4 mmol/L (22-26) H* 08/19/18 21:41 ABG O2 Saturation 98.0 % (90-100) 08/19/18 21:41 ABG Base Excess 10.6 mmol/L (-2.0-2.0) H 08/19/18 21:41 Colin Test Pos 08/19/18 21:41 A-a Gradient 21.0 mmHg 08/19/18 21:41 FiO2 28.0 08/19/18 21:41 Blood Gas Comments Pt linda well elj 08/19/18 21:41 Sodium 138 mmol/L (136-145) 08/19/18 16:16 Corrected Sodium 139 mmol/L (136-145) 08/19/18 16:16 Potassium 4.5 mmol/L (3.5-5.1) 08/19/18 16:16 Chloride 100 mmol/L (98-107) 08/19/18 16:16 Carbon Dioxide 35.9 mmol/L (21-32) H 08/19/18 16:16 BUN 23 mg/dL (7-18) H 08/19/18 16:16 Creatinine 0.82 mg/dL (0.70-1.30) 08/19/18 16:16 Est GFR (MDRD) Af Amer > 60 (>60) 08/19/18 16:16 Est GFR (MDRD) Non-Af > 60 (>60) 08/19/18 16:16 Glucose 124 mg/dL (65-99) H 08/19/18 16:16 Lactic Acid 1.0 mmol/L (0.4-2.0) 08/19/18 16:16 Calcium 8.9 mg/dL (8.5-10.1) 08/19/18 16:16 Corrected Calcium 9.6 mg/dL (8.5-10.1) 08/19/18 16:16 Total Bilirubin 0.30 mg/dL (0.2-1.0) 08/19/18 16:16 AST 14 Units/L (15-37) L 08/19/18 16:16 ALT 15 Units/L (12-78) 08/19/18 16:16 Alkaline Phosphatase 59 Units/L (46-116) 08/19/18 16:16 Total Protein 8.0 g/dL (6.4-8.2) 08/19/18 16:16 Albumin 3.1 g/dL (3.4-5.0) L 08/19/18 16:16 Globulin 4.9 g/dL (2.5-4.5) H 08/19/18 16:16 Albumin/Globulin Ratio 0.6 Ratio (1.1-2.1) L 08/19/18 16:16 Other Results Comments: Chest: Stable mild left ventricular enlargement with mild central pulmonary congestion or pulmonary artery hypertension which is less prominent. Chronic obstructive lung changes and probable chronic interstitial changes throughout with mild discoid atelectasis or scarring scattered along the lung bases which is less prominent. Diagnosis Discharge Problem: Antibiotics started per pneumonia protocol ADDITIONAL NOTES Additional Notes Additional Notes: Patient admitted for parenteral antibioitics for pneumonia
[2018-08-19 16:37] LABS: ALANINE AMINOTRANSFERASE 15 Units/L (12-78); ALBUMIN 3.1 g/dL (3.4-5.0); ALKALINE PHOSPHATASE 59 Units/L (46-116); ASPARTATE AMINO TRANSFERASE 14 Units/L (15-37); BLOOD UREA NITROGEN 23 mg/dL (7-18); CALCIUM 8.9 mg/dL (8.5-10.1); CARBON DIOXIDE 35.9 mmol/L (21-32); CHLORIDE 100 mmol/L (98-107); COR CA(FOR HYPOALB) 9.6 mg/dL (8.5-10.1); COR NA(FOR HYPERGLY) 139 mmol/L (136-145); CREATININE 0.82 mg/dL (0.70-1.30); SODIUM 138 mmol/L (136-145); eGFR NON BLACK RACES > 60 (>60)
[2018-08-19 20:30] LABS: ABG BASE EXCESS 13.1 mmol/L (-2.0-2.0)
[2018-08-19] MEDS ORDERED: SALINE 3% 15 ML NEB TX ONE (20:30)
[2018-08-19] MEDS ORDERED: SALINE 3% 15 ML NEB TX NEB ONE (20:30)
[2018-08-19 20:31] LABS: ABG HCO3 40.2 mmol/L (22-26)
[2018-08-19 20:32] LABS: ABG ALLEN TEST POS
[2018-08-19] MEDS ORDERED: NS 1/2 1000 ML IV 1,000 ML IV ONE (20:34)
[2018-08-19] MEDS: LEVAQUIN PREMIX IV 750 MG 750 MG/150 ML BAG IV SCH (21:00)
[2018-08-19] MEDS: NS 1/2 1000 ML IV 1,000 ML IV SCH (21:00)
[2018-08-19] MEDS ORDERED: HumuLIN R SUBCUT PRN (21:26)
[2018-08-19 21:57] LABS: ABG BASE EXCESS 10.6 mmol/L (-2.0-2.0)
[2018-08-19 21:58] LABS: ABG ALLEN TEST POS; ABG HCO3 37.4 mmol/L (22-26)
[2018-08-19] MEDS ORDERED: ALBUTEROL SULFATE IN PRN (22:21)
[2018-08-19] MEDS ORDERED: COLACE CAP 100 MG PO SCH (22:21)
[2018-08-19] MEDS ORDERED: VITAMIN D (1.25MG) PO SCH (22:21)
[2018-08-19] MEDS ORDERED: VENTOLIN or PROAIR HFA IN PRN ×2 (22:26→23:00)
[2018-08-19 22:42] VITALS: BMI 16.9
[2018-08-19] MEDS: PEPCID TAB 20 MG PO SCH (23:33)
[2018-08-19] MEDS: ROBITUSSIN DM PO SCH (23:33)
[2018-08-20] MEDS: PROVENTIL NEB TX 0.083% 2.5MG/ 3ML NEB SCH ×5 (01:26→20:45)
[2018-08-20 05:25] LABS: BASOPHILS % (AUTO) 0.4 % (0.2-1.0); HEMATOCRIT 35.3 % (42.0-54.0); HEMOGLOBIN 11.4 g/dL (13.5-18.0); LYMPHOCYTES # (AUTO) 0.9 X10^3/uL (1.3-2.9); LYMPHOCYTES % (AUTO) 22.7 % (21.0-51.0); MEAN CORPUSCULAR HEMOGLOBIN 27.8 pg (27.0-34.0); MEAN CORPUSCULAR HGB CONC 32.4 g/dL (33.0-35.0); MEAN CORPUSCULAR VOLUME 85.6 fL (80.0-100.0); MEAN PLATELET VOLUME 7.9 fL (7.4-11.0); MONOCYTES # (AUTO) 0.4 x10^3/uL (0.3-0.8); MONOCYTES % (AUTO) 10.1 % (0.0-13.0); NEUTROPHILS # (AUTO) 2.5 x10^3/uL (2.2-4.8); NEUTROPHILS % (AUTO) 66.8 % (42.0-75.0); PLATELET COUNT 213 X10^3/uL (150.0-450.0); RED BLOOD COUNT 4.12 X10^6/uL (4.7-6.0); RED CELL DISTRIBUTION WIDTH 16.3 % (11.6-16.5); WHITE BLOOD COUNT 3.8 X10^3/uL (3.6-10.0)
[2018-08-20 05:30] LABS: ALANINE AMINOTRANSFERASE 13 Units/L (12-78); ALBUMIN 2.5 g/dL (3.4-5.0); ALKALINE PHOSPHATASE 50 Units/L (46-116); ASPARTATE AMINO TRANSFERASE 11 Units/L (15-37); BLOOD UREA NITROGEN 19 mg/dL (7-18); CALCIUM 8.4 mg/dL (8.5-10.1); CARBON DIOXIDE 31.8 mmol/L (21-32); CHLORIDE 100 mmol/L (98-107); COR CA(FOR HYPOALB) 9.6 mg/dL (8.5-10.1); COR NA(FOR HYPERGLY) 140 mmol/L (136-145); CREATININE 0.79 mg/dL (0.70-1.30); SODIUM 138 mmol/L (136-145); eGFR NON BLACK RACES > 60 (>60)
[2018-08-20 06:58] LABS: ABG BASE EXCESS 11.6 mmol/L (-2.0-2.0)
[2018-08-20 07:00] LABS: ABG HCO3 38.3 mmol/L (22-26)
[2018-08-20] MEDS ORDERED: VITAMIN D (1.25MG) PO SCH (09:00)
[2018-08-20] MEDS ORDERED: UNIPHYL TAB 400 MG PO SCH (09:00)
[2018-08-20] MEDS: PEPCID TAB 20 MG PO SCH ×2 (09:17→21:59)
[2018-08-20] MEDS: COLACE CAP 100 MG PO SCH (09:17)
[2018-08-20] MEDS: MEGACE PO SCH (09:19)
[2018-08-20] MEDS: LEVAQUIN PREMIX IV 750 MG 750 MG/150 ML BAG IV SCH (09:19)
[2018-08-20] MEDS: ROBITUSSIN DM PO SCH ×4 (09:19→21:59)
[2018-08-20 09:20] LABS: BILIRUBIN,URINE NEGATIVE (NEGATIVE); BLOOD/HEMOGLOBIN,URINE 2+ (NEGATIVE); GLUCOSE, URINE NEGATIVE (NEGATIVE); KETONES,URINE NEGATIVE (NEGATIVE); LEUKOCYTE ESTERASE ,URINE 3+ (NEGATIVE); NITRITES,URINE POSITIVE (NEGATIVE); PROTEIN,URINE 2+ (NEGATIVE); UROBILINOGEN,URINE NORMAL (NORMAL)
[2018-08-20] MEDS: NS 1/2 1000 ML IV 1,000 ML IV SCH (09:21)
[2018-08-20 09:29] LABS: APPEARANCE,URINE CLOUDY (CLEAR); BACTERIA,URINE 3+ /HPF (NEGATIVE); COLOR,URINE YELLOW (YELLOW); SQUAMOUS EPITHELIAL CELL,UR RARE /HPF (NEGATIVE)
[2018-08-20 10:00] LABS: APPEARANCE,URINE SLIGHTLY HAZY (CLEAR); BILIRUBIN,URINE NEGATIVE (NEGATIVE); BLOOD/HEMOGLOBIN,URINE 2+ (NEGATIVE); COLOR,URINE YELLOW (YELLOW); GLUCOSE, URINE NEGATIVE (NEGATIVE); KETONES,URINE NEGATIVE (NEGATIVE); LEUKOCYTE ESTERASE ,URINE 3+ (NEGATIVE); NITRITES,URINE POSITIVE (NEGATIVE); PROTEIN,URINE 2+ (NEGATIVE); UROBILINOGEN,URINE 1+ (NORMAL)
[2018-08-20 10:06] LABS: AMORPHOUS SEDIMENT,UR 1+ /HPF (NEGATIVE); BACTERIA,URINE 1+ /HPF (NEGATIVE); RBC,URINE 0-2 /HPF (NONE SEEN); RENAL EPITHELIAL CELLS,URINE RARE /HPF (NEGATIVE); SQUAMOUS EPITHELIAL CELL,UR RARE /HPF (NEGATIVE)
[2018-08-20 10:07] LABS: MUCUS,URINE FEW /HPF (NEGATIVE)
[2018-08-20] MEDS: UNIPHYL TAB 400 MG PO SCH ×2 (10:51→21:59)
[2018-08-20] MEDS ORDERED: NS 1/2 1000 ML IV 1,000 ML IV ONE (10:54)
[2018-08-20] MEDS: SOLU-Medrol 40 MG VIAL IVP SCH ×3 (11:17→22:01)
[2018-08-20] MEDS: BROVANA IN SCH ×2 (12:03→20:46)
[2018-08-20] MEDS: PULMICORT NEB TX 0.5 MG NEB SCH ×2 (12:03→20:45)
[2018-08-20] MEDS: MUCOMYST 20% 200 MG/ML NEB SCH ×2 (12:03→20:45)
[2018-08-20] MEDS: HumuLIN R SUBCUT PRN ×2 (16:58→21:58)
[2018-08-20] MEDS ORDERED: SNACK - Diabetic Appropriate PO SCH (20:00)
[2018-08-20] MEDS ORDERED: SALINE 3% 15 ML NEB TX NEB ONE (20:30)
[2018-08-20] MEDS: SNACK - Diabetic Appropriate PO SCH (20:40)
[2018-08-21] MEDS ORDERED: NS 1/2 1000 ML IV 1,000 ML IV ONE ×2 (04:08→16:28)
[2018-08-21] MEDS: NS 1/2 1000 ML IV 1,000 ML IV SCH ×3 (04:31→16:40)
[2018-08-21 06:35] LABS: BASOPHILS % (AUTO) 0.1 % (0.2-1.0); HEMATOCRIT 36.1 % (42.0-54.0); HEMOGLOBIN 11.5 g/dL (13.5-18.0); LYMPHOCYTES # (AUTO) 0.4 X10^3/uL (1.3-2.9); LYMPHOCYTES % (AUTO) 10.2 % (21.0-51.0); MEAN CORPUSCULAR HEMOGLOBIN 27.6 pg (27.0-34.0); MEAN CORPUSCULAR HGB CONC 31.9 g/dL (33.0-35.0); MEAN CORPUSCULAR VOLUME 86.6 fL (80.0-100.0); MEAN PLATELET VOLUME 8.4 fL (7.4-11.0); MONOCYTES # (AUTO) 0.2 x10^3/uL (0.3-0.8); MONOCYTES % (AUTO) 4.1 % (0.0-13.0); NEUTROPHILS # (AUTO) 3.7 x10^3/uL (2.2-4.8); NEUTROPHILS % (AUTO) 85.6 % (42.0-75.0); PLATELET COUNT 212 X10^3/uL (150.0-450.0); RED BLOOD COUNT 4.17 X10^6/uL (4.7-6.0); RED CELL DISTRIBUTION WIDTH 16.3 % (11.6-16.5); WHITE BLOOD COUNT 4.3 X10^3/uL (3.6-10.0)
[2018-08-21] MEDS: HumuLIN R SUBCUT PRN (06:39)
[2018-08-21 06:59] LABS: ALANINE AMINOTRANSFERASE 15 Units/L (12-78); ALBUMIN 2.8 g/dL (3.4-5.0); ALKALINE PHOSPHATASE 50 Units/L (46-116); ASPARTATE AMINO TRANSFERASE 14 Units/L (15-37); BLOOD UREA NITROGEN 15 mg/dL (7-18); CALCIUM 8.4 mg/dL (8.5-10.1); CARBON DIOXIDE 28.1 mmol/L (21-32); CHLORIDE 100 mmol/L (98-107); COR CA(FOR HYPOALB) 9.4 mg/dL (8.5-10.1); COR NA(FOR HYPERGLY) 139 mmol/L (136-145); CREATININE 0.78 mg/dL (0.70-1.30); SODIUM 137 mmol/L (136-145); TOTAL PROTEIN 7.2 g/dL (6.4-8.2); eGFR NON BLACK RACES > 60 (>60)
--- NOTE | 2018-08-21 07:09 | RAD ---
HISTORY: Cough Study: Chest AP portable Comparison: 08/19/2018 Findings: The patient is rotated to the left. The heart is within normal limits in size. The juan are normal. No congestive heart failure is noted. The aorta is calcified. The lungs are hyperinflated but free of acute alveolar infiltrates. Interstitial lung changes are present bilaterally not significantly changed from the prior examination. The bony thorax is unremarkable. IMPRESSION: No significant change from the prior examination Reported By:
[2018-08-21] MEDS: LEVAQUIN PREMIX IV 750 MG 750 MG/150 ML BAG IV SCH (09:18)
[2018-08-21] MEDS: UNIPHYL TAB 400 MG PO SCH ×2 (09:20→21:45)
[2018-08-21] MEDS: MEGACE PO SCH (09:20)
[2018-08-21] MEDS: ROBITUSSIN DM PO SCH ×4 (09:20→21:45)
[2018-08-21] MEDS: COLACE CAP 100 MG PO SCH (09:20)
[2018-08-21] MEDS: PEPCID TAB 20 MG PO SCH ×2 (09:20→21:45)
[2018-08-21] MEDS: BROVANA IN SCH ×2 (09:26→20:30)
[2018-08-21] MEDS: PULMICORT NEB TX 0.5 MG NEB SCH ×2 (09:27→20:30)
[2018-08-21] MEDS: MUCOMYST 20% 200 MG/ML NEB SCH ×2 (09:27→20:30)
[2018-08-21] MEDS: PROVENTIL NEB TX 0.083% 2.5MG/ 3ML NEB SCH ×4 (09:27→20:30)
--- NOTE | 2018-08-21 15:26 | DR.H&P ---
H&P - History & Physical for Day of: H&P Date: 08/20/18 - Chief Complaint Chief Complaint: CCC, SOB - History of Present Illness History of Present Illness: 68 BM ER ADMISSION AFTER PRESENTING WITH CO CCC AND WHEEZING WITH INCREASED SOB. PT STATES HE SEEN HIS PCP, WINSTON REYNOLDS AND HAS TAKEN OUTPT INJECTIONS AND ANTIBIOTICS BY MOUTH WITHOUT IMPROVEMENT AND WAS REFERRED TO THE ER DUE TO INCREASED SOB. PT CXR ON ADMISSION WITH CHRONIC COPD FINDINGS. PO2 ON ADMISSION 36. PT ADMITTED FOR TREATMENT OF ACUTE ON CHRONIC RESP ILLNESS. - Past Medical History Past Medical History: Arthritis, COPD, Diabetes, GERD, Hypertension Additional Medical History: Pneumonia - Past Surgical History Surgical History: Other - Family History Family Medical History: Hypertension - Social History Does patient currently use any type of tobacco product: No Have you used tobacco products in the last 12 months: No Type of Tobacco Use: None Does any household member use tobacco: No Alcohol Use: None Drug Use: None - Medications Home Medications: No Known Drug Allergies Allergy (Verified 08/19/18 15:21) CONTINUE taking the following medications albuterol sulfate [ProAir HFA] 1 inh INHALATION Q4H PRN 08/19/18 [History] docusate sodium [Laxa Basic] 3 tab PO HS 08/19/18 [History] ergocalciferol (vitamin D2) [Vitamin D2] 50,000 unit PO QWEEK 08/19/18 [History] famotidine 1 tab PO BID 08/19/18 [History] megestrol 1 tab PO DAILY 08/19/18 [History] theophylline 0.5 mg PO BID 08/19/18 [History] - Review of Systems Constitutional: Fever, Chills, Weakness Eyes: No Symptoms Reported ENT: No Symptoms Reported Respiratory: Cough, Shortness of Breath, SOB with Excertion, Sputum, Wheezing Cardiovascular: Chest Pain. denies: Edema Gastrointestinal: Nausea, Abdominal Pain Genitourinary: No Symptoms Reported Musculoskeletal: No Symptoms Reported Skin: No Symptoms Reported Neurological: No Symptoms Reported - Physical Exam Vital Signs: Temperature 98.3 F Pulse Rate [Right] 78 Pulse Rate 94 Respiratory Rate 20 Blood Pressure [Right Arm] 109/63 Blood Pressure [Left Arm] 110/75 Blood Pressure 120/87 O2 Sat by Pulse Oximetry 93 Oriented: Normal Eyes: Normal Ear: Normal Nose: Normal Throat: Dry Respiratory: Diminished Throughout, Wheezes Throughout Cardiovascular: Tachycardia. negative: Murmur : Normal Auscultation: Bowel Sounds: Normal Palpation: Normal Tenderness: Normal Skin: Decreased Turgur Musculoskeletal: Normal Psychiatric: Anxiety Affect: Anxious Speech Pattern: Clear, Appropriate - Assessment/Plan (1) SOB (shortness of breath) Status: Acute Plan: ADMIT, RESP THERAPY, SUPPLEMENTAL O2, IV SOLU MEDROL. BLOOD AND SPUTUM CULTURES, IV ATBX. VERIFY HOME MEDICATION, BS AND BP CONTROL. REPEAT AM LABS, CXR ON ADMISSION, CT CHEST WITH CONTRAST (2) Pneumonia Status: Acute (3) COPD exacerbation Status: Acute (4) Hypertension Qualifiers: Status: Chronic - Allergies Allergies/Adverse Reactions: Allergies Allergy/AdvReac Type Severity Reaction Status Date / Time No Known Drug Allergies Allergy Verified 08/19/18 15:21
--- NOTE | 2018-08-21 15:30 | PCM.PROG ---
Progress Note - Progress Note for Day of Date of Exam: 08/21/18 - Subjective Subjective: 68 BM ADMITTED ON 08/20 WITH PNEUMONIA, CT CHEST CONFIRMED MULTI FOCAL PNEUMONIA, SPUTUM CULTURE PENDING, PT REPORTS IMPROVING WHEEZING, HAVING A HARD TIME COUGHING UP MUCOUS BECAUSE HE "FEELS WEAK". PLAN TO CONTINUE RESP THERAPY, GENTLE HYDRATION, PT CONSULT. REPEAT AM ABG - Past Medical Family Social History Past Med/Fam/Surg Hx: No changes since H&P Allergies: Allergies No Known Drug Allergies Allergy (Verified 08/19/18 15:21) - Review of Systems ROS: No change since H&P - Vital Signs and I&O's Vital Signs: Temperature 98.3 F Pulse Rate [Right] 78 Pulse Rate 94 Respiratory Rate 20 Blood Pressure [Right Arm] 109/63 Blood Pressure [Left Arm] 110/75 Blood Pressure 120/87 O2 Sat by Pulse Oximetry 93 Intake and Output: Intake & Output 08/19/18 08/20/18 08/21/18 08/22/18 11:59 11:59 11:59 11:59 Intake Total 130 / 130 2360 / 2360 Output Total 700 / 700 1200 / 1200 Balance -570 / -570 1160 / 1160 - Physical Exam Oriented: Normal Eyes: Normal Ear: Normal Nose: Normal Throat: Dry Respiratory: Diminished, Wheezes, Rhonchi Cardiovascular: Tachycardia. negative: Murmur : Normal Auscultation: Bowel Sounds: Normal Tenderness: Normal Skin: Decreased Turgur Musculoskeletal: Normal Psychiatric: Anxiety Affect: Anxious Speech Pattern: Clear, Appropriate - Laboratory and Diagnostics Result Diagrams: 08/21/18 04:58 08/21/18 04:58 Labs: 08/19/18 20:43 Blood Blood Culture - Preliminary 08/19/18 15:50 Blood Blood Culture - Preliminary 08/20/18 19:28 Sputum - Expectorated Sputum Sputum Culture - Preliminary 08/20/18 19:28 Sputum - Expectorated Sputum - Final 08/20/18 09:50 Urine,Clean Catch Urine Culture - Preliminary Laboratory WBC 4.3 X10^3/uL (3.6-10.0) 08/21/18 04:58 RBC 4.17 X10^6/uL (4.7-6.0) L 08/21/18 04:58 Hgb 11.5 g/dL (13.5-18.0) L 08/21/18 04:58 Hct 36.1 % (42.0-54.0) L 08/21/18 04:58 MCV 86.6 fL (80.0-100.0) 08/21/18 04:58 MCH 27.6 pg (27.0-34.0) 08/21/18 04:58 MCHC 31.9 g/dL (33.0-35.0) L 08/21/18 04:58 RDW 16.3 % (11.6-16.5) 08/21/18 04:58 Plt Count 212 X10^3/uL (150.0-450.0) 08/21/18 04:58 MPV 8.4 fL (7.4-11.0) 08/21/18 04:58 Neut % (Auto) 85.6 % (42.0-75.0) H 08/21/18 04:58 Lymph % (Auto) 10.2 % (21.0-51.0) L 08/21/18 04:58 Evangeline % (Auto) 4.1 % (0.0-13.0) 08/21/18 04:58 Eos % (Auto) 0.0 % (0.9-2.9) L 08/21/18 04:58 Baso % (Auto) 0.1 % (0.2-1.0) L 08/21/18 04:58 Neut # (Auto) 3.7 x10^3/uL (2.2-4.8) 08/21/18 04:58 Lymph # (Auto) 0.4 X10^3/uL (1.3-2.9) L 08/21/18 04:58 Evangeline # (Auto) 0.2 x10^3/uL (0.3-0.8) L 08/21/18 04:58 Eos # (Auto) 0.0 x10^3/uL (0.0-0.2) 08/21/18 04:58 Baso # (Auto) 0.0 X10^3/uL (0.0-0.1) 08/21/18 04:58 Absolute Nucleated RBC 0.1 /100WBC 08/21/18 04:58 D-Dimer 811 ng/mL (0-400) H* 08/19/18 16:16 Sample Site Rbra 08/20/18 06:45 ABG pH 7.420 (7.35-7.45) 08/20/18 06:45 ABG pCO2 59.0 mmHg (35.0-45.0) H* 08/20/18 06:45 ABG pO2 51.0 mmHg (80.0-100.0) L 08/20/18 06:45 ABG HCO3 38.3 mmol/L (22-26) H* 08/20/18 06:45 ABG O2 Saturation 86.0 % (90-100) L 08/20/18 06:45 ABG Base Excess 11.6 mmol/L (-2.0-2.0) H 08/20/18 06:45 Colin Test Na 08/20/18 06:45 A-a Gradient 103.0 mmHg 08/20/18 06:45 FiO2 32.0 08/20/18 06:45 Blood Gas Comments Sally abg well-mtf 08/20/18 06:45 Sodium 137 mmol/L (136-145) 08/21/18 04:58 Corrected Sodium 139 mmol/L (136-145) 08/21/18 04:58 Potassium 4.5 mmol/L (3.5-5.1) 08/21/18 04:58 Chloride 100 mmol/L (98-107) 08/21/18 04:58 Carbon Dioxide 28.1 mmol/L (21-32) 08/21/18 04:58 BUN 15 mg/dL (7-18) 08/21/18 04:58 Creatinine 0.78 mg/dL (0.70-1.30) 08/21/18 04:58 Est GFR (MDRD) Af Amer > 60 (>60) 08/21/18 04:58 Est GFR (MDRD) Non-Af > 60 (>60) 08/21/18 04:58 Glucose 170 mg/dL (65-99) H 08/21/18 04:58 POC Glucose (mg/dL) 108 mg/dL (65-99) H 08/21/18 11:44 Hemoglobin A1c 6.4 % 08/20/18 04:54 Lactic Acid 1.0 mmol/L (0.4-2.0) 08/19/18 16:16 Calcium 8.4 mg/dL (8.5-10.1) L 08/21/18 04:58 Corrected Calcium 9.4 mg/dL (8.5-10.1) 08/21/18 04:58 Total Bilirubin 0.30 mg/dL (0.2-1.0) 08/21/18 04:58 AST 14 Units/L (15-37) L 08/21/18 04:58 ALT 15 Units/L (12-78) 08/21/18 04:58 Alkaline Phosphatase 50 Units/L (46-116) 08/21/18 04:58 Total Protein 7.2 g/dL (6.4-8.2) 08/21/18 04:58 Albumin 2.8 g/dL (3.4-5.0) L 08/21/18 04:58 Globulin 4.4 g/dL (2.5-4.5) 08/21/18 04:58 Albumin/Globulin Ratio 0.6 Ratio (1.1-2.1) L 08/21/18 04:58 Specimen Type Clean catch urine 08/20/18 09:50 Urine Color Yellow (YELLOW) 08/20/18 09:50 Urine Appearance Slightly hazy (CLEAR) 08/20/18 09:50 Urine pH 6.0 (5.0 - 8.0) 08/20/18 09:50 Ur Specific [place] 1.015 (1.000-1.030) 08/20/18 09:50 Urine Protein 2+ (NEGATIVE) 08/20/18 09:50 Urine Glucose (UA) Negative (NEGATIVE) 08/20/18 09:50 Urine Ketones Negative (NEGATIVE) 08/20/18 09:50 Urine Occult Blood 2+ (NEGATIVE) 08/20/18 09:50 Urine Nitrite Positive (NEGATIVE) 08/20/18 09:50 Urine Bilirubin Negative (NEGATIVE) 08/20/18 09:50 Urine Urobilinogen 1+ (NORMAL) 08/20/18 09:50 Ur Leukocyte Esterase 3+ (NEGATIVE) 08/20/18 09:50 Urine RBC 0-2 /HPF (NONE SEEN) 08/20/18 09:50 Urine WBC 20-30 /HPF (NONE SEEN) 08/20/18 09:50 Ur Squamous Epith Cells Rare /HPF (NEGATIVE) 08/20/18 09:50 Ur Renal Epithelial Cell Rare /HPF (NEGATIVE) 08/20/18 09:50 Amorphous Sediment 1+ /HPF (NEGATIVE) 08/20/18 09:50 Urine Bacteria 1+ /HPF (NEGATIVE) 08/20/18 09:50 Urine Mucus Few /HPF (NEGATIVE) 08/20/18 09:50 Ur Culture Indicated? Yes/culture set up 08/20/18 09:50 - Plan (1) Pneumonia Status: Acute Plan: RESP THERAPY, SUPPLEMENTAL O2, IV SOLU MEDROL. BLOOD AND SPUTUM CULTURES PENDING, IV ATBX. BS AND BP CONTROL. REPEAT AM LABS, CT CHEST WITH CONTRAST WITH BILATERAL MULTI FOCAL PNEUMONIA (2) COPD exacerbation Status: Acute (3) Hypertension Status: Chronic Qualifiers:
[2018-08-21] MEDS: SNACK - Diabetic Appropriate PO SCH (20:35)
[2018-08-22] MEDS: NS 1/2 1000 ML IV 1,000 ML IV SCH ×3 (05:27→20:16)
[2018-08-22 06:18] LABS: BASOPHILS % (AUTO) 0.7 % (0.2-1.0); EOSINOPHILS # (AUTO) 0.1 x10^3/uL (0.0-0.2); EOSINOPHILS % (AUTO) 1.5 % (0.9-2.9); HEMATOCRIT 37.8 % (42.0-54.0); HEMOGLOBIN 12.2 g/dL (13.5-18.0); LYMPHOCYTES # (AUTO) 0.9 X10^3/uL (1.3-2.9); LYMPHOCYTES % (AUTO) 14.3 % (21.0-51.0); MEAN CORPUSCULAR HEMOGLOBIN 27.7 pg (27.0-34.0); MEAN CORPUSCULAR HGB CONC 32.2 g/dL (33.0-35.0); MEAN CORPUSCULAR VOLUME 85.9 fL (80.0-100.0); MEAN PLATELET VOLUME 8.2 fL (7.4-11.0); MONOCYTES # (AUTO) 0.7 x10^3/uL (0.3-0.8); MONOCYTES % (AUTO) 11.8 % (0.0-13.0); NEUTROPHILS # (AUTO) 4.4 x10^3/uL (2.2-4.8); NEUTROPHILS % (AUTO) 71.7 % (42.0-75.0); PLATELET COUNT 199 X10^3/uL (150.0-450.0); RED CELL DISTRIBUTION WIDTH 16.4 % (11.6-16.5); WHITE BLOOD COUNT 6.2 X10^3/uL (3.6-10.0)
[2018-08-22] MEDS ORDERED: NS 1/2 1000 ML IV 1,000 ML IV ONE ×2 (06:22→20:56)
[2018-08-22 06:40] LABS: ALANINE AMINOTRANSFERASE 16 Units/L (12-78); ALBUMIN 2.7 g/dL (3.4-5.0); ALKALINE PHOSPHATASE 49 Units/L (46-116); ASPARTATE AMINO TRANSFERASE 15 Units/L (15-37); BLOOD UREA NITROGEN 13 mg/dL (7-18); CALCIUM 8.6 mg/dL (8.5-10.1); CARBON DIOXIDE 31.9 mmol/L (21-32); CHLORIDE 101 mmol/L (98-107); COR CA(FOR HYPOALB) 9.6 mg/dL (8.5-10.1); CREATININE 0.67 mg/dL (0.70-1.30); SODIUM 139 mmol/L (136-145); TOTAL PROTEIN 6.9 g/dL (6.4-8.2); eGFR NON BLACK RACES > 60 (>60)
[2018-08-22] MEDS: LEVAQUIN PREMIX IV 750 MG 750 MG/150 ML BAG IV SCH (08:31)
[2018-08-22] MEDS: PEPCID TAB 20 MG PO SCH ×2 (08:31→20:14)
[2018-08-22] MEDS: UNIPHYL TAB 400 MG PO SCH ×2 (08:31→20:14)
[2018-08-22] MEDS: MEGACE PO SCH (08:31)
[2018-08-22] MEDS: ROBITUSSIN DM PO SCH ×4 (08:32→20:15)
[2018-08-22] MEDS: COLACE CAP 100 MG PO SCH (08:32)
[2018-08-22] MEDS: PULMICORT NEB TX 0.5 MG NEB SCH ×4 (09:00→20:27)
[2018-08-22] MEDS: MUCOMYST 20% 200 MG/ML NEB SCH ×2 (09:00→20:27)
[2018-08-22] MEDS: PROVENTIL NEB TX 0.083% 2.5MG/ 3ML NEB SCH ×5 (09:00→20:27)
[2018-08-22] MEDS: BROVANA IN SCH ×2 (09:02→20:27)
[2018-08-22] MEDS: LOVENOX INJ 40 MG SYR SC SCH (17:44)
[2018-08-22] MEDS ORDERED: MILK OF MAGNESIA PO PRN (18:10)
[2018-08-22] MEDS ORDERED: POTASSIUM CHL 60 MEQ/NS 0.45% 500 ML IV PRN (19:01)
[2018-08-22] MEDS ORDERED: KLOR-CON PO PRN (19:01)
[2018-08-22] MEDS ORDERED: POTASSIUM CHLORIDE LIQ 20 MEQ UDC PO PRN (19:01)
[2018-08-22] MEDS ORDERED: K-RIDER 10 MEQ/NS 100 ML 10 MEQ/100 ML BAG IV PRN (19:01)
[2018-08-22] MEDS ORDERED: K-DUR TAB 20 MEQ PO PRN (19:01)
[2018-08-22] MEDS ORDERED: MICRO K EXTEN CAP 10 MEQ PO PRN (19:01)
[2018-08-22] MEDS ORDERED: POTASSIUM CHL 40 MEQ/NS 0.45% 500 ML IV PRN (19:01)
[2018-08-22] MEDS: SNACK - Diabetic Appropriate PO SCH (20:17)
[2018-08-22] MEDS: MAGNESIUM SULFATE 1 GRAM/100 mL PREMIX 1 GM/100 ML BAG IV PRN ×2 (21:02→22:21)
[2018-08-23 06:37] LABS: BASOPHILS % (AUTO) 0.5 % (0.2-1.0); EOSINOPHILS # (AUTO) 0.3 x10^3/uL (0.0-0.2); EOSINOPHILS % (AUTO) 4.7 % (0.9-2.9); HEMATOCRIT 37.4 % (42.0-54.0); HEMOGLOBIN 12.1 g/dL (13.5-18.0); LYMPHOCYTES % (AUTO) 16.2 % (21.0-51.0); MEAN CORPUSCULAR HEMOGLOBIN 27.8 pg (27.0-34.0); MEAN CORPUSCULAR HGB CONC 32.3 g/dL (33.0-35.0); MEAN CORPUSCULAR VOLUME 86.1 fL (80.0-100.0); MEAN PLATELET VOLUME 8.4 fL (7.4-11.0); MONOCYTES # (AUTO) 0.8 x10^3/uL (0.3-0.8); MONOCYTES % (AUTO) 12.7 % (0.0-13.0); NEUTROPHILS % (AUTO) 65.9 % (42.0-75.0); PLATELET COUNT 212 X10^3/uL (150.0-450.0); RED BLOOD COUNT 4.34 X10^6/uL (4.7-6.0); RED CELL DISTRIBUTION WIDTH 16.1 % (11.6-16.5); WHITE BLOOD COUNT 6.1 X10^3/uL (3.6-10.0)
[2018-08-23 07:04] LABS: ALANINE AMINOTRANSFERASE 15 Units/L (12-78); ALBUMIN 2.6 g/dL (3.4-5.0); ALKALINE PHOSPHATASE 51 Units/L (46-116); ASPARTATE AMINO TRANSFERASE 14 Units/L (15-37); BLOOD UREA NITROGEN 13 mg/dL (7-18); CALCIUM 8.5 mg/dL (8.5-10.1); CARBON DIOXIDE 29.8 mmol/L (21-32); CHLORIDE 101 mmol/L (98-107); COR CA(FOR HYPOALB) 9.6 mg/dL (8.5-10.1); CREATININE 0.63 mg/dL (0.70-1.30); MAGNESIUM 2.1 mg/dL (1.7-2.9); SODIUM 137 mmol/L (136-145); TOTAL PROTEIN 6.9 g/dL (6.4-8.2); eGFR NON BLACK RACES > 60 (>60)
[2018-08-23] MEDS: LEVAQUIN PREMIX IV 750 MG 750 MG/150 ML BAG IV SCH (08:51)
[2018-08-23] MEDS: MEGACE PO SCH (08:52)
[2018-08-23] MEDS: COLACE CAP 100 MG PO SCH (08:52)
[2018-08-23] MEDS: UNIPHYL TAB 400 MG PO SCH ×2 (08:52→20:56)
[2018-08-23] MEDS: ROBITUSSIN DM PO SCH ×4 (08:53→20:57)
[2018-08-23] MEDS: LOVENOX INJ 40 MG SYR SC SCH (08:53)
[2018-08-23] MEDS: PEPCID TAB 20 MG PO SCH ×2 (08:53→20:56)
[2018-08-23] MEDS: PULMICORT NEB TX 0.5 MG NEB SCH ×2 (09:26→21:13)
[2018-08-23] MEDS: BROVANA IN SCH ×2 (09:26→21:13)
[2018-08-23] MEDS: PROVENTIL NEB TX 0.083% 2.5MG/ 3ML NEB SCH ×4 (09:26→21:13)
[2018-08-23] MEDS: DIFLUCAN PO SCH (10:18)
[2018-08-23] MEDS: NS 1/2 1000 ML IV 1,000 ML IV SCH ×2 (10:26→16:50)
[2018-08-23] MEDS: NS 1/2 1000 ML IV 1,000 ML IV ONE ×2 (16:49→16:53)
[2018-08-23] MEDS: SNACK - Diabetic Appropriate PO SCH (21:00)
[2018-08-24] MEDS: NS 1/2 1000 ML IV 1,000 ML IV SCH (02:17)
[2018-08-24] MEDS ORDERED: NS 1/2 1000 ML IV 1,000 ML IV ONE (05:10)
[2018-08-24 06:14] LABS: BASOPHILS # (AUTO) 0.1 X10^3/uL (0.0-0.1); EOSINOPHILS # (AUTO) 0.4 x10^3/uL (0.0-0.2); EOSINOPHILS % (AUTO) 5.3 % (0.9-2.9); HEMATOCRIT 35.8 % (42.0-54.0); HEMOGLOBIN 11.5 g/dL (13.5-18.0); LYMPHOCYTES # (AUTO) 1.1 X10^3/uL (1.3-2.9); LYMPHOCYTES % (AUTO) 16.9 % (21.0-51.0); MEAN CORPUSCULAR HEMOGLOBIN 27.5 pg (27.0-34.0); MEAN CORPUSCULAR VOLUME 85.9 fL (80.0-100.0); MEAN PLATELET VOLUME 8.7 fL (7.4-11.0); MONOCYTES # (AUTO) 0.7 x10^3/uL (0.3-0.8); MONOCYTES % (AUTO) 9.8 % (0.0-13.0); NEUTROPHILS # (AUTO) 4.5 x10^3/uL (2.2-4.8); PLATELET COUNT 207 X10^3/uL (150.0-450.0); RED BLOOD COUNT 4.17 X10^6/uL (4.7-6.0); WHITE BLOOD COUNT 6.7 X10^3/uL (3.6-10.0)
[2018-08-24 06:21] LABS: ALANINE AMINOTRANSFERASE 14 Units/L (12-78); ALBUMIN 2.7 g/dL (3.4-5.0); ALKALINE PHOSPHATASE 46 Units/L (46-116); ASPARTATE AMINO TRANSFERASE 14 Units/L (15-37); BLOOD UREA NITROGEN 13 mg/dL (7-18); CALCIUM 8.4 mg/dL (8.5-10.1); CARBON DIOXIDE 28.6 mmol/L (21-32); CHLORIDE 101 mmol/L (98-107); COR CA(FOR HYPOALB) 9.4 mg/dL (8.5-10.1); CREATININE 0.61 mg/dL (0.70-1.30); SODIUM 136 mmol/L (136-145); TOTAL PROTEIN 6.8 g/dL (6.4-8.2); eGFR NON BLACK RACES > 60 (>60)
--- NOTE | 2018-08-24 06:42 | RAD ---
HISTORY: Cough Study: Chest AP portable Comparison: 08/21/2018 Findings: The patient is rotated to the right. The heart is within normal limits in size. The juan are normal. The lungs are mildly hyperinflated but free of acute alveolar infiltrates. Mild interstitial lung changes are present bilaterally right greater than left and unchanged from the prior examination. No acute alveolar infiltrates or pleural effusions are identified. The bony thorax is unremarkable. IMPRESSION: Mild hyperinflation, unchanged Chronic appearing interstitial lung disease, unchanged No acute alveolar infiltrates identified Reported By:
[2018-08-24] MEDS: UNIPHYL TAB 400 MG PO SCH (09:24)
[2018-08-24] MEDS: ROBITUSSIN DM PO SCH (09:24)
[2018-08-24] MEDS: DIFLUCAN PO SCH (09:25)
[2018-08-24] MEDS: LOVENOX INJ 40 MG SYR SC SCH (09:25)
[2018-08-24] MEDS: LEVAQUIN PREMIX IV 750 MG 750 MG/150 ML BAG IV SCH (09:25)
[2018-08-24] MEDS: PEPCID TAB 20 MG PO SCH (09:25)
[2018-08-24] MEDS: MEGACE PO SCH (09:25)
[2018-08-24] MEDS: COLACE CAP 100 MG PO SCH (09:25)
--- NOTE | 2018-08-24 09:28 | PCM.PROG ---
Progress Note - Progress Note for Day of Date of Exam: 08/22/18 - Subjective Subjective: 68 BM ADMITTED ON 08/20 WITH PNEUMONIA, CT CHEST CONFIRMED MULTI FOCAL PNEUMONIA, SPUTUM CULTURE COLLECTED ON ADMISSION, WITH YEAST GROWTH. DIFLUCAN ORDERED. PT S/P IV STEROIDS AND REPORTS FEELING MUCH BETTER, ASKING TO GO HOME. REVIEWED LABS AND XRAYS WITH PT, DISCUSSED NEED FOR REPEAT CT SCAN. POSSIBLE D/C HOME ON FRIDAY IF PT CONTINUES TO IMPROVE SYMPTOMATICALLY. REPEAT AM ABG - Past Medical Family Social History Past Med/Fam/Surg Hx: No changes since H&P Allergies: Allergies No Known Drug Allergies Allergy (Verified 08/19/18 15:21) - Review of Systems ROS: No change since H&P - Vital Signs and I&O's Vital Signs: Temperature 99.1 F Pulse Rate [Right] 87 Pulse Rate 97 Respiratory Rate 18 Blood Pressure [Right Arm] 122/77 Blood Pressure [Left Arm] 110/75 Blood Pressure 120/87 O2 Sat by Pulse Oximetry 96 Intake and Output: Intake & Output 08/21/18 08/22/18 08/23/18 08/24/18 11:59 11:59 11:59 11:59 Intake Total 2360 / 2360 760 / 760 1290 / 1290 2800 / 2800 Output Total 1200 / 1200 2000 / 2000 1745 / 1745 700 / 700 Balance 1160 / 1160 -1240 / -1240 -455 / -455 2099 / 2099 - Physical Exam Oriented: Normal Eyes: Normal Ear: Normal Nose: Normal Throat: Dry Respiratory: Diminished, Wheezes, Rhonchi Cardiovascular: Tachycardia. negative: Murmur : Normal Auscultation: Bowel Sounds: Normal Tenderness: Normal Skin: Decreased Turgur Musculoskeletal: Normal Psychiatric: Anxiety Affect: Anxious Speech Pattern: Clear, Appropriate - Laboratory and Diagnostics Result Diagrams: 08/24/18 05:35 08/24/18 05:35 Labs: 08/20/18 09:50 Urine,Clean Catch Urine Culture - Final 08/20/18 19:28 Sputum - Expectorated Sputum Sputum Culture - Final 08/20/18 19:28 Sputum - Expectorated Sputum - Final 08/19/18 20:43 Blood Blood Culture - Preliminary 08/19/18 15:50 Blood Blood Culture - Preliminary Laboratory WBC 6.7 X10^3/uL (3.6-10.0) 08/24/18 05:35 RBC 4.17 X10^6/uL (4.7-6.0) L 08/24/18 05:35 Hgb 11.5 g/dL (13.5-18.0) L 08/24/18 05:35 Hct 35.8 % (42.0-54.0) L 08/24/18 05:35 MCV 85.9 fL (80.0-100.0) 08/24/18 05:35 MCH 27.5 pg (27.0-34.0) 08/24/18 05:35 MCHC 32.0 g/dL (33.0-35.0) L 08/24/18 05:35 RDW 16.0 % (11.6-16.5) 08/24/18 05:35 Plt Count 207 X10^3/uL (150.0-450.0) 08/24/18 05:35 MPV 8.7 fL (7.4-11.0) 08/24/18 05:35 Neut % (Auto) 67.0 % (42.0-75.0) 08/24/18 05:35 Lymph % (Auto) 16.9 % (21.0-51.0) L 08/24/18 05:35 Morgan % (Auto) 9.8 % (0.0-13.0) 08/24/18 05:35 Eos % (Auto) 5.3 % (0.9-2.9) H 08/24/18 05:35 Baso % (Auto) 1.0 % (0.2-1.0) 08/24/18 05:35 Neut # (Auto) 4.5 x10^3/uL (2.2-4.8) 08/24/18 05:35 Lymph # (Auto) 1.1 X10^3/uL (1.3-2.9) L 08/24/18 05:35 Morgan # (Auto) 0.7 x10^3/uL (0.3-0.8) 08/24/18 05:35 Eos # (Auto) 0.4 x10^3/uL (0.0-0.2) H 08/24/18 05:35 Baso # (Auto) 0.1 X10^3/uL (0.0-0.1) 08/24/18 05:35 Absolute Nucleated RBC 0.1 /100WBC 08/24/18 05:35 D-Dimer 811 ng/mL (0-400) H* 08/19/18 16:16 Sample Site Rbra 08/20/18 06:45 ABG pH 7.420 (7.35-7.45) 08/20/18 06:45 ABG pCO2 59.0 mmHg (35.0-45.0) H* 08/20/18 06:45 ABG pO2 51.0 mmHg (80.0-100.0) L 08/20/18 06:45 ABG HCO3 38.3 mmol/L (22-26) H* 08/20/18 06:45 ABG O2 Saturation 86.0 % (90-100) L 08/20/18 06:45 ABG Base Excess 11.6 mmol/L (-2.0-2.0) H 08/20/18 06:45 Colin Test Na 08/20/18 06:45 A-a Gradient 103.0 mmHg 08/20/18 06:45 FiO2 32.0 08/20/18 06:45 Blood Gas Comments Sally abg well-mtf 08/20/18 06:45 Sodium 136 mmol/L (136-145) 08/24/18 05:35 Corrected Sodium TNP 08/24/18 05:35 Potassium 4.1 mmol/L (3.5-5.1) 08/24/18 05:35 Chloride 101 mmol/L (98-107) 08/24/18 05:35 Carbon Dioxide 28.6 mmol/L (21-32) 08/24/18 05:35 BUN 13 mg/dL (7-18) 08/24/18 05:35 Creatinine 0.61 mg/dL (0.70-1.30) L 08/24/18 05:35 Est GFR (MDRD) Af Amer > 60 (>60) 08/24/18 05:35 Est GFR (MDRD) Non-Af > 60 (>60) 08/24/18 05:35 Glucose 93 mg/dL (65-99) 08/24/18 05:35 POC Glucose (mg/dL) 81 mg/dL (65-99) 08/22/18 05:51 Hemoglobin A1c 6.4 % 08/20/18 04:54 Lactic Acid 1.0 mmol/L (0.4-2.0) 08/19/18 16:16 Calcium 8.4 mg/dL (8.5-10.1) L 08/24/18 05:35 Corrected Calcium 9.4 mg/dL (8.5-10.1) 08/24/18 05:35 Magnesium 2.1 mg/dL (1.7-2.9) 08/23/18 05:30 Total Bilirubin 0.50 mg/dL (0.2-1.0) 08/24/18 05:35 AST 14 Units/L (15-37) L 08/24/18 05:35 ALT 14 Units/L (12-78) 08/24/18 05:35 Alkaline Phosphatase 46 Units/L (46-116) 08/24/18 05:35 Total Protein 6.8 g/dL (6.4-8.2) 08/24/18 05:35 Albumin 2.7 g/dL (3.4-5.0) L 08/24/18 05:35 Globulin 4.1 g/dL (2.5-4.5) 08/24/18 05:35 Albumin/Globulin Ratio 0.7 Ratio (1.1-2.1) L 08/24/18 05:35 Specimen Type Clean catch urine 08/20/18 09:50 Urine Color Yellow (YELLOW) 08/20/18 09:50 Urine Appearance Slightly hazy (CLEAR) 08/20/18 09:50 Urine pH 6.0 (5.0 - 8.0) 08/20/18 09:50 Ur Specific [place] 1.015 (1.000-1.030) 08/20/18 09:50 Urine Protein 2+ (NEGATIVE) 08/20/18 09:50 Urine Glucose (UA) Negative (NEGATIVE) 08/20/18 09:50 Urine Ketones Negative (NEGATIVE) 08/20/18 09:50 Urine Occult Blood 2+ (NEGATIVE) 08/20/18 09:50 Urine Nitrite Positive (NEGATIVE) 08/20/18 09:50 Urine Bilirubin Negative (NEGATIVE) 08/20/18 09:50 Urine Urobilinogen 1+ (NORMAL) 08/20/18 09:50 Ur Leukocyte Esterase 3+ (NEGATIVE) 08/20/18 09:50 Urine RBC 0-2 /HPF (NONE SEEN) 08/20/18 09:50 Urine WBC 20-30 /HPF (NONE SEEN) 08/20/18 09:50 Ur Squamous Epith Cells Rare /HPF (NEGATIVE) 08/20/18 09:50 Ur Renal Epithelial Cell Rare /HPF (NEGATIVE) 08/20/18 09:50 Amorphous Sediment 1+ /HPF (NEGATIVE) 08/20/18 09:50 Urine Bacteria 1+ /HPF (NEGATIVE) 08/20/18 09:50 Urine Mucus Few /HPF (NEGATIVE) 08/20/18 09:50 Ur Culture Indicated? Yes/culture set up 08/20/18 09:50 - Plan (1) Pneumonia Status: Acute Plan: RESP THERAPY, SUPPLEMENTAL O2, IV SOLU MEDROL. BLOOD AND SPUTUM CULTURES COLLECTED ON ADMISSION, IV ATBX. BS AND BP CONTROL. REPEAT AM LABS, CT CHEST WITH CONTRAST WITH BILATERAL MULTI FOCAL PNEUMONIA, WILL NEED FOLLOW UP CT AFTER RESOLUTION OF ACUTE ILLNESS DUE TO RLL ABNORMALITY (2) COPD exacerbation Status: Acute (3) Hypertension Status: Chronic Qualifiers:
[2018-08-24] MEDS: BROVANA IN SCH (09:40)
[2018-08-24] MEDS: PROVENTIL NEB TX 0.083% 2.5MG/ 3ML NEB SCH (09:40)
[2018-08-24] MEDS: PULMICORT NEB TX 0.5 MG NEB SCH (09:41)
[2018-08-24 10:11] VITALS: BP 127/79
--- NOTE | 2018-09-11 01:04 | DR.CARTERD ---
- Discharge Summary for: Discharge Summary for Date of:: 08/24/18 - Admission Date Date of Admission: 08/19/18 - Admission Diagnoses Admission Diagnosis: (1) Pneumonia (2) COPD exacerbation (3) SOB (shortness of breath) (4) Hypertension - Discharge Date Discharge Date: 08/24/18 - Discharge Diagnoses Discharge Diagnosis: (1) Pneumonia (2) COPD exacerbation (3) Hypertension - Hospital Course Hospital Course: DAY ONE, 70 BM ER ADMISSION AFTER PRESENTING WITH CO CCC AND WHEEZING WITH INCREASED SOB. PT STATED HE SEEN HIS PCP, WINSTON REYNOLDS AND HAS TAKEN OUTPT INJECTIONS AND ANTIBIOTICS BY MOUTH WITHOUT IMPROVEMENT AND WAS REFERRED TO THE ER DUE TO INCREASED SOB. PT CXR ON ADMISSION WITH CHRONIC COPD FINDINGS. PO2 ON ADMISSION 36. PT ADMITTED FOR TREATMENT OF ACUTE ON CHRONIC RESP ILLNESS. WE CONTINUED TO MONITOR PATIENT. DAY THREE, 70 BM ADMITTED ON 08/19 WITH PNEUMONIA, CT CHEST CONFIRMED MULTI FOCAL PNEUMONIA, SPUTUM CULTURE PENDING, PT REPORTED IMPROVING WHEEZING, HAVING A HARD TIME COUGHING UP MUCOUS BECAUSE HE "FEELS WEAK". RESP THERAPY AND GENTLE HYDRATION CONTINUED ALONG WITH CURRENT PLAN OF CARE. WE REPEATED ABG IN THE AM. DAY FOUR, 70 BM ADMITTED ON 08/19 WITH PNEUMONIA, CT CHEST CONFIRMED MULTI FOCAL PNEUMONIA, SPUTUM CULTURE COLLECTED ON ADMISSION, WITH YEAST GROWTH. DIFLUCAN ORDERED. PT S/P IV STEROIDS AND REPORTS FEELING MUCH BETTER, ASKING TO GO HOME. REVIEWED LABS AND XRAYS WITH PT, DISCUSSED NEED FOR REPEAT CT SCAN. POSSIBLE D/C HOME ON FRIDAY IF PT CONTINUED TO IMPROVE SYMPTOMATICALLY. REPEATED AM ABG. DAY SIX, PATIENT SITTING UP IN BED ALERT AND ORIENTED. NO COMPLAINTS VOICED AT THIS TIME. PATIENT STATES, " I'M READY TO GO HOME." LUNG SOUNDS NOTED TO BE COARSE WITH WHEEZING ON AUSCULTATION. LABS WERE WITHIN NORMAL RANGE FOR PATIENT. VITALS WERE STABLE. PATIENT REQUESTING TO GO HOME. WE PLANNED FOR DISCHARGE. INSTRUCTIONS FOR MEDICATIONS AND FOLLOW UP DISCUSSED WITH PATIENT AND FAMILY, BOTH VOICED UNDERSTANDING. PATIENT DISCHARGED HOME IN STABLE CONDITION WITH FAMILY. - Discharge Medications Discharge Medications: Home Medication List albuterol sulfate 1 inh INHALATION Q4H PRN 08/19/18 [History] docusate sodium [Laxa Basic] 3 tab PO HS 08/19/18 [History] ergocalciferol (vitamin D2) [Vitamin D2] 50,000 unit PO QWEEK 08/19/18 [History] famotidine 1 tab PO BID 08/19/18 [History] megestrol 1 tab PO DAILY 08/19/18 [History] theophylline 0.5 mg PO BID 08/19/18 [History] budesonide 1 ea NEB BIDRESP #50 units 08/24/18 [Rx] dextromethorphan-guaifenesin [Mucinex DM] 1 tab PO Q12H #20 tab 08/24/18 [Rx] fluconazole [Diflucan] 100 mg PO QDAY #7 tab 08/24/18 [Rx] levofloxacin [Levaquin] 750 mg PO QDAY #10 tab 08/24/18 [Rx] Prescriptions: budesonide Javed Yoder dextromethorphan-guaifenesin [Mucinex DM] Javed Yoder fluconazole [Diflucan] Javed Yoder levofloxacin [Levaquin] Javed Yoder - Discharge Disposition Discharge Disposition: PATIENT TO FOLLOW UP IN OUR OFFICE IN ONE WEEK.
== END 2018-08-24 12:35 | disposition home or self-care (01) | DRG 194 ==
LOC: ER 15:15 → MED/SURG 15:15
PROVIDERS: ADMIT Internal Medicine; ATTEND Internal Medicine
CPT/HCPCS: 36415; 36600; 71010; 71045; 71275; 80053; 81001; 82803; 83036; 83605; 83735; 85025; 85378; 87040; 87070; 87086; 87205; 92507; 92523; 94640; 94760; 96365; 96367; 96374; 96375; 97110; 97163; 97166; 99283; 99284; A4222; S0179; G0378; J1650; J1815; J1956; J2920; J2930; J3475; J7608; J7613; J7620; J7626